=== PATIENT | male | born 1975 | race Caucasian/White ===

== ENCOUNTER 2018-02-07 20:08 | Emergency (ER) | payer MEDICAID ==
[2018-02-07 20:18] VITALS: O2SAT 100
--- NOTE | 2018-02-07 20:58 | C.PDOC ---
History Of Present Illness 42 year old male with PMHx of COPD, HTN, depression is brought to the ED accompanied by Police for evaluation. Patient was arrested in [facility] with no physical altercation. Patient states he has high blood pressure has not been taking his medications for the past 3 months. Patient teran snot recall the name of his medications besides clonidine. Patient also c/o bilateral weakness of his legs. Patient denies fever, chills, visual changes, headache, nausea, vomit, dizziness, CP, palpitations, SOB. Time Seen by Provider: 02/07/18 20:27 Chief Complaint (Nursing): Medical Clearance History Per: Patient History/Exam Limitations: no limitations Onset/Duration Of Symptoms: Hrs Current Symptoms Are (Timing): Still Present Recent travel outside of the [place] States: No Additional History Per: Patient Past Medical History Reviewed: Historical Data, Nursing Documentation, Vital Signs Vital Signs: Last Vital Signs Temp 98.2 F 02/07/18 20:15 Pulse 51 L 02/07/18 20:15 Resp 20 02/07/18 20:15 BP 166/112 H 02/07/18 20:15 Pulse Ox 100 02/07/18 20:15 - Medical History PMH: Asthma, Bipolar Disorder, COPD, HTN, Schizophrenia Denies: HIV, Chronic Kidney Disease Surgical History: No Surg Hx - [facility] Procedures INTRODUCTION OF ANTI-INFLAM INTO RESP TRACT, VIA OPENING (09/04/17) Family History: States: Unknown Family Hx - Social History Hx Tobacco Use: Yes (2 packs a day) Hx Alcohol Use: No Hx Substance Use: No Review Of Systems Constitutional: Negative for: Fever, Chills Eyes: Negative for: Vision Change Cardiovascular: Negative for: Chest Pain, Palpitations Respiratory: Negative for: Shortness of Breath Gastrointestinal: Negative for: Nausea, Vomiting, Abdominal Pain Skin: Negative for: Rash Neurological: Negative for: Weakness, Numbness, Headache, Dizziness Physical Exam - Physical Exam Appears: Non-toxic, No Acute Distress Skin: Normal Color, Warm, Dry Head: Atraumatic, Normacephalic, Other (healing bruise forehead) Eye(s): bilateral: Normal Inspection, PERRL, EOMI Oral Mucosa: Moist Neck: Normal ROM, Supple Chest: Symmetrical Cardiovascular: Rhythm Irregular Respiratory: Normal Breath Sounds, No Rales, No Rhonchi, No Wheezing Gastrointestinal/Abdominal: Soft, No Tenderness, No Guarding, No Rebound Extremity: Normal ROM, No Tenderness, No Swelling Neurological/Psych: Oriented x3, Normal Speech, Normal Cognition, Normal Motor, Normal Sensation Gait: Steady ED Course And Treatment ECG: Interpreted By Me, Viewed By Me ECG Rhythm: Sinus Bradycardia ECG Interpretation: Normal (sinus arrythmia, typical in younger patients.) Rate From EC (BPM) O2 Sat by Pulse Oximetry: 100 (On RA) Pulse Ox Interpretation: Normal Medical Decision Making Medical Decision Making: Plan: * EKG * Vasotec 40 mg PO moderately well controlled BP off Clonidine, which is inappropriate mediation for incarcerated pt Start Vasotec PO, recommend continued as inpt. no acute neurological symptoms nor evidence of hypertensive Urgency/Emergency. sinus arrythmia no intervention needed elevated BP ? related to nicotine w/d, anxiety, baseline chronic HTN Start Vasotec 40 QD Recommend to continue same while incarcerated Medically cleared for incarceration Disposition - Disposition Disposition: RELEASED IN POLICE CUST[employer] Disposition Time: 21:18 Condition: GOOD Forms: [facility] (Portuguese) - Clinical Impression Clinical Impression: Medical assessment, Hypertension - Scribe Statement The provider has reviewed the documentation as recorded by the Scribe Jimbo Osullivan All medical record entries made by the Scribe were at my direction and personally dictated by me. I have reviewed the chart and agree that the record accurately reflects my personal performance of the history, physical exam, medical decision making, and the department course for this patient. I have also personally directed, reviewed, and agree with the discharge instructions and disposition.
[2018-02-07 21:38] VITALS: BP 161/109; PULSE 50; RESP 18; TEMP 97.6
--- NOTE | 2018-02-10 19:41 | CARD ---
APPROVED REPORT Date of service: 02/07/2018 EKG Measurement Heart [id number] <Conclusion> Sinus bradycardia with 1st degree AV block Otherwise normal ECG
== END 2018-02-07 21:39 ==
LOC: C.ER 20:08
DX: I10 Essential (primary) hypertension (principal); F20.9 Schizophrenia, unspecified; F31.9 Bipolar disorder, unspecified; J44.9 Chronic obstructive pulmonary disease, unspecified; F17.210 Nicotine dependence, cigarettes, uncomplicated

== ENCOUNTER 2018-03-30 09:23 | Emergency (ER) | payer MEDICAID ==
[2018-03-30] MEDS ORDERED: Albuterol-Ipratrop 3 mg / 0.5 (3 ml) UD ONE (10:06)
--- NOTE | 2018-03-30 10:15 | RAD ---
Date of service: 03/30/2018 PROCEDURE: CHEST RADIOGRAPH, 1 VIEW HISTORY: SOB COMPARISON: None available. FINDINGS: LUNGS: The lungs are well inflated and clear. No focal consolidation. There is minimal discoid atelectasis in the lower lobes. PLEURA: No pneumothorax. There is blunting of both costophrenic angles. CARDIOVASCULAR: The heart is normal in size. No aortic atherosclerotic calcifications present. OSSEOUS STRUCTURES: Within normal limits for the patient's age. VISUALIZED UPPER ABDOMEN: Normal. OTHER FINDINGS: None. IMPRESSION: No active pulmonary disease. Blunting of costophrenic angles may represent small effusion or pleural thickening.
[2018-03-30 10:29] LABS: BASO % 0.4 % (0.0-2.0); EOS # 0.1 K/uL (0.0-0.7); EOS % 1.2 % (0.0-4.0); HEMOGLOBIN 14.4 g/dL (12.0-18.0); LYMPH # 1.8 K/uL (1.0-4.3); LYMPH % 40.4 % (20.0-40.0); MEAN CELL VOLUME 91.2 fL (80.0-94.0); MEAN CORPUSCULAR HEMOGLOBIN 30.5 pg (27.0-31.0); MEAN CORPUSCULAR HGB CONC 33.5 g/dL (33.0-37.0); MEAN PLATELET VOLUME 10.2 fL (7.2-11.7); MONO # 0.6 K/uL (0.0-0.8); RBC 4.73 Mil/uL (4.40-5.90); RED CELL DISTRIBUTION WIDTH 13.7 % (11.5-14.5); WHITE BLOOD COUNT 4.4 K/uL (4.8-10.8)
[2018-03-30] MEDS: Albuterol-Ipratrop 3 mg / 0.5 (3 ml) UD IH SCH (10:50)
[2018-03-30 10:54] LABS: ALB/GLOB RATIO 1.4 (1.0-2.1); ALBUMIN 4.7 g/dL (3.5-5.0); ALT/SGPT 25 U/L (21-72); AST/SGOT 21 U/L (17-59); BLOOD UREA NITROGEN 11 mg/dL (9-20); CALCIUM 9.5 mg/dl (8.6-10.4); GFR NON-AFRICAN AMERICAN > 60
--- NOTE | 2018-03-30 10:56 | C.PDOC ---
History Of Present Illness 42 year old male presents with a history of hypertension and mental illness presents to the ED for evaluation of constant shortness of breath exacerbated by exertion for 3 days. Denies fever, chills, nausea, vomiting, and any other associated symptoms. Time Seen by Provider: 03/30/18 09:52 Chief Complaint (Nursing): Shortness Of Breath History Per: Patient History/Exam Limitations: no limitations Onset/Duration Of Symptoms: Days (x3) Current Symptoms Are (Timing): Still Present Recent travel outside of the [place]: No Past Medical History Reviewed: Historical Data, Nursing Documentation, Vital Signs Vital Signs: Last Vital Signs Temp 98.3 F 03/30/18 09:38 Pulse 72 03/30/18 09:38 Resp 18 03/30/18 09:38 BP 190/129 H 03/30/18 09:38 Pulse Ox 97 03/30/18 09:38 - Medical History PMH: Asthma, Bipolar Disorder, COPD, HTN, Schizophrenia Denies: HIV, Chronic Kidney Disease - [facility] Procedures INTRODUCTION OF ANTI-INFLAM INTO RESP TRACT, VIA OPENING (09/04/17) Family History: States: Unknown Family Hx - Social History Hx Tobacco Use: Yes (2 packs a day) Hx Alcohol Use: No Hx Substance Use: No Review Of Systems Except As Marked, All Systems Reviewed And Found Negative. Constitutional: Negative for: Fever, Chills Respiratory: Positive for: Shortness of Breath Gastrointestinal: Negative for: Nausea, Vomiting Physical Exam - Physical Exam Appears: Non-toxic, No Acute Distress Skin: Normal Color, Warm, Dry Head: Atraumatic, Normacephalic Eye(s): bilateral: Normal Inspection Oral Mucosa: Moist Neck: Normal ROM, Supple Chest: Symmetrical, No Deformity Cardiovascular: Rhythm Regular, No Murmur Respiratory: No Rales, No Rhonchi, Wheezing (bilaterally. ), Other (moderate respiratory distress.) Gastrointestinal/Abdominal: Soft, No Tenderness, Other (right inguinal hernia easily reducible.) Extremity: Bilateral: Atraumatic, Normal Color And Temperature, Normal ROM Neurological/Psych: Oriented x3, Normal Speech, Normal Cognition ED Course And Treatment - Laboratory Results Result Diagrams: 03/30/18 10:18 03/30/18 10:18 ECG Rhythm: Sinus Rhythm Interpretation Of ECG: No ST elevation. QT normal. Rate From EC O2 Sat by Pulse Oximetry: 97 (RA) Pulse Ox Interpretation: Normal - Other Rad CXR X-Ray: Viewed By Me, Read By Radiologist Interpretation: FINDINGS: LUNGS: The lungs are well inflated and clear. No focal consolidation. There is minimal discoid atelectasis in the lower lobes. PLEURA: No pneumothorax. There is blunting of both costophrenic angles. CARDIOVASCULAR: The heart is normal in size. No aortic atherosclerotic calcifications present. OSSEOUS STRUCTURES: Within normal limits for the patient's age. VISUALIZED UPPER ABDOMEN: Normal. OTHER FINDINGS: None. IMPRESSION: No active pulmonary disease. Blunting of costophrenic angles may represent small effusion or pleural thickening. Critical Care Time - Critical Care Note Total Time (in mins): 35 Documented critical care: time excludes all time spent performing seperately billable procedures. Medical Decision Making Medical Decision Making: Initial plan: -EKG -Blood sent. -CXR -Duoneb nebulizer treatment. -Solu-medrol -[facility] Progress/Update: Improved in O2 Sat, bp 124/90, lungs: mild wheezing good air movement. Disposition Counseled Patient/Family Regarding: Diagnosis, Need For Followup, Rx Given - Disposition Referrals: Lety Barfield MD [Staff Provider] - Disposition: HOME/ ROUTINE Disposition Time: 12:55 Condition: STABLE Prescriptions: Albuterol HFA [Ventolin HFA 90 mcg/actuation (8 g)] 2 puff IH [id number] #1 puff Enalapril/Hydrochlorothiazide [Enalapril-Hctz 10-25 mg Tablet] 1 each PO DAILY #15 tablet Prednisone [Deltasone] 20 mg PO BID #8 tablet Instructions: Chronic Obstructive Pulmonary Disease (COPD), Including Emphysema, High Blood Pressure in Adults Forms: [facility] (Greek), General Discharge Instructions - Clinical Impression Clinical Impression: Chr obstructive pulmonary disease w/ acute lower respiratory infxn, Hypertension - Scribe Statement The provider has reviewed the documentation as recorded by the Scribe (Jessica Kern) Provider Attestation: All medical record entries made by the Scribe were at my direction and personally dictated by me. I have reviewed the chart and agree that the record accurately reflects my personal performance of the history, physical exam, medical decision making, and the department course for this patient. I have also personally directed, reviewed, and agree with the discharge instructions and disposition.
[2018-03-30 11:05] LABS: B-TYPE NATRIURETIC PEPTIDE 88.3 pg/mL (0-450)
[2018-03-30] MEDS ORDERED: Albuterol 0.083% Inhal Sol (2.5 mg/3 mL) UD INH STA (11:23)
[2018-03-30] MEDS ORDERED: Magnesium Sulfate 1 gm in D5W 1 GM/100 ML BAG IVPB ONE (12:07)
[2018-03-30 14:13] VITALS: BP 137/90; PULSE 75; RESP 18; TEMP 98
[2018-03-30 19:31] VITALS: O2SAT 97
--- NOTE | 2018-03-31 21:20 | CARD ---
APPROVED REPORT Date of service: 03/30/2018 EKG Measurement Heart [id number] <Conclusion> Normal sinus rhythm with sinus arrhythmia Normal ECG
== END 2018-03-30 14:23 | disposition home or self-care (01) ==
LOC: C.ER 09:23
DX: J44.0 Chronic obstructive pulmonary disease with (acute) lower respiratory infection (principal); I10 Essential (primary) hypertension; Z87.891 Personal history of nicotine dependence
CPT/HCPCS: 71045; 80053; 83880; 84484; 85025; 87804; 93005; 94640; 96365; 99284; J2930; J3475

== ENCOUNTER 2018-05-11 09:26 | Inpatient (IN) | payer MEDICAID ==
[2018-05-11 09:26] VITALS: BMI 18.8
[2018-05-11] MEDS ORDERED: Albuterol-Ipratrop 3 mg / 0.5 (3 ml) UD ONE (09:44)
[2018-05-11] MEDS ORDERED: Albuterol-Ipratrop 3 mg / 0.5 (3 ml) UD INH STA (10:06)
[2018-05-11 10:28] LABS: BASO % 0.7 % (0.0-2.0); EOS # 0.1 K/uL (0.0-0.7); EOS % 1.4 % (0.0-4.0); LYMPH # 1.7 K/uL (1.0-4.3); MEAN CELL VOLUME 92.7 fL (80.0-94.0); MEAN CORPUSCULAR HGB CONC 33.5 g/dL (33.0-37.0); MEAN PLATELET VOLUME 9.4 fL (7.2-11.7); MONO # 0.6 K/uL (0.0-0.8); MONO % 11.3 % (0.0-10.0); NEUT # 2.5 K/uL (1.8-7.0); NEUT % 51.6 % (50.0-75.0); RBC 4.18 Mil/uL (4.40-5.90); RED CELL DISTRIBUTION WIDTH 14.2 % (11.5-14.5); WHITE BLOOD COUNT 4.9 K/uL (4.8-10.8)
--- NOTE | 2018-05-11 10:28 | C.PDOC ---
History Of Present Illness 42 year old male with history of COPD, HTN, and Schizophrenia presents to ED for medical evaluation of worsening SOB with associated productive cough, chills, and right-sided headache. Patient states that for the past month he has had constant SOB, despite use of Ventolin. Patient's productive cough has sputum that is yellow in nature. Patient was last seen at [facility] on 05/04/18 for COPD exacerbation and was advised to continue using his Albuterol inhaler and was given Pregnisone 20 mg PO BID. Patient was advised to follow up with clinic; however, he states that his SOB has worsened to dyspnea with exertion. He denies any dizziness, weakness, chest pain, nausea, vomiting, and abdominal pain. Time Seen by Provider: 05/11/18 09:44 Chief Complaint (Nursing): Shortness Of Breath History Per: Patient History/Exam Limitations: no limitations Onset/Duration Of Symptoms: Worse Since, Other (1 month) Current Symptoms Are (Timing): Still Present Current Respiratory Medications: Other (ventolin pump) Associated Symptoms: Chills, Productive Cough, Other (Headache). denies: Fever, Chest Pain, Dizziness Past Medical History Reviewed: Historical Data, Nursing Documentation, Vital Signs Vital Signs: Last Vital Signs Temp 97.9 F 05/11/18 09:38 Pulse 58 L 05/11/18 09:38 Resp 22 05/11/18 09:38 BP 165/105 H 05/11/18 09:38 Pulse Ox 99 05/11/18 09:38 - Medical History PMH: Asthma, Bipolar Disorder, COPD, HTN, Pneumonia, Schizophrenia Denies: HIV, Chronic Kidney Disease Surgical History: No Surg Hx - [facility] Procedures INTRODUCTION OF ANTI-INFLAM INTO RESP TRACT, VIA OPENING (09/04/17) Family History: States: Unknown Family Hx - Social History Hx Tobacco Use: Yes (2 packs a day) Hx Alcohol Use: No Hx Substance Use: No - Immunization History Hx Tetanus Toxoid Vaccination: Yes Hx Influenza Vaccination: Yes Hx Pneumococcal Vaccination: No Review Of Systems Constitutional: Positive for: Chills. Negative for: Fever, Weakness Eyes: Negative for: Vision Change Cardiovascular: Negative for: Chest Pain, Palpitations Respiratory: Positive for: Cough, SOB with Excertion, Sputum (yellow in nature), Wheezing Gastrointestinal: Negative for: Nausea, Vomiting, Abdominal Pain Musculoskeletal: Negative for: Neck Pain Neurological: Positive for: Headache (right-sided). Negative for: Weakness, Dizziness Physical Exam - Physical Exam Appears: Non-toxic, No Acute Distress Skin: Normal Color, Warm, Dry Head: Atraumatic, Normacephalic Eye(s): bilateral: Normal Inspection, PERRL Nose: No Discharge Oral Mucosa: Moist Throat: No Erythema, No Exudate Neck: Normal ROM, Supple Chest: Symmetrical, No Deformity Cardiovascular: Rhythm Regular, No Murmur Respiratory: No Accessory Muscle Use, Rhonchi (lower base of the right side), Wheezing (diffuse) Gastrointestinal/Abdominal: Soft, No Tenderness Extremity: No Pedal Edema, Capillary Refill (<2 seconds) Extremity: Bilateral: Atraumatic, Normal Color And Temperature Neurological/Psych: Oriented x3, Normal Speech, Normal Cognition, Normal Motor, Normal Sensation ED Course And Treatment - Laboratory Results Result Diagrams: 05/11/18 10:22 05/11/18 10:22 ECG: Interpreted By Me, Viewed By Me ECG Rhythm: Sinus Rhythm Interpretation Of ECG: sinus rhythm with 1st degree AV block with premature atrial complexes Rate From EC O2 Sat by Pulse Oximetry: 99 (RA) - Other Rad CXR X-Ray: Interpreted by Me, Viewed By Me Interpretation: Accession No. : [id number]. Patient Name / ID : SUKHWINDER LORD / [id number]. Exam Date : 05/11/2018 10:15:52 ( Approved ). Study Comment : Sex / Age : M / 42Y. Creator : Nino Suero MD. Dictator : Nino Suero MD. Customer Resolution Specialist : Special Makeup Fx Artist Instructor : Nino Suero MD. Approver2 : Report Date : 05/11/2018 11:36:39. My Comment : . Date of service: 05/11/2018. HISTORY: SOB. COMPARISON: 03/30/2018. TECHNIQUE: Chest PA and lateral. FINDINGS: LUNGS: No active pulmonary disease. PLEURA: No significant pleural effusion identified. No pneumothorax apparent. CARDIOVASCULAR: No aortic atherosclerotic calcification present. Normal cardiac size. No pulmonary vascular congestion. OSSEOUS STRUCTURES: No significant abnormalities. VISUALIZED UPPER ABDOMEN: Normal. OTHER FINDINGS: None. IMPRESSION: No active disease. Medical Decision Making Medical Decision Making: Impression: SOB, RODRIGUES, COPD exacerbation Plan: EKG and CXR ordered for patient. Labs ordered including cardiac enzymes Patient given Duoneb INH x 2 and Solu- Medrol IVP HCTZ and Enalipril given to lower BP (denies taking this morning) Patient reassessed and is still wheezing Magnesium IVPB x 2 Patient reassessed and slight improvement of wheezing but patient still feels SOB D/W Dr. Nino Moss- accepted patient for admission Ordered urine tox as per request Disposition Discussed With : Nino Moss Doctor Will See Patient In The: Hospital Counseled Patient/Family Regarding: Studies Performed, Diagnosis, Need For Followup - Disposition Disposition: HOSPITALIZED Disposition Time: 13:13 Condition: STABLE Forms: [employer] (Setswana) - Clinical Impression Clinical Impression: COPD (chronic obstructive pulmonary disease), Dyspnea, SOB (shortness of breath) on exertion - PA / RETAIL MERCHANDISING SPECIALIST / Resident Statement MD/DO has reviewed & agrees with the documentation as recorded. (Joyce Cross) - Scribe Statement The provider has reviewed the documentation as recorded by the Scribe (Joyce Cross) All medical record entries made by the Scribe were at my direction and perso arun dictated by me. I have reviewed the chart and agree that the record accurately reflects my personal performance of the history, physical exam, medical decision making, and the department course for this patient. I have also personally directed, reviewed, and agree with the discharge instructions and disposition. Decision To Admit - Pt Status Changed To: Hospital Disposition Of: Observation - . Bed Request Type: Regular Admitting Physician: Nino Moss Patient Diagnosis: COPD (chronic obstructive pulmonary disease), Dyspnea, SOB (shortness of breath) on exertion
[2018-05-11 10:50] LABS: ALB/GLOB RATIO 1.2 (1.0-2.1); ALBUMIN 3.7 g/dL (3.5-5.0); ALT/SGPT 8 U/L (21-72); AST/SGOT 17 U/L (17-59); BLOOD UREA NITROGEN 8 mg/dL (9-20); CALCIUM 9.1 mg/dl (8.6-10.4); GFR NON-AFRICAN AMERICAN > 60
[2018-05-11 10:59] LABS: B-TYPE NATRIURETIC PEPTIDE 110 pg/mL (0-450)
[2018-05-11] MEDS ORDERED: Magnesium Sulfate 1 gm in D5W 1 GM/100 ML BAG IVPB ONE ×2 (10:59→11:01)
[2018-05-11] MEDS ORDERED: Magnesium Sulfate 1 gm in D5W 2 GM/200 ML BAG IVPB ONE (11:10)
--- NOTE | 2018-05-11 11:40 | RAD ---
Date of service: 05/11/2018 HISTORY: SOB COMPARISON: 03/30/2018 TECHNIQUE: Chest PA and lateral FINDINGS: LUNGS: No active pulmonary disease. PLEURA: No significant pleural effusion identified. No pneumothorax apparent. CARDIOVASCULAR: No aortic atherosclerotic calcification present. Normal cardiac size. No pulmonary vascular congestion. OSSEOUS STRUCTURES: No significant abnormalities. VISUALIZED UPPER ABDOMEN: Normal. OTHER FINDINGS: None. IMPRESSION: No active disease.
[2018-05-11 13:34] VITALS: RESP 20
--- NOTE | 2018-05-11 13:56 | CP.PCM.HP ---
<Mark Ontiveros - Last Filed: 05/11/18 18:09> History of Present Illness - History of Present Illness History of Present Illness: History and physical for Hospitalist service HPI: Patient is a 42 year old male with history of COPD, hypertension, schizophrenia, bipolar disorder, possible TIA, who presents for 3 week history of progressively worsening shortness of breath worse with exertion associated with cough productive of yellow, occasionally blood tinged sputum. He states he has had fevers and chills on and off. States he had a recent right sided headache, which has since decreased associated with blurry vision. Denies any changes in hearing. Denies sore throat. Patient complains of chest pain describes as feeling like someone is sitting on his chest for the past 2 days associated with palpitations when he feels anxious. Patient denies abdominal pain, nausea, vomiting, diarrhea, constipation, urinary symptoms, dysuria, leg pain. He admits to have unspecified balance issues, but has not followed up for those issues. Patient denies recent travel, recent sick contacts. PMH: COPD, HTN, schizophrenia, bipolar, possible TIA PSH: chest tube for pleural effusions Home meds: unspecified. Gets medications from [facility] in [place]. Allergies: NKDA Social hx: former smoker, quit 1 month ago. Smoked >2ppd for 15 years. denies alcohol use. Used to smoke marijuana, denies drugs. Lives with his girlfriend. Family hx: Brother - , epilepsy. Mother and father: alive and healthy. Healthcare proxy: Girlfriend Jessica [phone] Full code Present on Admission - Present on Admission Any Indicators Present on Admission: No Review of Systems - Constitutional Constitutional: Chills, Fever - EENT Nose/Mouth/Throat: absent: Sore Throat - Cardiovascular Cardiovascular: Dyspnea, Palpitations. absent: Syncope - Respiratory Respiratory: Cough, Dyspnea on Exertion - Gastrointestinal Gastrointestinal: absent: Abdominal Pain, Diarrhea, Nausea, Vomiting - Genitourinary Genitourinary: absent: Difficulty Urinating, Dysuria - Musculoskeletal Musculoskeletal: absent: Back Pain - Psychiatric Psychiatric: Anxiety, Auditory Hallucinations (hears his brother's voice, recently was anniversary of his brother's ), Depression Past Patient History - Past Medical History & Family History Past Medical History?: Yes - Past Social History Smoking Status: Former Smoker - CARDIAC Hx Hypertension: Yes - PULMONARY Hx Asthma: Yes Hx Chronic Obstructive Pulmonary Disease (COPD): Yes Hx Pneumonia: Yes - NEUROLOGICAL Hx Neurological Disorder: No - HEENT Hx HEENT Problems: No - RENAL Hx Chronic Kidney Disease: No - ENDOCRINE/METABOLIC Hx Endocrine Disorders: No - HEMATOLOGICAL/ONCOLOGICAL Hx Human Immunodeficiency Virus (HIV): No - INTEGUMENTARY Hx Dermatological Problems: No - MUSCULOSKELETAL/RHEUMATOLOGICAL Hx Musculoskeletal Disorders: Yes Hx Falls: Yes - GASTROINTESTINAL Hx Gastrointestinal Disorders: No - GENITOURINARY/GYNECOLOGICAL Hx Genitourinary Disorders: No - PSYCHIATRIC Hx Bipolar Disorder: Yes Hx Schizophrenia: Yes Hx Substance Use: No - SURGICAL HISTORY Hx Surgeries: Yes Other/Comment: "chest tube from pneumonia" - ANESTHESIA Hx Anesthesia: No Hx Anesthesia Reactions: No Hx Malignant Hyperthermia: No Meds Allergies/Adverse Reactions: Allergies Allergy/AdvReac Type Severity Reaction Status Date / Time No Known Allergies Allergy Verified 05/11/18 09:41 Physical Exam - Constitutional Appears: Non-toxic Additional comments: Patient appears short of breath - Head Exam Head Exam: ATRAUMATIC, NORMOCEPHALIC - Eye Exam Eye Exam: EOMI, PERRL - ENT Exam ENT Exam: Mucous Membranes Moist, Normal Oropharynx - Neck Exam Neck exam: Positive for: Full Rom. Negative for: Tenderness, Thyromegaly - Respiratory Exam Respiratory Exam: Rhonchi, Wheezes. absent: Chest Wall Tenderness, Respiratory Distress, Stridor - Cardiovascular Exam Cardiovascular Exam: REGULAR RHYTHM, +S1, +S2. absent: Gallop, Rubs, Systolic Murmur - GI/Abdominal Exam GI & Abdominal Exam: Normal Bowel Sounds, Soft. absent: Distended, Firm, Guarding, Hernia, Tenderness - Extremities Exam Extremities exam: Positive for: pedal pulses present. Negative for: calf tenderness, pedal edema - Back Exam Back exam: absent: CVA tenderness (L), CVA tenderness (R) - Neurological Exam Neurological exam: Alert, CN II-XII Intact, Oriented x3 - Psychiatric Exam Psychiatric exam: Normal Affect, Normal Mood - Skin Skin Exam: Dry, Intact, Warm Results - Vital Signs Recent Vital Signs: Last Vital Signs Temp 97.9 F 05/11/18 09:38 Pulse 72 05/11/18 13:33 Resp 20 05/11/18 13:33 BP 158/95 H 05/11/18 13:33 Pulse Ox 96 05/11/18 13:33 - Labs Result Diagrams: 05/11/18 10:22 05/11/18 10:22 Labs: Laboratory Results - last 24 hr 05/11/18 05/11/18 10:22 10:22 WBC 4.9 RBC 4.18 L Hgb 13.0 Hct 38.7 MCV 92.7 MCH 31.0 MCHC 33.5 RDW 14.2 Plt Count 317 D MPV 9.4 Neut % (Auto) 51.6 Lymph % (Auto) 35.0 [place] % (Auto) 11.3 H Eos % (Auto) 1.4 Baso % (Auto) 0.7 Neut # (Auto) 2.5 Lymph # (Auto) 1.7 [place] # (Auto) 0.6 Eos # (Auto) 0.1 Baso # (Auto) 0.0 Sodium 139 Potassium 4.2 Chloride 106 Carbon Dioxide 27 Anion Gap 10 BUN 8 L Creatinine 0.6 L Est GFR ( Amer) > 60 Est GFR (Non-Af Amer) > 60 Random Glucose 86 D Calcium 9.1 Total Bilirubin 0.4 AST 17 D ALT 8 L D Alkaline Phosphatase 63 Troponin I < 0.0120 NT-Pro-B Natriuret Pep 110 Total Protein 6.7 Albumin 3.7 Globulin 3.0 Albumin/Globulin Ratio 1.2 Assessment & Plan - Assessment and Plan (Free Text) Assessment: 42 year old male with history of COPD, hypertension, schizophrenia who presents for worsening shortness of breath. Plan: Acute Dyspnea worse with exertion Hx of COPD In ED: patient received Duoneb, Solumedrol [id number]. Duonebs Q4 [facility] Breo ellipta Solumedrol 40mg IV Q8 proBNP 110 Troponin <0.0120 EKG: SR at 63 CXR: hyperinflated No leukocytosis, afebrile f/u HIV, alpha antitrypsin, legionella, mycoplasma, Strep pneumonia f/u ECHO f/u Urine drug screen, hep panel, TSH, T4 History of hypertension Blood pressure elevated Received Enalapril 10mg PO, HCTZ 25mg PO in ED Avoid beta blockers until UDS Norvasc 5mg PO daily Schizophrenia Bipolar disorder Patient states he has not taken any medications since he has suicidal thoughts Currently orientedx3, admits to hearing his brother's thoughts after recent anniversary of his History of possible TIA ASA 81mg PO Follow up lipid panel, A1c, TSH/T4, Unsteady gait PT/OT Follow up Urine drug screen Prophylaxis: Heart healthy diet SCDs Pepcid 20mg Case discussed with Dr. Isa Ontiveros, PGY1 <Nino Moss - Last Filed: 05/11/18 18:29> Results - Vital Signs Recent Vital Signs: Last Vital Signs Temp 98.4 F 05/11/18 15:00 Pulse 68 05/11/18 15:00 Resp 20 05/11/18 15:00 BP 146/88 05/11/18 15:00 Pulse Ox 98 05/11/18 15:00 - Labs Result Diagrams: 05/11/18 10:22 05/11/18 10:22 Labs: Laboratory Results - last 24 hr 05/11/18 05/11/18 05/11/18 10:22 10:22 16:37 WBC 4.9 RBC 4.18 L Hgb 13.0 Hct 38.7 MCV 92.7 MCH 31.0 MCHC 33.5 RDW 14.2 Plt Count 317 D MPV 9.4 Neut % (Auto) 51.6 Lymph % (Auto) 35.0 [place] % (Auto) 11.3 H Eos % (Auto) 1.4 Baso % (Auto) 0.7 Neut # (Auto) 2.5 Lymph # (Auto) 1.7 [place] # (Auto) 0.6 Eos # (Auto) 0.1 Baso # (Auto) 0.0 Sodium 139 Potassium 4.2 Chloride 106 Carbon Dioxide 27 Anion Gap 10 BUN 8 L Creatinine 0.6 L Est GFR ( Amer) > 60 Est GFR (Non-Af Amer) > 60 Random Glucose 86 D Hemoglobin A1c Calcium 9.1 Total Bilirubin 0.4 AST 17 D ALT 8 L D Alkaline Phosphatase 63 Troponin I < 0.0120 NT-Pro-B Natriuret Pep 110 Total Protein 6.7 Albumin 3.7 Globulin 3.0 Albumin/Globulin Ratio 1.2 Triglycerides Cholesterol LDL Cholesterol Direct HDL Cholesterol Thyroxine (T4) TSH 3rd Generation Urine Opiates Screen Negative Urine Methadone Screen Negative Ur Barbiturates Screen Negative Ur Phencyclidine Scrn Negative Ur Amphetamines Screen Negative U Benzodiazepines Scrn Negative U Oth Cocaine Metabols Negative U Cannabinoids Screen Negative Hepatitis A IgM Ab Hep Bs Antigen Hep B Core IgM Ab Hepatitis C Antibody HIV 1&2 Antibody Screen 05/11/18 05/11/18 05/11/18 17:02 17:02 17:02 WBC RBC Hgb Hct MCV MCH MCHC RDW Plt Count MPV Neut % (Auto) Lymph % (Auto) [place] % (Auto) Eos % (Auto) Baso % (Auto) Neut # (Auto) Lymph # (Auto) [place] # (Auto) Eos # (Auto) Baso # (Auto) Sodium Potassium Chloride Carbon Dioxide Anion Gap BUN Creatinine Est GFR ( Amer) Est GFR (Non-Af Amer) Random Glucose Hemoglobin A1c 5.7 Calcium Total Bilirubin AST ALT Alkaline Phosphatase Troponin I NT-Pro-B Natriuret Pep Total Protein Albumin Globulin Albumin/Globulin Ratio Triglycerides 50 Cholesterol 153 LDL Cholesterol Direct 84 HDL Cholesterol 60 Thyroxine (T4) 9.91 TSH 3rd Generation 0.23 L Urine Opiates Screen Urine Methadone Screen Ur Barbiturates Screen Ur Phencyclidine Scrn Ur Amphetamines Screen U Benzodiazepines Scrn U Oth Cocaine Metabols U Cannabinoids Screen Hepatitis A IgM Ab Hep Bs Antigen Hep B Core IgM Ab Hepatitis C Antibody HIV 1&2 Antibody Screen Negative 05/11/18 17:02 WBC RBC Hgb Hct MCV MCH MCHC RDW Plt Count MPV Neut % (Auto) Lymph % (Auto) [place] % (Auto) Eos % (Auto) Baso % (Auto) Neut # (Auto) Lymph # (Auto) [place] # (Auto) Eos # (Auto) Baso # (Auto) Sodium Potassium Chloride Carbon Dioxide Anion Gap BUN Creatinine Est GFR ( Amer) Est GFR (Non-Af Amer) Random Glucose Hemoglobin A1c Calcium Total Bilirubin AST ALT Alkaline Phosphatase Troponin I NT-Pro-B Natriuret Pep Total Protein Albumin Globulin Albumin/Globulin Ratio Triglycerides Cholesterol LDL Cholesterol Direct HDL Cholesterol Thyroxine (T4) TSH 3rd Generation Urine Opiates Screen Urine Methadone Screen Ur Barbiturates Screen Ur Phencyclidine Scrn Ur Amphetamines Screen U Benzodiazepines Scrn U Oth Cocaine Metabols U Cannabinoids Screen Hepatitis A IgM Ab Negative Hep Bs Antigen Negative Hep B Core IgM Ab Negative Hepatitis C Antibody Negative HIV 1&2 Antibody Screen Attending/Attestation - Attestation I have personally seen and examined this patient.: Yes I have fully participated in the care of the patient.: Yes I have reviewed all pertinent clinical information: Yes Notes (Text): 05/11/18 18:22 Medical attending: Patient was seen and examined by me. Agree with the above note by the resident The patient reported ongoing shortness of breath. It should be mentioned that when meeting the patient and talking to him he had a strange affect at times The UDS is negative The patient on the CXRAY has a very hyperexpanded lung alexander. He is a smoker. This may very well be an exacerbation of COPD, however he is relatively young He tells us that he uses a rolling walker and that he has difficulty walking up steps We will need a PT evaluation In the mean time we should get IV solumedrol, nebulizer treatments, as well as long inhalers treatment On exam it should be pointed out he has a very tall heigh as well as long limbs and long face. On exam I did not hear a heart mumur but perhaps he may have Marfan's Syndrome. Reguardless there is an echo ordered - consider a CT of the chest however the XRAY looked ok besides being hyperexpanded. Nino Moss
[2018-05-11] MEDS ORDERED: MethylPREDNISolone 40 mg Vial IVP SCH (14:43)
[2018-05-11 17:08] LABS: BARBITURATES, UR NEGATIVE (NEGATIVE); BENZODIAZEPINES, UR NEGATIVE (NEGATIVE); OPIATES, UR NEGATIVE (NEGATIVE); PHENCYCLIDINE, UR NEGATIVE (NEGATIVE)
[2018-05-11 18:03] LABS: HEPATITIS B SURFACE AG Negative (NEGATIVE)
[2018-05-11 18:09] LABS: HEPATITIS A IGM NEGATIVE (NEGATIVE); HEPATITIS B CORE AB NEGATIVE (NEGATIVE)
[2018-05-11 18:21] LABS: HEPATITIS C ANTIBODY NEGATIVE (NEGATIVE)
[2018-05-11 18:45] LABS: FOLATE 12.6 ng/mL
[2018-05-11] MEDS: Albuterol-Ipratrop 3 mg / 0.5 (3 ml) UD INH SCH ×2 (20:30→23:54)
[2018-05-11] MEDS: MethylPREDNISolone 40 mg Vial IVP SCH (21:21)
[2018-05-12] MEDS: Albuterol-Ipratrop 3 mg / 0.5 (3 ml) UD INH SCH ×5 (01:26→19:46)
[2018-05-12] MEDS: MethylPREDNISolone 40 mg Vial IVP SCH ×3 (05:20→21:25)
[2018-05-12 07:22] LABS: BASO # 0.1 K/uL (0.0-0.2); BASO % 0.5 % (0.0-2.0); HEMOGLOBIN 14.8 g/dL (12.0-18.0); LYMPH # 0.9 K/uL (1.0-4.3); LYMPH % 8.6 % (20.0-40.0); MEAN CELL VOLUME 92.6 fL (80.0-94.0); MEAN CORPUSCULAR HEMOGLOBIN 31.5 pg (27.0-31.0); MEAN PLATELET VOLUME 9.8 fL (7.2-11.7); MONO # 0.3 K/uL (0.0-0.8); MONO % 2.5 % (0.0-10.0); NEUT # 9.6 K/uL (1.8-7.0); NEUT % 88.4 % (50.0-75.0); PLATELET COUNT 395 K/uL (130-400); RBC 4.69 Mil/uL (4.40-5.90); RED CELL DISTRIBUTION WIDTH 14.6 % (11.5-14.5)
[2018-05-12 07:25] LABS: WHITE BLOOD COUNT 10.9 K/uL (4.8-10.8)
[2018-05-12 07:45] LABS: ALB/GLOB RATIO 1.3 (1.0-2.1); ALBUMIN 4.5 g/dL (3.5-5.0); ALT/SGPT 8 U/L (21-72); AST/SGOT 17 U/L (17-59); BLOOD UREA NITROGEN 14 mg/dL (9-20); CALCIUM 10.1 mg/dl (8.6-10.4); GFR NON-AFRICAN AMERICAN > 60
--- NOTE | 2018-05-12 08:06 | CP.PCM.PN ---
Subjective - Date & Time of Evaluation Date of Evaluation: 05/12/18 Time of Evaluation: 17:59 - Subjective Subjective: PGY1 Medicine progress note for Dr. Witt Pt was seen and examined at bedside. Pt is resting comfortably, but began coughing profusely upon interview. Pt denies sob, but reports lower extremity weakness which is chronic. Pt uses a rolling walker at home. He denies fever, chills, chest pain, sob, abdominal pain, n/v/d, headache, dizziness, focal weakness. Objective - Vital Signs/Intake and Output Vital Signs (last 24 hours): Temp Pulse Resp BP Pulse Ox 97.9 F 70 20 157/94 H 96 05/12/18 07:37 05/12/18 07:37 05/12/18 07:37 05/12/18 07:37 05/12/18 07:37 - Medications Medications: Current Medications Albuterol/Ipratropium (Duoneb 3 Mg/0.5 Mg (3 Ml) Ud) 3 ml INH RQ4 [facility] Last Admin: 05/12/18 03:22 Dose: 3 ml Amlodipine Besylate (Norvasc) 5 mg PO DAILY [facility] Aspirin (Aspirin Chewable) 81 mg PO DAILY [facility] Famotidine (Pepcid) 20 mg PO DAILY [facility] Fluticasone/Vilanterol (Breo Ellipta 100-25 Mcg Inh) 1 puff INH RQD [facility] Influenza Virus Vaccine (Flucelvax Quad [id number] Syr) 60 mcg IM .ONCE ONE Stop: 05/13/18 10:01 Methylprednisolone (Solu-Medrol) 40 mg IVP Q8 [facility] Last Admin: 05/12/18 05:20 Dose: 40 mg Pneumococcal Polyvalent Vaccine (Pneumovax 23 Vaccine) 0.5 ml IM .ONCE ONE Stop: 05/13/18 10:01 - Labs Labs: 05/12/18 07:10 05/12/18 07:10 - Additional Findings Additional findings: - Constitutional Appears: Non-toxic, no acute distress - Head Exam Head Exam: ATRAUMATIC, NORMOCEPHALIC - Eye Exam Eye Exam: EOMI, PERRL - ENT Exam ENT Exam: Mucous Membranes Moist, Normal Oropharynx - Neck Exam Neck exam: Positive for: Full Rom. Negative for: Tenderness, Thyromegaly - Respiratory Exam Respiratory Exam: Scant wheezes, rhonchi absent: Chest Wall Tenderness, Respiratory Distress, Stridor - Cardiovascular Exam Cardiovascular Exam: REGULAR RHYTHM, +S1, +S2. absent: Gallop, Rubs, Systolic Murmur - GI/Abdominal Exam GI & Abdominal Exam: Normal Bowel Sounds, Soft. absent: Distended, Firm, Guarding, Hernia, Tenderness - Extremities Exam Extremities exam: Positive for: pedal pulses present. Negative for: calf tenderness, pedal edema - Back Exam Back exam: absent: CVA tenderness (L), CVA tenderness (R) - Neurological Exam Neurological exam: Alert, CN II-XII Intact, Oriented x3 - Psychiatric Exam Psychiatric exam: Normal Affect, Normal Mood - Skin Skin Exam: Dry, Intact, Warm Assessment and Plan - Assessment and Plan (Free Text) Assessment: 42 year old male with history of COPD, hypertension, schizophrenia who presents for worsening shortness of breath. Plan: Acute Dyspnea worse with exertion Hx of COPD Duonebs Q4 TIFFAN[facility] Breo ellipta Solumedrol 40mg IV Q8 reactive leukocytosis, Afebrile, no tachycardia proBNP 110 Troponin <0.0120 EKG: SR at 63 CXR: hyperinflated HIV, mycoplasma, legionella negative f/u ECHO hepatitis panel is negative Supa start moxifloxacin 400 mg PO daily today f/u alpha antitrypsin, strep pneumo, pertussis History of hypertension Well controlled with Norvasc 5mg PO daily Schizophrenia Bipolar disorder Patient states he has not taken any medications Currently oriented x3, admits to hearing his brother's thoughts after recent anniversary of his Denies SI/HI at this time. Denies auditory or visual hallucinations at this time. History of possible TIA ASA 81mg PO Lipid panel WNL, Hgb A1c is 5.7, TSH is low at 0.23, T4 is 9.91 Unsteady gait PT/OT UDS negative Prophylaxis: Heart healthy diet SCDs Pepcid 20mg PT recommendations Dispo: pending SW eval for rehab due to PT recs Case discussed with Dr. Witt
[2018-05-12 09:01] LABS: BANDS 1 % (0-2); LYMPHOCYTE 10 % (20-40); MONOCYTE 3 % (0-10); NEUTROPHIL 86 % (50-75); PLATELET ESTIMATE NORMAL (NORMAL); TOTAL CELLS COUNTED 100
--- NOTE | 2018-05-12 11:31 | CARD ---
APPROVED REPORT Date of service: 05/11/2018 EKG Measurement Heart [id number] <Conclusion> Sinus rhythm with 1st degree AV block with premature atrial complexes Septal infarct, age undetermined Abnormal ECG
[2018-05-13] MEDS: Albuterol-Ipratrop 3 mg / 0.5 (3 ml) UD INH SCH ×7 (00:39→19:50)
[2018-05-13] MEDS: MethylPREDNISolone 40 mg Vial IVP SCH ×3 (05:13→21:38)
[2018-05-13 07:21] LABS: BASO % 0.1 % (0.0-2.0); HEMOGLOBIN 13.4 g/dL (12.0-18.0); LYMPH # 0.7 K/uL (1.0-4.3); LYMPH % 5.5 % (20.0-40.0); MEAN CORPUSCULAR HEMOGLOBIN 30.9 pg (27.0-31.0); MEAN CORPUSCULAR HGB CONC 33.6 g/dL (33.0-37.0); MEAN PLATELET VOLUME 9.6 fL (7.2-11.7); MONO # 0.3 K/uL (0.0-0.8); MONO % 2.5 % (0.0-10.0); NEUT % 91.9 % (50.0-75.0); PLATELET COUNT 337 K/uL (130-400); RBC 4.33 Mil/uL (4.40-5.90); RED CELL DISTRIBUTION WIDTH 14.3 % (11.5-14.5)
[2018-05-13 08:07] LABS: ALB/GLOB RATIO 1.4 (1.0-2.1); ALBUMIN 4.2 g/dL (3.5-5.0); ALT/SGPT < 6 U/L (21-72); AST/SGOT 15 U/L (17-59); BLOOD UREA NITROGEN 19 mg/dL (9-20); CALCIUM 9.7 mg/dl (8.6-10.4); GFR NON-AFRICAN AMERICAN > 60
[2018-05-13 09:16] LABS: LYMPHOCYTE 7 % (20-40); MONOCYTE 3 % (0-10); NEUTROPHIL 90 % (50-75); PLATELET ESTIMATE NORMAL (NORMAL); TOTAL CELLS COUNTED 100
[2018-05-13] MEDS ORDERED: Pneumococcal 23-Valent Vaccine IM ONE (10:00)
[2018-05-13] MEDS ORDERED: Influenza Vaccine 60 mcg/0.5 mL SYR (4YR UP) IM ONE (10:00)
[2018-05-13] MEDS: Fluticasone-Vilanterol 100/25mcg Diskus INH SCH (12:00)
--- NOTE | 2018-05-13 19:21 | CP.PCM.PN ---
Subjective - Date & Time of Evaluation Date of Evaluation: 05/13/18 Time of Evaluation: 10:00 - Subjective Subjective: PGY1 Medicine progress note for Dr. Witt Pt was seen and examined at bedside. Pt is resting comfortably. Still reports lower extremity weakness which is chronic. He denies fever, chills, chest pain, sob, abdominal pain, n/v/d, headache, dizziness, focal weakness. Objective - Vital Signs/Intake and Output Vital Signs (last 24 hours): Temp Pulse Resp BP Pulse Ox 98 F 66 20 161/97 H 97 05/13/18 16:00 05/13/18 16:00 05/13/18 16:00 05/13/18 16:00 05/13/18 16:00 Intake and Output: 05/13/18 05/14/18 18:59 06:59 Intake Total 880 Balance 880 - Medications Medications: Current Medications Albuterol/Ipratropium (Duoneb 3 Mg/0.5 Mg (3 Ml) Ud) 3 ml INH RQ4 [facility] Last Admin: 05/13/18 16:27 Dose: Not Given Amlodipine Besylate (Norvasc) 5 mg PO DAILY [facility] Last Admin: 05/13/18 09:55 Dose: 5 mg Aspirin (Aspirin Chewable) 81 mg PO DAILY [facility] Last Admin: 05/13/18 09:55 Dose: 81 mg Famotidine (Pepcid) 20 mg PO DAILY [facility] Last Admin: 05/13/18 09:56 Dose: 20 mg Fluticasone/Vilanterol (Breo Ellipta 100-25 Mcg Inh) 1 puff INH RQD [facility] Last Admin: 05/13/18 12:00 Dose: 1 puff Heparin Sodium (Porcine) (Heparin) 5,000 units SC Q12 [facility] Last Admin: 05/13/18 09:55 Dose: 5,000 units Methylprednisolone (Solu-Medrol) 40 mg IVP Q8 [facility] Last Admin: 05/13/18 14:25 Dose: 40 mg Moxifloxacin HCl (Avelox) 400 mg PO DAILY [facility]; Protocol Last Admin: 05/13/18 10:11 Dose: 400 mg - Labs Labs: 05/13/18 07:11 05/13/18 07:11 - Additional Findings Additional findings: - Constitutional Appears: Non-toxic, no acute distress - Head Exam Head Exam: ATRAUMATIC, NORMOCEPHALIC - Eye Exam Eye Exam: EOMI, PERRL - ENT Exam ENT Exam: Mucous Membranes Moist, Normal Oropharynx - Neck Exam Neck exam: Positive for: Full Rom. Negative for: Tenderness, Thyromegaly - Respiratory Exam Respiratory Exam: Rhonchi absent: Wheezes, Chest Wall Tenderness, Respiratory Distress, Stridor - Cardiovascular Exam Cardiovascular Exam: REGULAR RHYTHM, +S1, +S2. absent: Gallop, Rubs, Systolic Murmur - GI/Abdominal Exam GI & Abdominal Exam: Normal Bowel Sounds, Soft. absent: Distended, Firm, Guarding, Hernia, Tenderness - Extremities Exam Extremities exam: Positive for: pedal pulses present. Negative for: calf tenderness, pedal edema - Back Exam Back exam: absent: CVA tenderness (L), CVA tenderness (R) - Neurological Exam Neurological exam: Alert, CN II-XII Intact, Oriented x3 - Psychiatric Exam Psychiatric exam: Normal Affect, Normal Mood - Skin Skin Exam: Dry, Intact, Warm Assessment and Plan - Assessment and Plan (Free Text) Assessment: 42 year old male with history of COPD, hypertension, schizophrenia who presents for worsening shortness of breath. Plan: Acute Dyspnea worse with exertion Hx of COPD Duonebs Q4 [facility] Breo ellipta Solumedrol 40mg IV Q8 reactive leukocytosis, Afebrile, no tachycardia proBNP 110 Troponin <0.0120 EKG: SR at 63 CXR: hyperinflated HIV, mycoplasma, legionella negative f/u ECHO reading hepatitis panel is negative Moxifloxacin 400 mg PO daily today f/u alpha antitrypsin, strep pneumo, pertussis Hx of hypertension Norvasc 5mg PO daily Schizophrenia Bipolar disorder Patient states he has not taken any medications, and does not want any at this time Currently oriented x3, admits to hearing his brother's thoughts after recent anniversary of his Denies SI/HI at this time. Denies auditory or visual hallucinations at this time. History of possible TIA ASA 81mg PO Lipid panel WNL, Hgb A1c is 5.7, TSH is low at 0.23, T4 is 9.91 Unsteady gait PT/OT UDS negative Prophylaxis: Heart healthy diet SCDs Pepcid 20mg PT recommendations Dispo: pending SW eval for rehab due to PT recs Case discussed with Dr. Witt
[2018-05-14] MEDS: Albuterol-Ipratrop 3 mg / 0.5 (3 ml) UD INH SCH ×4 (00:16→12:00)
[2018-05-14] MEDS ORDERED: Oxycodone/Acetaminophen 5/325 mg Tab PO STA (00:49)
[2018-05-14] MEDS: MethylPREDNISolone 40 mg Vial IVP SCH ×2 (06:02→14:07)
[2018-05-14 06:53] LABS: HEMOGLOBIN 13.1 g/dL (12.0-18.0); MEAN CELL VOLUME 92.2 fL (80.0-94.0); MEAN CORPUSCULAR HEMOGLOBIN 30.4 pg (27.0-31.0); MEAN CORPUSCULAR HGB CONC 32.9 g/dL (33.0-37.0); MEAN PLATELET VOLUME 10.1 fL (7.2-11.7); PLATELET COUNT 327 K/uL (130-400); RBC 4.33 Mil/uL (4.40-5.90); RED CELL DISTRIBUTION WIDTH 14.3 % (11.5-14.5); WHITE BLOOD COUNT 11.3 K/uL (4.8-10.8)
--- NOTE | 2018-05-14 07:03 | CP.PCM.PN ---
Subjective - Date & Time of Evaluation Date of Evaluation: 05/14/18 Time of Evaluation: 14:45 - Subjective Subjective: PGY1 Medicine progress note for Dr. Witt Pt was seen and examined at bedside. Pt is resting comfortably. He had some back pain overnight which was relieved with Toradol. He denies fever, chills, chest pain, sob, abdominal pain, n/v/d, headache, dizziness, focal weakness, bowel or bladder incontinence. Objective - Vital Signs/Intake and Output Vital Signs (last 24 hours): Temp Pulse Resp BP Pulse Ox 97.6 F 68 20 135/80 97 05/14/18 00:00 05/14/18 00:00 05/14/18 00:00 05/14/18 00:00 05/14/18 00:00 Intake and Output: 05/14/18 05/14/18 06:59 18:59 Intake Total 300 Balance 300 - Medications Medications: Current Medications Albuterol/Ipratropium (Duoneb 3 Mg/0.5 Mg (3 Ml) Ud) 3 ml INH RQ4 [facility] Last Admin: 05/14/18 04:16 Dose: Not Given Amlodipine Besylate (Norvasc) 5 mg PO DAILY [facility] Last Admin: 05/13/18 09:55 Dose: 5 mg Aspirin (Aspirin Chewable) 81 mg PO DAILY [facility] Last Admin: 05/13/18 09:55 Dose: 81 mg Famotidine (Pepcid) 20 mg PO DAILY [facility] Last Admin: 05/13/18 09:56 Dose: 20 mg Fluticasone/Vilanterol (Breo Ellipta 100-25 Mcg Inh) 1 puff INH RQD [facility] Last Admin: 05/13/18 12:00 Dose: 1 puff Heparin Sodium (Porcine) (Heparin) 5,000 units SC Q12 [facility] Last Admin: 05/13/18 21:38 Dose: 5,000 units Methylprednisolone (Solu-Medrol) 40 mg IVP Q8 [facility] Last Admin: 05/14/18 06:02 Dose: 40 mg Moxifloxacin HCl (Avelox) 400 mg PO DAILY [facility]; Protocol Last Admin: 05/13/18 10:11 Dose: 400 mg - Labs Labs: 05/14/18 06:46 05/13/18 07:11 - Additional Findings Additional findings: - Constitutional Appears: Non-toxic, no acute distress - Head Exam Head Exam: ATRAUMATIC, NORMOCEPHALIC - Eye Exam Eye Exam: EOMI, PERRL - ENT Exam ENT Exam: Mucous Membranes Moist, Normal Oropharynx - Neck Exam Neck exam: Positive for: Full Rom. Negative for: Tenderness, Thyromegaly - Respiratory Exam Respiratory Exam: Rhonchi absent: Wheezes, Chest Wall Tenderness, Respiratory Distress, Stridor - Cardiovascular Exam Cardiovascular Exam: REGULAR RHYTHM, +S1, +S2. absent: Gallop, Rubs, Systolic Murmur - GI/Abdominal Exam GI & Abdominal Exam: Normal Bowel Sounds, Soft. absent: Distended, Firm, Guarding, Hernia, Tenderness - Extremities Exam Extremities exam: Positive for: pedal pulses present. Negative for: calf tenderness, pedal edema - Back Exam Back exam: Hypertonic paravertebral lumbar muscles (left worse than right), absent: vertebral tenderness or step off. CVA tenderness (L), CVA tenderness (R). - Neurological Exam Neurological exam: Alert, CN II-XII Intact, Oriented x3 - Psychiatric Exam Psychiatric exam: Normal Affect, Normal Mood - Skin Skin Exam: Dry, Intact, Warm Assessment and Plan - Assessment and Plan (Free Text) Assessment: 42 year old male with history of COPD, hypertension, schizophrenia who presents for worsening shortness of breath. Plan: Acute Dyspnea worse with exertion Hx of COPD Duonebs Q4 [facility] Breo ellipta Solumedrol 40mg IV Q8 reactive leukocytosis, Afebrile, no tachycardia proBNP 110 Troponin <0.0120 EKG: SR at 63 CXR: hyperinflated HIV, mycoplasma, legionella negative Echocardiogram shows LVEF of 65-70%, normal size aortic root and IVC. Mild MR, TR, PI with normal pulmonary systolic pressures of 23 mm Hg. hepatitis panel is negative Moxifloxacin 400 mg PO daily for total of 5 days Hx of hypertension Norvasc 5mg PO daily Schizophrenia Bipolar disorder Patient states he has not taken any medications, and does not want any at this time Currently oriented x3, admits to hearing his brother's thoughts after recent anniversary of his Denies SI/HI at this time. Denies auditory or visual hallucinations at this time. History of possible TIA ASA 81mg PO Lipid panel WNL, Hgb A1c is 5.7, TSH is low at 0.23, T4 is 9.91 Unsteady gait PT/OT UDS negative Prophylaxis: Heart healthy diet SCDs Pepcid 20mg PT/OT Dispo: pending [facility] authorization Case discussed with Dr. Witt
[2018-05-14 07:31] LABS: ALB/GLOB RATIO 1.4 (1.0-2.1); ALT/SGPT 18 U/L (21-72); AST/SGOT 19 U/L (17-59); BLOOD UREA NITROGEN 25 mg/dL (9-20); CALCIUM 9.4 mg/dl (8.6-10.4); GFR NON-AFRICAN AMERICAN > 60
[2018-05-14] MEDS: Fluticasone-Vilanterol 100/25mcg Diskus INH SCH (07:40)
[2018-05-14 08:56] LABS: LYMPH # 0.5 K/uL (1.0-4.3); MONO # 0.1 K/uL (0.0-0.8)
[2018-05-14 08:57] LABS: LYMPHOCYTE 4 % (20-40); MONOCYTE 3 % (0-10); NEUTROPHIL 93 % (50-75); PLATELET ESTIMATE NORMAL (NORMAL); TOTAL CELLS COUNTED 100
--- NOTE | 2018-05-14 12:35 | CARD ---
APPROVED REPORT Date of service: 05/13/2018 EXAM: Two-dimensional and M-mode echocardiogram with Doppler and color Doppler. INDICATION Dyspnea COPD TIA RISK FACTORS Hypertension 2D DIMENSIONS IVSd0.8 (0.7-1.1cm)LVDd5.3 (3.9-5.9cm) PWd0.9 (0.7-1.1cm)LA Vrudon94 (18-58mL) LVDs3.4 (2.5-4.0cm)FS (%) 36.1 % LVEF (%)65.3 (>50%)LVEF (Cain's)67.54 % M-Mode DIMENSIONS Left Atrium (MM)3.10 (2.5-4.0cm)IVSd0.97 (0.7-1.1cm) Aortic Root3.81 (2.2-3.7cm)LVDd5.31 (4.0-5.6cm) Aortic Cusp Exc.2.35 (1.5-2.0cm)PWd0.97 (0.7-1.1cm) FS (%) 38 %LVDs3.32 (2.0-3.8cm) LVEF (%)67 (>50%) Mitral Valve MV E Ynrsqdfs86.6cm/sMV A Tlpdnosp55.2cm/sE/A ratio1.4 TDI Lateral E' Peak V14.22cm/sMedial E' Peak V8.80cm/sE/Lateral E'4.8 E/Medial E'7.8 Tricuspid Valve TR Peak Srjbouid953tu/sTR Peak Gr.[id number] <Conclusion> normqal size la,lv & ra rv. normal lv wall motion,thickness,systolic & diastolic function with lvef of 65-70%. normal aortic,mitral,tv & pv. mild mr,tr & pi with normal pulmonary systolic pressures of 23 mm of hg. no pericardial effusion. normal size aortic root & ivc.
[2018-05-14] MEDS ORDERED: Tramadol 25 mg PO ONE (14:45)
[2018-05-14 16:47] VITALS: BP 155/94; PULSE 68; TEMP 98; O2SAT 95
--- NOTE | 2018-05-14 17:18 | CP.PCM.DIS ---
Provider - Provider Date of Admission: 05/12/18 12:24 Attending physician: Ana Witt MD Consults: 05/13/18 12:10 Dough Cutter [Case Management Referral] Routine Comment: Physician Instructions: PT recs rehab. Please eval for placement. Reason For Exam: Reason for Referral: Discharge Planning Hospital Course - Lab Results Lab Results: Most Recent Lab Values WBC 11.3 K/uL (4.8-10.8) H 05/14/18 06:46 RBC 4.33 Mil/uL (4.40-5.90) L 05/14/18 06:46 Hgb 13.1 g/dL (12.0-18.0) 05/14/18 06:46 Hct 39.9 % (35.0-51.0) 05/14/18 06:46 MCV 92.2 fL (80.0-94.0) 05/14/18 06:46 MCH 30.4 pg (27.0-31.0) 05/14/18 06:46 MCHC 32.9 g/dL (33.0-37.0) L 05/14/18 06:46 RDW 14.3 % (11.5-14.5) 05/14/18 06:46 Plt Count 327 K/uL (130-400) 05/14/18 06:46 MPV 10.1 fL (7.2-11.7) 05/14/18 06:46 Neut % (Auto) 95.0 % (50.0-75.0) H 05/14/18 06:46 Lymph % (Auto) 4.0 % (20.0-40.0) L 05/14/18 06:46 [place] % (Auto) 1.0 % (0.0-10.0) 05/14/18 06:46 Eos % (Auto) 0.0 % (0.0-4.0) 05/14/18 06:46 Baso % (Auto) 0.0 % (0.0-2.0) 05/14/18 06:46 Neut # (Auto) 11.0 K/uL (1.8-7.0) H 05/14/18 06:46 Lymph # (Auto) 0.5 K/uL (1.0-4.3) L 05/14/18 06:46 [place] # (Auto) 0.1 K/uL (0.0-0.8) 05/14/18 06:46 Eos # (Auto) 0.0 K/uL (0.0-0.7) 05/14/18 06:46 Baso # (Auto) 0.0 K/uL (0.0-0.2) 05/14/18 06:46 Neutrophils % (Manual) 93 % (50-75) H 05/14/18 06:46 Band Neutrophils % 1 % (0-2) 05/12/18 07:10 Lymphocytes % (Manual) 4 % (20-40) L 05/14/18 06:46 Monocytes % (Manual) 3 % (0-10) 05/14/18 06:46 Platelet Estimate Normal (NORMAL) 05/14/18 06:46 Sodium 136 mmol/L (132-148) 05/14/18 06:46 Potassium 4.1 mmol/L (3.6-5.2) 05/14/18 06:46 Chloride 101 mmol/L (98-107) 05/14/18 06:46 Carbon Dioxide 25 mmol/L (22-30) 05/14/18 06:46 Anion Gap 14 (10-20) 05/14/18 06:46 BUN 25 mg/dL (9-20) H 05/14/18 06:46 Creatinine 0.7 mg/dL (0.8-1.5) L 05/14/18 06:46 Est GFR ( Amer) > 60 05/14/18 06:46 Est GFR (Non-Af Amer) > 60 05/14/18 06:46 Random Glucose 153 mg/dL (75-110) H 05/14/18 06:46 Hemoglobin A1c 5.7 % (4.2-6.5) 05/11/18 17:02 Calcium 9.4 mg/dl (8.6-10.4) 05/14/18 06:46 Phosphorus 3.5 mg/dL (2.5-4.5) 05/14/18 06:46 Magnesium 1.9 mg/dL (1.6-2.3) 05/14/18 06:46 Total Bilirubin 0.3 mg/dL (0.2-1.3) 05/14/18 06:46 AST 19 U/L (17-59) 05/14/18 06:46 ALT 18 U/L (21-72) L D 05/14/18 06:46 Alkaline Phosphatase 66 U/L (38-126) 05/14/18 06:46 Troponin I < 0.0120 ng/mL (0.00-0.120) 05/11/18 10:22 NT-Pro-B Natriuret Pep 110 pg/mL (0-450) 05/11/18 10:22 Total Protein 6.9 g/dL (6.3-8.3) 05/14/18 06:46 Albumin 4.0 g/dL (3.5-5.0) 05/14/18 06:46 Globulin 2.8 gm/dL (2.2-3.9) 05/14/18 06:46 Albumin/Globulin Ratio 1.4 (1.0-2.1) 05/14/18 06:46 Oaufu-9-Kuzozysfohk 212 mg/dL (83-199) H 05/11/18 17:02 Triglycerides 50 mg/dL (0-149) 05/11/18 17:02 Cholesterol 153 mg/dL (0-199) 05/11/18 17:02 LDL Cholesterol Direct 84 mg/dL (0-129) 05/11/18 17:02 HDL Cholesterol 60 mg/dL (30-70) 05/11/18 17:02 Vitamin B12 982 pg/mL (239-931) H 05/11/18 17:02 Folate 12.6 ng/mL 05/11/18 17:02 Thyroxine (T4) 9.91 ug/dL (5.5-11.0) 05/11/18 17:02 TSH 3rd Generation 0.23 mIU/L (0.46-4.68) L 05/11/18 17:02 Urine Opiates Screen Negative (NEGATIVE) 05/11/18 16:37 Urine Methadone Screen Negative (NEGATIVE) 05/11/18 16:37 Ur Barbiturates Screen Negative (NEGATIVE) 05/11/18 16:37 Ur Phencyclidine Scrn Negative (NEGATIVE) 05/11/18 16:37 Ur Amphetamines Screen Negative (NEGATIVE) 05/11/18 16:37 U Benzodiazepines Scrn Negative (NEGATIVE) 05/11/18 16:37 U Oth Cocaine Metabols Negative (NEGATIVE) 05/11/18 16:37 U Cannabinoids Screen Negative (NEGATIVE) 05/11/18 16:37 Hepatitis A IgM Ab Negative (NEGATIVE) 05/11/18 17:02 Hep Bs Antigen Negative (NEGATIVE) 05/11/18 17:02 Hep B Core IgM Ab Negative (NEGATIVE) 05/11/18 17:02 Hepatitis C Antibody Negative (NEGATIVE) 05/11/18 17:02 HIV 1&2 Antibody Screen Negative (NEGATIVE) 05/11/18 17:02 Ur L.pneumophila Ag Negative (NEGATIVE) 05/11/18 22:58 Mycoplasma pneumon IgM Negative (NEGATIVE) 05/11/18 17:02 Discharge Exam - Head Exam Head Exam: ATRAUMATIC, NORMOCEPHALIC Discharge Plan - Follow Up Plan Condition: STABLE Disposition: HOME/ ROUTINE Instructions: Shortness of Breath (Dyspnea) (DC), Exacerbation of COPD (DC)
== END 2018-05-14 19:53 | DRG 88 ==
LOC: C.ER 09:26 → C.9E 13:11 → UNDOADMOB 13:11 → C.9E 13:12 → C.3T 13:20 → INTOOBSV 05-12 12:24 → OBSVTOIN 05-12 12:24 → UNDODISIN 05-14 19:53
PROVIDERS: ADMIT Internal Medicine; ATTEND Internal Medicine
DX: J44.1 Chronic obstructive pulmonary disease with (acute) exacerbation (principal); F20.89 Other schizophrenia; F31.9 Bipolar disorder, unspecified; I10 Essential (primary) hypertension; R26.81 Unsteadiness on feet; V89.2XXS Person injured in unspecified motor-vehicle accident, traffic, sequela; Z87.01 Personal history of pneumonia (recurrent); Z87.891 Personal history of nicotine dependence; Z82.0 Family history of epilepsy and other diseases of the nervous system

== ENCOUNTER 2018-06-06 05:49 | Inpatient (IN) | payer MEDICAID ==
[2018-06-06 05:50] VITALS: BMI 18.8
[2018-06-06] MEDS ORDERED: Albuterol 0.083% Inhal Sol (2.5 mg/3 mL) UD IH STA ×3 (06:08→07:04)
[2018-06-06] MEDS ORDERED: Albuterol 0.083% Inhal Sol (2.5 mg/3 mL) UD ONE ×2 (06:20→07:22)
[2018-06-06 06:22] LABS: BASO % 0.8 % (0.0-2.0); EOS % 1.3 % (0.0-4.0); HEMOGLOBIN 12.8 g/dL (12.0-18.0); LYMPH # 2.2 K/uL (1.0-4.3); LYMPH % 63.1 % (20.0-40.0); MEAN CELL VOLUME 91.6 fL (80.0-94.0); MEAN CORPUSCULAR HEMOGLOBIN 30.9 pg (27.0-31.0); MEAN CORPUSCULAR HGB CONC 33.8 g/dL (33.0-37.0); MEAN PLATELET VOLUME 10.1 fL (7.2-11.7); MONO # 0.4 K/uL (0.0-0.8); MONO % 12.3 % (0.0-10.0); NEUT # 0.8 K/uL (1.8-7.0); NEUT % 22.5 % (50.0-75.0); NRBC % 0.1 % (0.0-2.0); RBC 4.12 Mil/uL (4.40-5.90); RED CELL DISTRIBUTION WIDTH 14.4 % (11.5-14.5); WHITE BLOOD COUNT 3.5 K/uL (4.8-10.8)
[2018-06-06 06:26] LABS: INR 1.1; PROTHROMBIN TIME 11.5 SECONDS (9.7-12.2)
--- NOTE | 2018-06-06 06:35 | C.PDOC ---
History Of Present Illness Patient BIBA for evaluation of SOB and wheezing. Patient has PMHx of COPD, states he was discharged from [facility] recently for similar symptoms (05/14/18). He reports feeling mildly improved when he was sent to subacute reha b, but states he has SOB chronically and it has been worsening in the past several days. He admits to nonproductive cough and chills, but denies chest pain, palpitations, abdominal pain, nausea/vomiting, diarrhea. Patient was given neb treatments and Soluemdrol 125mg IV in the field. Time Seen by Provider: 06/06/18 05:52 Chief Complaint (Nursing): Shortness Of Breath History Per: Patient, EMS History/Exam Limitations: no limitations Onset/Duration Of Symptoms: Days, Persistent Current Respiratory Medications: See Home Med List Severity: Moderate Past Medical History Reviewed: Historical Data, Nursing Documentation, Vital Signs Vital Signs: Last Vital Signs Temp 97.8 F 06/06/18 06:04 Pulse 62 06/06/18 06:04 Resp 20 06/06/18 06:04 BP 159/110 H 06/06/18 06:04 Pulse Ox 100 06/06/18 06:04 - Medical History PMH: Arthritis (BACK), Asthma, Bipolar Disorder, COPD, HTN, Pneumonia, Schizophrenia - [facility] Procedures INTRODUCTION OF ANTI-INFLAM INTO RESP TRACT, VIA OPENING (09/04/17) Family History: States: No Known Family Hx - Social History Hx Tobacco Use: Yes (2 packs a day) Hx Alcohol Use: No Hx Substance Use: No - Immunization History Hx Tetanus Toxoid Vaccination: Yes Hx Influenza Vaccination: Yes Hx Pneumococcal Vaccination: No Review Of Systems Constitutional: Positive for: Chills Cardiovascular: Negative for: Chest Pain, Palpitations Respiratory: Positive for: Cough, Shortness of Breath, Wheezing Gastrointestinal: Negative for: Nausea, Vomiting, Abdominal Pain, Diarrhea Skin: Negative for: Rash Neurological: Negative for: Weakness, Numbness Physical Exam - Physical Exam Appears: Well, Non-toxic, In Acute Distress (in mild respirstory distress, audibly wheezing, speaking in full sentences) Skin: Normal Color, Warm, Dry Head: Normacephalic Eye(s): bilateral: Normal Inspection Oral Mucosa: Moist Cardiovascular: Rhythm Regular Respiratory: Accessory Muscle Use (mild), No Rales, No Rhonchi, Wheezing (diffuse expiratory wheezing B/L ) Gastrointestinal/Abdominal: Normal Exam, Bowel Sounds, Soft, No Tenderness Extremity: No Pedal Edema, No Calf Tenderness Pulses: Left Dorsalis Pedis: Normal, Right Dorsalis Pedis: Normal Neurological/Psych: Oriented x3 ED Course And Treatment - Laboratory Results Result Diagrams: 06/06/18 06:16 06/06/18 06:16 Lab Results: PT 11.5 SECONDS (9.7-12.2) 06/06/18 06:16 INR 1.1 06/06/18 06:16 APTT 37 SECONDS (21-34) H 06/06/18 06:16 ECG: Interpreted By Me, Viewed By Me (sinus bradycardia 58 bpm, normal axis, Q waves aVL, V2, no acute ST/T wave changes) ECG Interpretation: No Acute Changes O2 Sat by Pulse Oximetry: 100 (NRB) Pulse Ox Interpretation: Normal - Radiology CXR: Interpreted by Me, Viewed By Me CXR Interpretation: Yes: No Acute Disease. No: Infiltrates Progress Note: Blood work, CXR, EKG ordered and reviewed. Patient placed on Vapotherm, given SC Terbutaline and albuterol neb treatments. Disposition - Disposition Forms: [employer] (Macedonian)
[2018-06-06 06:51] LABS: B-TYPE NATRIURETIC PEPTIDE 120 pg/mL (0-450)
[2018-06-06 07:01] LABS: ALB/GLOB RATIO 1.3 (1.0-2.1); ALBUMIN 3.8 g/dL (3.5-5.0); ALT/SGPT 14 U/L (21-72); AST/SGOT 17 U/L (17-59); BLOOD UREA NITROGEN 10 mg/dL (9-20); GFR NON-AFRICAN AMERICAN > 60
[2018-06-06] MEDS ORDERED: Albuterol-Ipratrop 3 mg / 0.5 (3 ml) UD INH STA (07:04)
[2018-06-06] MEDS ORDERED: Albuterol-Ipratrop 3 mg / 0.5 (3 ml) UD ONE ×2 (07:22→13:20)
[2018-06-06] MEDS ORDERED: MethylPREDNISolone 40 mg Vial IVP SCH (07:43)
--- NOTE | 2018-06-06 07:51 | CP.PCM.HP ---
History of Present Illness - History of Present Illness History of Present Illness: "im short of breath help me" 42M with a PMHx of COPD, HTN, schizophrenia, bipolar, possible TIApresents to the ED with SOB since he left [facility] a few days ago. He admits to nonproductive cough and chills, but denies chest pain, palpitations, abdominal pain, nausea/vomiting, diarrhea. Patient was given neb treatments and Soluemdrol 125 mg IV in the field. Pt reports he has been taking his home medications and complying with medical therapy after his discharge. Pt has not followed up in office however since his dc from [facility]. Pt denies any syncopal events. PMH: COPD, HTN, schizophrenia, bipolar, possible TIA PSH: chest tube for pleural effusions Home meds: unspecified. Gets medications from [facility] in [place]. Allergies: NKDA Social hx: former smoker, quit 1 month ago. Smoked >2ppd for 15 years. denies alcohol use. Used to smoke marijuana, denies drugs. Lives with his girlfriend. Family hx: Brother - , epilepsy. Mother and father: alive and healthy. Healthcare proxy: Girlfriend Jessica [phone] Full code Present on Admission - Present on Admission Any Indicators Present on Admission: No Review of Systems - Review of Systems All systems: reviewed and no additional remarkable complaints except (as per HPI) Past Patient History - Past Medical History & Family History Past Medical History?: Yes - Past Social History Smoking Status: Former Smoker - CARDIAC Hx Hypertension: Yes - PULMONARY Hx Asthma: Yes Hx Chronic Obstructive Pulmonary Disease (COPD): Yes Hx Pneumonia: Yes - NEUROLOGICAL Hx Neurological Disorder: No - HEENT Hx HEENT Problems: No - RENAL Hx Chronic Kidney Disease: No - ENDOCRINE/METABOLIC Hx Endocrine Disorders: No - HEMATOLOGICAL/ONCOLOGICAL Hx Human Immunodeficiency Virus (HIV): No - INTEGUMENTARY Hx Dermatological Problems: No - MUSCULOSKELETAL/RHEUMATOLOGICAL Hx Arthritis: Yes (BACK) - GASTROINTESTINAL Hx Gastrointestinal Disorders: No - GENITOURINARY/GYNECOLOGICAL Hx Genitourinary Disorders: No - PSYCHIATRIC Hx Bipolar Disorder: Yes Hx Schizophrenia: Yes Hx Substance Use: No - SURGICAL HISTORY Hx Surgeries: Yes Other/Comment: "chest tube from pneumonia" - ANESTHESIA Hx Anesthesia: No Hx Anesthesia Reactions: No Hx Malignant Hyperthermia: No Meds Allergies/Adverse Reactions: Allergies Allergy/AdvReac Type Severity Reaction Status Date / Time PORK Allergy Verified 06/06/18 11:30 onion AdvReac ITCHING Verified 06/06/18 09:00 pepper (genus Capsicum) AdvReac SWELLING Verified 06/06/18 09:00 Physical Exam - Additional Findings Additional findings: Appears: Well, Non-toxic, In Acute Distress (in mild respirstory distress, audibly wheezing, speaking in full sentences) Skin: Normal Color, Warm, Dry Head: Normacephalic Eye(s): bilateral: Normal Inspection Oral Mucosa: Moist Cardiovascular: Rhythm Regular Respiratory: Accessory Muscle Use (mild), No Rales, No Rhonchi, Wheezing (diffuse expiratory wheezing B/L ) Gastrointestinal/Abdominal: Normal Exam, Bowel Sounds, Soft, No Tenderness Extremity: No Pedal Edema, No Calf Tenderness Pulses: Left Dorsalis Pedis: Normal, Right Dorsalis Pedis: Normal Neurological/Psych: Oriented x3 Results - Vital Signs Recent Vital Signs: Last Vital Signs Temp 97.8 F 06/06/18 06:04 Pulse 62 06/06/18 07:23 Resp 22 06/06/18 07:28 BP 157/100 H 06/06/18 07:23 Pulse Ox 96 06/06/18 07:28 - Labs Result Diagrams: 06/06/18 06:16 06/06/18 06:16 Labs: Laboratory Results - last 24 hr 06/06/18 06/06/18 06/06/18 06:16 06:16 06:16 WBC 3.5 L D RBC 4.12 L Hgb 12.8 Hct 37.8 MCV 91.6 MCH 30.9 MCHC 33.8 RDW 14.4 Plt Count 191 D MPV 10.1 Neut % (Auto) 22.5 L Lymph % (Auto) 63.1 H [place] % (Auto) 12.3 H Eos % (Auto) 1.3 Baso % (Auto) 0.8 Neut # (Auto) 0.8 L Lymph # (Auto) 2.2 [place] # (Auto) 0.4 Eos # (Auto) 0.0 Baso # (Auto) 0.0 PT 11.5 INR 1.1 APTT 37 H Sodium 142 Potassium 3.7 Chloride 109 H Carbon Dioxide 25 Anion Gap 11 BUN 10 Creatinine 0.6 L Est GFR ( Amer) > 60 Est GFR (Non-Af Amer) > 60 Random Glucose 96 D Calcium 9.0 Total Bilirubin 0.5 AST 17 ALT 14 L D Alkaline Phosphatase 60 Total Creatine Kinase 80 CK-MB (Mass) 0.50 Troponin I < 0.0120 NT-Pro-B Natriuret Pep 120 Total Protein 6.7 Albumin 3.8 Globulin 2.9 Albumin/Globulin Ratio 1.3 Assessment & Plan - Assessment and Plan (Free Text) Assessment: 42 year old male with history of COPD, hypertension, schizophrenia who presents for worsening shortness of breath. Plan: Acute Dyspnea worse with exertion Hx of COPD In field: patient received Duoneb, Solumedrol [id number]. Duonebs Q4 TIFFANIE Breo ellipta Solumedrol 40mg IV Q12 proBNP 120 trop neg x1 EKG: SR at 63 CXR: hyperinflated No leukocytosis, afebrile Last Echo: 05/06 EF 65% Dr Saad Goldsmith consulted: f/u recs History of hypertension Norvasc 5mg PO daily Elevated today- monitor Schizophrenia Bipolar disorder Patient states he has not taken any medications since he has suicidal thoughts Currently orientedx3, admits to hearing his brother's thoughts after recent anniversary of his History of possible TIA ASA 81mg PO Unsteady gait PT/OT Follow up Urine drug screen Prophylaxis: Heart healthy diet SCDs Pepcid 20mg
[2018-06-06] MEDS: Albuterol-Ipratrop 3 mg / 0.5 (3 ml) UD INH SCH ×4 (07:55→19:54)
--- NOTE | 2018-06-06 08:49 | RAD ---
Date of service: 06/06/2018 HISTORY: SOB COMPARISON: Comparison chest 05/11/2018 FINDINGS: LUNGS: No active pulmonary disease. PLEURA: No significant pleural effusion identified, no pneumothorax apparent. CARDIOVASCULAR: No aortic atherosclerotic calcification present. Normal cardiac size. No pulmonary vascular congestion. OSSEOUS STRUCTURES: No significant abnormalities. VISUALIZED UPPER ABDOMEN: Normal. OTHER FINDINGS: None. IMPRESSION: No active disease.
[2018-06-06] MEDS ORDERED: MethylPREDNISolone 40 mg Vial ONE (09:51)
[2018-06-06] MEDS: Fluticasone-Vilanterol 100/25mcg Diskus INH SCH (10:26)
--- NOTE | 2018-06-06 15:24 | CP.PCM.CON ---
History of Present Illness - History of Present Illness History of Present Illness: Reason for consultation: Shortness of breath 42-year-old male with history of COPD, hypertension, bipolar disorder, TIA who presented to emergency room complaining of shortness of breath associated with nonproductive cough and chills. Patient denies chest pain, denies nausea vomiting, denies diarrhea and constipation. Patient states that he was treated for COPD at [facility] and was later transferred to subacute where his c ondition got worse. Patient also complains that he lives on the third floor and has difficulty going up a flight of stairs because of COPD PMH: COPD, HTN, schizophrenia, bipolar, possible TIA PSH: chest tube for pleural effusions Home meds: unspecified. Gets medications from [facility] in [place]. Allergies: NKDA Social hx: former smoker, quit 1 month ago. Smoked >2ppd for 15 years. denies alcohol use. Used to smoke marijuana, denies drugs. Lives with his girlfriend. Family hx: Brother - , epilepsy. Mother and father: alive and healthy. Review of Systems - Review of Systems All systems: reviewed and no additional remarkable complaints except (Shortness of breath and cough) Past Patient History - Past Medical History & Family History Past Medical History?: Yes - Past Social History Smoking Status: Former Smoker - CARDIAC Hx Hypertension: Yes - PULMONARY Hx Asthma: Yes Hx Chronic Obstructive Pulmonary Disease (COPD): Yes Hx Pneumonia: Yes - NEUROLOGICAL Hx Neurological Disorder: No - HEENT Hx HEENT Problems: No - RENAL Hx Chronic Kidney Disease: No - ENDOCRINE/METABOLIC Hx Endocrine Disorders: No - HEMATOLOGICAL/ONCOLOGICAL Hx Human Immunodeficiency Virus (HIV): No - INTEGUMENTARY Hx Dermatological Problems: No - MUSCULOSKELETAL/RHEUMATOLOGICAL Hx Arthritis: Yes (BACK) - GASTROINTESTINAL Hx Gastrointestinal Disorders: No - GENITOURINARY/GYNECOLOGICAL Hx Genitourinary Disorders: No - PSYCHIATRIC Hx Bipolar Disorder: Yes Hx Schizophrenia: Yes Hx Substance Use: No - SURGICAL HISTORY Hx Surgeries: Yes Other/Comment: "chest tube from pneumonia" - ANESTHESIA Hx Anesthesia: No Hx Anesthesia Reactions: No Hx Malignant Hyperthermia: No Meds Allergies/Adverse Reactions: Allergies Allergy/AdvReac Type Severity Reaction Status Date / Time PORK Allergy Verified 06/06/18 11:30 onion AdvReac ITCHING Verified 06/06/18 09:00 pepper (genus Capsicum) AdvReac SWELLING Verified 06/06/18 09:00 - Medications Medications: Current Medications Acetaminophen (Tylenol 325mg Tab) 650 mg PO Q6 PRN PRN Reason: Pain, moderate (4-7) Albuterol/Ipratropium (Duoneb 3 Mg/0.5 Mg (3 Ml) Ud) 3 ml INH RQ4 [facility] Last Admin: 06/06/18 13:39 Dose: 3 ml Amlodipine Besylate (Norvasc) 5 mg PO DAILY [facility] Last Admin: 06/06/18 09:52 Dose: 5 mg Aspirin (Aspirin Chewable) 81 mg PO DAILY [facility] Last Admin: 06/06/18 09:52 Dose: 81 mg Benzonatate (Tessalon Perles) 100 mg PO DAILY [facility] Last Admin: 06/06/18 10:43 Dose: 100 mg Famotidine (Pepcid) 20 mg PO DAILY [facility] Last Admin: 06/06/18 09:52 Dose: 20 mg Fluticasone/Vilanterol (Breo Ellipta 100-25 Mcg Inh) 1 puff INH RQD [facility] Last Admin: 06/06/18 10:26 Dose: 1 puff Losartan Potassium (Cozaar) 100 mg PO ONCE ONE Stop: 06/06/18 15:16 Methylprednisolone (Solu-Medrol) 40 mg IVP Q12 [facility] Physical Exam - Head Exam Head Exam: ATRAUMATIC, NORMOCEPHALIC - ENT Exam ENT Exam: Mucous Membranes Moist - Neck Exam Neck exam: Positive for: Normal Inspection - Respiratory Exam Respiratory Exam: Rhonchi, Wheezes - Cardiovascular Exam Cardiovascular Exam: REGULAR RHYTHM - GI/Abdominal Exam GI & Abdominal Exam: Normal Bowel Sounds, Soft - Extremities Exam Extremities exam: Positive for: normal inspection - Neurological Exam Neurological exam: Alert, Oriented x3 Results - Vital Signs Recent Vital Signs: Last Vital Signs Temp 98.1 F 06/06/18 14:10 Pulse 76 06/06/18 14:10 Resp 18 06/06/18 14:10 BP 179/107 H 06/06/18 14:10 Pulse Ox 98 06/06/18 14:10 - Labs Result Diagrams: 06/06/18 06:16 06/06/18 06:16 Labs: Laboratory Results - last 24 hr 06/06/18 06/06/18 06/06/18 06:16 06:16 06:16 WBC 3.5 L D RBC 4.12 L Hgb 12.8 Hct 37.8 MCV 91.6 MCH 30.9 MCHC 33.8 RDW 14.4 Plt Count 191 D MPV 10.1 Neut % (Auto) 22.5 L Lymph % (Auto) 63.1 H [place] % (Auto) 12.3 H Eos % (Auto) 1.3 Baso % (Auto) 0.8 Neut # (Auto) 0.8 L Lymph # (Auto) 2.2 [place] # (Auto) 0.4 Eos # (Auto) 0.0 Baso # (Auto) 0.0 PT 11.5 INR 1.1 APTT 37 H Sodium 142 Potassium 3.7 Chloride 109 H Carbon Dioxide 25 Anion Gap 11 BUN 10 Creatinine 0.6 L Est GFR ( Amer) > 60 Est GFR (Non-Af Amer) > 60 Random Glucose 96 D Calcium 9.0 Total Bilirubin 0.5 AST 17 ALT 14 L D Alkaline Phosphatase 60 Total Creatine Kinase 80 CK-MB (Mass) 0.50 Troponin I < 0.0120 NT-Pro-B Natriuret Pep 120 Total Protein 6.7 Albumin 3.8 Globulin 2.9 Albumin/Globulin Ratio 1.3 Assessment & Plan (1) COPD exacerbation Assessment and Plan: Continue with IV steroids and nebulizer treatment Consider Laba and lama combination Pulmonary function test as outpatient Physical therapy Follow-up ABG and chest x-ray Status: Acute
[2018-06-06] MEDS: MethylPREDNISolone 40 mg Vial IVP SCH (21:03)
[2018-06-07] MEDS: Albuterol-Ipratrop 3 mg / 0.5 (3 ml) UD INH SCH ×4 (03:11→16:31)
[2018-06-07 07:35] LABS: BASO % 0.3 % (0.0-2.0); HEMOGLOBIN 12.4 g/dL (12.0-18.0); LYMPH # 1.1 K/uL (1.0-4.3); LYMPH % 9.2 % (20.0-40.0); MEAN CELL VOLUME 91.4 fL (80.0-94.0); MEAN CORPUSCULAR HGB CONC 33.9 g/dL (33.0-37.0); MEAN PLATELET VOLUME 10.7 fL (7.2-11.7); MONO # 0.6 K/uL (0.0-0.8); MONO % 4.7 % (0.0-10.0); NEUT # 10.6 K/uL (1.8-7.0); NEUT % 85.8 % (50.0-75.0); NRBC % 0.1 % (0.0-2.0); PLATELET COUNT 259 K/uL (130-400); RED CELL DISTRIBUTION WIDTH 14.7 % (11.5-14.5)
[2018-06-07] MEDS: Fluticasone-Vilanterol 100/25mcg Diskus INH SCH (07:45)
[2018-06-07 07:46] LABS: WHITE BLOOD COUNT 12.3 K/uL (4.8-10.8)
[2018-06-07 08:04] LABS: ALB/GLOB RATIO 1.4 (1.0-2.1); ALBUMIN 4.1 g/dL (3.5-5.0); ALT/SGPT 7 U/L (21-72); AST/SGOT 23 U/L (17-59); BLOOD UREA NITROGEN 11 mg/dL (9-20); CALCIUM 9.7 mg/dl (8.6-10.4); GFR NON-AFRICAN AMERICAN > 60
[2018-06-07] MEDS: MethylPREDNISolone 40 mg Vial IVP SCH ×2 (10:09→21:56)
[2018-06-07 10:51] LABS: BANDS 9 % (0-2); LYMPHOCYTE 7 % (20-40); MONOCYTE 4 % (0-10); NEUTROPHIL 80 % (50-75); PLATELET ESTIMATE NORMAL (NORMAL); TOTAL CELLS COUNTED 100
[2018-06-07 10:52] LABS: ANISOCYTOSIS SLIGHT; GIANT PLATELETS PRESENT; HYPOCHROMIC SLIGHT; LARGE PLATELETS PRESENT; POLYCHROMIC SLIGHT; TOXIC GRANULATION PRESENT
--- NOTE | 2018-06-07 18:29 | CP.PCM.PN ---
Subjective - Date & Time of Evaluation Date of Evaluation: 06/07/18 Time of Evaluation: 18:27 - Subjective Subjective: Medicine Progress Note - Dr Jose's service Patient seen and examined at bedside. Per nursing no acute events overnight. Patient is upset because he wants to shower however gait is unsteady. Advised patient that he will need PT to evaluate him first. SOB improving. Offers no other complaints at this time. Objective - Vital Signs/Intake and Output Vital Signs (last 24 hours): Temp Pulse Resp BP Pulse Ox 98.0 F 67 20 162/88 H 97 06/07/18 15:00 06/07/18 16:01 06/07/18 15:00 06/07/18 15:00 06/07/18 18:00 Intake and Output: 06/07/18 06/07/18 06:59 18:59 Intake Total 400 Output Total 250 Balance 150 - Medications Medications: Current Medications Acetaminophen (Tylenol 325mg Tab) 650 mg PO Q6 PRN PRN Reason: Pain, moderate (4-7) Albuterol/Ipratropium (Duoneb 3 Mg/0.5 Mg (3 Ml) Ud) 3 ml INH RQ4 [facility] Last Admin: 06/07/18 16:31 Dose: Not Given Amlodipine Besylate (Norvasc) 5 mg PO DAILY [facility] Last Admin: 06/07/18 10:08 Dose: 5 mg Aspirin (Aspirin Chewable) 81 mg PO DAILY [facility] Last Admin: 06/07/18 10:09 Dose: 81 mg Benzonatate (Tessalon Perles) 100 mg PO DAILY [facility] Last Admin: 06/07/18 10:09 Dose: 100 mg Famotidine (Pepcid) 20 mg PO DAILY [facility] Last Admin: 06/07/18 10:09 Dose: 20 mg Fluticasone/Vilanterol (Breo Ellipta 100-25 Mcg Inh) 1 puff INH RQD [facility] Last Admin: 06/07/18 07:45 Dose: 1 puff Heparin Sodium (Porcine) (Heparin) 5,000 units SC Q12 [facility] Last Admin: 06/07/18 10:09 Dose: Not Given Methylprednisolone (Solu-Medrol) 40 mg IVP Q12 [facility] Last Admin: 06/07/18 10:09 Dose: 40 mg - Labs Labs: 06/07/18 07:06/07/18 07:22 PT 11.5 SECONDS (9.7-12.2) 06/06/18 06:16 INR 1.1 06/06/18 06:16 APTT 37 SECONDS (21-34) H 06/06/18 06:16 - Constitutional Appears: Non-toxic, No Acute Distress, Older Than Stated Age, Chronically Ill - Head Exam Head Exam: ATRAUMATIC, NORMAL INSPECTION - Eye Exam Eye Exam: EOMI, Normal appearance - ENT Exam ENT Exam: Mucous Membranes Moist - Respiratory Exam Respiratory Exam: Decreased Breath Sounds, Wheezes, NORMAL BREATHING PATTERN. absent: Rales - Cardiovascular Exam Cardiovascular Exam: REGULAR RHYTHM, +S1, +S2 - GI/Abdominal Exam GI & Abdominal Exam: Soft. absent: Guarding, Rigid, Tenderness - Extremities Exam Extremities Exam: Normal Inspection. absent: Calf Tenderness - Neurological Exam Neurological Exam: Alert, Awake, Oriented x3 - Psychiatric Exam Psychiatric exam: Agitated Assessment and Plan - Assessment and Plan (Free Text) Assessment: 42 year old male with history of COPD, hypertension, schizophrenia who presents for worsening shortness of breath. Plan: Acute Dyspnea worse with exertion Hx of COPD -Stable, afebrile -Prior to arrival patient received Duoneb, Solumedrol [id number]. -Continue Duonebs Q4 TIFFANIE -Continue Breo ellipta -Solumedrol 40mg IV Q12 -CXR: hyperinflated -Last Echo: 05/06 EF 65% -Pulmonology, Dr Nash, help appreciated History of hypertension -Continue Norvasc 5mg PO daily Schizophrenia Bipolar disorder Patient states he has not taken any medications since he has suicidal thoughts Currently orientedx3, admits to hearing his brother's thoughts after recent anniversary of his History of possible TIA -ASA 81mg PO Unsteady gait -PT/OT -Follow up Urine drug screen Prophylaxis: -Pepcid 20mg -Heparin 5000 Q12H SC Plan discussed with Dr Rebeca Crabtree DO PGY-2
[2018-06-08] MEDS: Albuterol-Ipratrop 3 mg / 0.5 (3 ml) UD INH PRN ×3 (02:12→12:45)
[2018-06-08] MEDS: Fluticasone-Vilanterol 100/25mcg Diskus INH SCH (07:55)
[2018-06-08 08:38] LABS: BASO % 0.2 % (0.0-2.0); LYMPH % 10.3 % (20.0-40.0); MEAN CELL VOLUME 91.1 fL (80.0-94.0); MEAN CORPUSCULAR HEMOGLOBIN 31.6 pg (27.0-31.0); MEAN CORPUSCULAR HGB CONC 34.7 g/dL (33.0-37.0); MEAN PLATELET VOLUME 10.2 fL (7.2-11.7); MONO # 0.5 K/uL (0.0-0.8); MONO % 5.1 % (0.0-10.0); NEUT # 8.3 K/uL (1.8-7.0); NEUT % 84.4 % (50.0-75.0); RBC 4.43 Mil/uL (4.40-5.90); RED CELL DISTRIBUTION WIDTH 14.9 % (11.5-14.5); WHITE BLOOD COUNT 9.8 K/uL (4.8-10.8)
[2018-06-08 09:08] LABS: ALB/GLOB RATIO 1.4 (1.0-2.1); ALBUMIN 4.4 g/dL (3.5-5.0); ALT/SGPT 9 U/L (21-72); AST/SGOT 14 U/L (17-59); BLOOD UREA NITROGEN 16 mg/dL (9-20); CALCIUM 10.1 mg/dl (8.6-10.4); GFR NON-AFRICAN AMERICAN > 60
[2018-06-08] MEDS: MethylPREDNISolone 40 mg Vial IVP SCH ×2 (10:13→21:04)
--- NOTE | 2018-06-08 13:19 | CP.PCM.PN ---
Subjective - Date & Time of Evaluation Date of Evaluation: 06/08/18 Time of Evaluation: 13:19 - Subjective Subjective: Pulmonary follow up, Covering Dr Nash The Patient was seen and examined at the bedside, Medical records reviewed, and management issues were discussed and formulated with the house staff. Events reviewed Objective - Vital Signs/Intake and Output Vital Signs (last 24 hours): Temp Pulse Resp BP Pulse Ox 97.8 F 62 18 151/98 H 98 06/08/18 07:22 06/08/18 11:45 06/08/18 07:22 06/08/18 10:12 06/08/18 12:00 Intake and Output: 06/08/18 06/08/18 06:59 18:59 Intake Total 740 Output Total 600 Balance 140 - Medications Medications: Current Medications Acetaminophen (Tylenol 325mg Tab) 650 mg PO Q6 PRN PRN Reason: Pain, moderate (4-7) Albuterol/Ipratropium (Duoneb 3 Mg/0.5 Mg (3 Ml) Ud) 3 ml INH RQ4 PRN PRN Reason: Shortness of Breath Last Admin: 06/08/18 07:55 Dose: 3 ml Amlodipine Besylate (Norvasc) 10 mg PO DAILY [facility] Last Admin: 06/08/18 10:13 Dose: 10 mg Aspirin (Aspirin Chewable) 81 mg PO DAILY [facility] Last Admin: 06/08/18 10:13 Dose: 81 mg Benzonatate (Tessalon Perles) 100 mg PO DAILY [facility] Last Admin: 06/08/18 10:13 Dose: 100 mg Famotidine (Pepcid) 20 mg PO DAILY [facility] Last Admin: 06/08/18 10:13 Dose: 20 mg Fluticasone/Vilanterol (Breo Ellipta 100-25 Mcg Inh) 1 puff INH RQD [facility] Last Admin: 06/08/18 07:55 Dose: 1 puff Heparin Sodium (Porcine) (Heparin) 5,000 units SC Q12 [facility] Last Admin: 06/08/18 10:14 Dose: Not Given Methylprednisolone (Solu-Medrol) 40 mg IVP Q12 [facility] Last Admin: 06/08/18 10:13 Dose: 40 mg - Labs Labs: 06/08/18 08:26 06/08/18 08:26 PT 11.5 SECONDS (9.7-12.2) 06/06/18 06:16 INR 1.1 06/06/18 06:16 APTT 37 SECONDS (21-34) H 06/06/18 06:16
--- NOTE | 2018-06-08 14:12 | CP.PCM.PN ---
Subjective - Date & Time of Evaluation Date of Evaluation: 06/08/18 Time of Evaluation: 14:11 - Subjective Subjective: Medicine Progress Note - Dr Jose's service Patient seen and examined at bedside. Per nursing no acute events overnight. Patient still reports feeling shortness of breath and decreased appetite. Offers no other complaints at this time. Objective - Vital Signs/Intake and Output Vital Signs (last 24 hours): Temp Pulse Resp BP Pulse Ox 97.8 F 62 18 151/98 H 98 06/08/18 07:22 06/08/18 11:45 06/08/18 07:22 06/08/18 10:12 06/08/18 12:00 Intake and Output: 06/08/18 06/08/18 06:59 18:59 Intake Total 740 Output Total 600 Balance 140 - Medications Medications: Current Medications Acetaminophen (Tylenol 325mg Tab) 650 mg PO Q6 PRN PRN Reason: Pain, moderate (4-7) Albuterol/Ipratropium (Duoneb 3 Mg/0.5 Mg (3 Ml) Ud) 3 ml INH RQ4 PRN PRN Reason: Shortness of Breath Last Admin: 06/08/18 07:55 Dose: 3 ml Amlodipine Besylate (Norvasc) 10 mg PO DAILY [facility] Last Admin: 06/08/18 10:13 Dose: 10 mg Aspirin (Aspirin Chewable) 81 mg PO DAILY [facility] Last Admin: 06/08/18 10:13 Dose: 81 mg Benzonatate (Tessalon Perles) 100 mg PO DAILY [facility] Last Admin: 06/08/18 10:13 Dose: 100 mg Famotidine (Pepcid) 20 mg PO DAILY [facility] Last Admin: 06/08/18 10:13 Dose: 20 mg Fluticasone/Vilanterol (Breo Ellipta 100-25 Mcg Inh) 1 puff INH RQD [facility] Last Admin: 06/08/18 07:55 Dose: 1 puff Heparin Sodium (Porcine) (Heparin) 5,000 units SC Q12 [facility] Last Admin: 06/08/18 10:14 Dose: Not Given Methylprednisolone (Solu-Medrol) 40 mg IVP Q12 [facility] Last Admin: 06/08/18 10:13 Dose: 40 mg - Labs Labs: 06/08/18 08:26 06/08/18 08:26 PT 11.5 SECONDS (9.7-12.2) 06/06/18 06:16 INR 1.1 06/06/18 06:16 APTT 37 SECONDS (21-34) H 06/06/18 06:16 - Additional Findings Additional findings: - Constitutional Appears: Non-toxic, No Acute Distress, Older Than Stated Age, Chronically Ill - Head Exam Head Exam: ATRAUMATIC, NORMAL INSPECTION - Eye Exam Eye Exam: EOMI, Normal appearance - ENT Exam ENT Exam: Mucous Membranes Moist - Respiratory Exam Respiratory Exam: Decreased Breath Sounds, Wheezes, NORMAL BREATHING PATTERN. absent: Rales - Cardiovascular Exam Cardiovascular Exam: REGULAR RHYTHM, +S1, +S2 - GI/Abdominal Exam GI & Abdominal Exam: Soft. absent: Guarding, Rigid, Tenderness - Extremities Exam Extremities Exam: Normal Inspection. absent: Calf Tenderness - Neurological Exam Neurological Exam: Alert, Awake, Oriented x3 - Psychiatric Exam Psychiatric exam: Agitated Assessment and Plan - Assessment and Plan (Free Text) Assessment: 42 year old male with history of COPD, hypertension, schizophrenia who presents for worsening shortness of breath. Plan: Acute Dyspnea worse with exertion Hx of COPD -Stable, afebrile -Prior to arrival patient received Duoneb, Solumedrol [id number]. -Continue Duonebs Q4 [facility] -Continue Breo ellipta -Solumedrol 40mg IV Q12 -CXR: hyperinflated -Last Echo: 05/06 EF 65% -Pulmonology, Dr Nash, help appreciated History of hypertension -Increased Norvasc 10mg PO daily Schizophrenia Bipolar disorder Patient states he has not taken any medications since he has suicidal thoughts Currently orientedx3, admits to hearing his brother's thoughts after recent anniversary of his History of possible TIA -ASA 81mg PO Unsteady gait -PT/OT -Follow up Urine drug screen Prophylaxis: -Pepcid 20mg -Heparin 5000 Q12H SC DISPO: Patient to be discharged to [facility] once medically stable. Case management r stacia gaspar. Plan discussed with Dr Rebeca Crabtree DO PGY-2
[2018-06-08 16:42] VITALS: RESP 20
[2018-06-09] MEDS: Albuterol-Ipratrop 3 mg / 0.5 (3 ml) UD INH PRN (02:33)
[2018-06-09 08:11] LABS: BASO % 0.5 % (0.0-2.0); HEMOGLOBIN 14.9 g/dL (12.0-18.0); LYMPH # 1.2 K/uL (1.0-4.3); LYMPH % 12.7 % (20.0-40.0); MEAN CELL VOLUME 91.5 fL (80.0-94.0); MEAN CORPUSCULAR HEMOGLOBIN 31.1 pg (27.0-31.0); MEAN PLATELET VOLUME 9.9 fL (7.2-11.7); MONO # 0.6 K/uL (0.0-0.8); MONO % 6.8 % (0.0-10.0); NEUT # 7.3 K/uL (1.8-7.0); NRBC % 0.1 % (0.0-2.0); RBC 4.78 Mil/uL (4.40-5.90); RED CELL DISTRIBUTION WIDTH 15.2 % (11.5-14.5); WHITE BLOOD COUNT 9.1 K/uL (4.8-10.8)
[2018-06-09 08:16] LABS: ALB/GLOB RATIO 1.9 (1.0-2.1); ALBUMIN 4.7 g/dL (3.5-5.0); ALT/SGPT 13 U/L (21-72); AST/SGOT 12 U/L (17-59); BLOOD UREA NITROGEN 18 mg/dL (9-20); CALCIUM 10.6 mg/dl (8.6-10.4); GFR NON-AFRICAN AMERICAN > 60
[2018-06-09 08:48] LABS: HEPATITIS B SURFACE AG Negative (NEGATIVE)
[2018-06-09 08:54] LABS: HEPATITIS A IGM NEGATIVE (NEGATIVE); HEPATITIS B CORE AB NEGATIVE (NEGATIVE)
[2018-06-09 09:06] LABS: HEPATITIS C ANTIBODY NEGATIVE (NEGATIVE)
[2018-06-09] MEDS: MethylPREDNISolone 40 mg Vial IVP SCH ×2 (10:58→21:47)
[2018-06-09] MEDS: Fluticasone-Vilanterol 100/25mcg Diskus INH SCH (11:13)
--- NOTE | 2018-06-09 13:53 | PCM.PSYCH ---
Initial Psychiatric Evaluation - Initial Psychiatric Evaluation History of Present Illness and Precipitating Events: PGY-[address] Psych consult note for Dr Estrada Patient is a 42 year old male with psychiatric hx of bipolar disorder and schizophrenia admitted to the hospital for shortness of breath/COPD exarcerbatioon. Psych consult placed for evaluation of history of bipolar disorder. Patient states he has never seen by a psychiatrist for bipolar disorder or schizophrenia. Patient says his brother at early age when patient was 15 years old, and since then, he has been hearing his voice. Patient admits to waking up at nights and calling brother's name, as well as sweating profusely in the middle of the night. Patient has taken seroquel and remeron in the past, given by his PMD, however, states the medication worsened his symptoms and ultimately stopped taking medications. Patient does not recall the last time he took medications. Patient mentions he attempted suicides 3 times in the past, last time being two years ago when he tried to jump off a bridge. Patient denies SI or HI at this time, state he has a good support group including certain family members and his significant other. Patient states feeling depressed, however, has been feeling better since moving to this [place]. Psych hx: bipolar disorder, schizophrenia Past Med history: COPD, HTN, possible TIA Current Medications: Active Medications Generic Name Dose Route Start Last Admin Trade Name Freq PRN Reason Stop Dose Admin Acetaminophen 650 mg 06/06/18 07:55 Tylenol 325mg Tab PO Q6 PRN Pain, moderate (4-7) Albuterol/Ipratropium 3 ml 06/07/18 18:33 06/09/18 02:33 Duoneb 3 Mg/0.5 Mg (3 Ml) Ud INH 3 ml RQ4 PRN Administration Shortness of Breath Amlodipine Besylate 10 mg 06/08/18 08:57 06/09/18 10:57 Norvasc PO 10 mg DAILY [facility] Administration Aspirin 81 mg 06/06/18 10:00 06/09/18 10:58 Aspirin Chewable PO 81 mg DAILY [facility] Administration Benzonatate 100 mg 06/06/18 10:00 06/09/18 10:57 Tessalon Perles PO 100 mg DAILY [facility] Administration Famotidine 20 mg 06/06/18 10:00 06/09/18 10:57 Pepcid PO 20 mg DAILY [facility] Administration Fluticasone/Vilanterol 1 puff 06/06/18 08:00 06/09/18 11:13 Breo Ellipta 100-25 Mcg Inh INH 1 puff RQD [facility] Administration Heparin Sodium (Porcine) 5,000 units 06/07/18 10:00 06/09/18 10:59 Heparin SC Not Given Q12 [facility] Methylprednisolone 40 mg 06/06/18 22:00 06/09/18 10:58 Solu-Medrol IVP 40 mg Q12 [facility] Administration Past Psychiatric History - Past Psychiatric History Pertinent Medical Hx (Current Medical&Sleep Prob, Allergies): Allergies Allergy/AdvReac Type Severity Reaction Status Date / Time PORK Allergy Verified 06/06/18 11:30 onion AdvReac ITCHING Verified 06/06/18 09:00 pepper (genus Capsicum) AdvReac SWELLING Verified 06/06/18 09:00 Home Med 1 unit PO DAILY 06/06/18 Review of Systems - Psychiatric Psychiatric: Anxiety, Auditory Hallucinations, Depression. absent: Hallucinations, Homicidal Ideation, Memory Loss, Suicidal Ideation, Visual Hallucinations, Tactile Hallucinations Mental Status Examination - Personal Presentation Personal Presentation: Looks stated age - Motor Activity Motor Activity: Calm - Reliability in Providing Information Reliability in Providing Information: Good - Speech Speech: Organized - Mood Mood: Depressed - Formal Thought Process Formal Thought Process: No Impairment - Cognitive Functions Orientation: Person, Place, Situation, Time Sensorium: Alert Attention/Concentration: Attentive Abstract Thinking: [place] Judgement: Intact, as evidence by: Other Memory: Remote intact, as evidenced by: Abilit to recall sig. life events - Risk Risk: Falls - Strength & Assets Inventory Strength & Assets Inventory: Family support, Cooperative DSM 5 DX - DSM 5 DSM 5 Diagnosis: Major depression recurrent, moderate PTSD - Recommended/Plan of Treatment Treatment Recommendations and Plan of Treatment: lexapro 5mg PO QD Trazodone 50mg PO HS Support given, psycho-education provided. After care discussed. Plan d/w with Dr Natalie Carias, PGY-1
--- NOTE | 2018-06-09 15:37 | CP.PCM.PN ---
Subjective - Date & Time of Evaluation Date of Evaluation: 06/09/18 Time of Evaluation: 15:30 - Subjective Subjective: Medicine Progress Note for Dr. Jose's service S/E at bedside. Offers no acute complaints. Wants to be discharged to a specific [facility] was only request. Denies fevers, chills, chest pain, sob, n/v, constipation or diarrhea, and dysuria. Objective - Vital Signs/Intake and Output Vital Signs (last 24 hours): Temp Pulse Resp BP Pulse Ox 97.5 F L 60 20 152/91 H 99 06/09/18 09:12 06/09/18 12:06 06/09/18 09:12 06/09/18 10:56 06/09/18 09:12 Intake and Output: 06/09/18 06/09/18 06:59 18:59 Intake Total 1000 Balance 1000 - Medications Medications: Current Medications Acetaminophen (Tylenol 325mg Tab) 650 mg PO Q6 PRN PRN Reason: Pain, moderate (4-7) Albuterol/Ipratropium (Duoneb 3 Mg/0.5 Mg (3 Ml) Ud) 3 ml INH RQ4 PRN PRN Reason: Shortness of Breath Last Admin: 06/09/18 02:33 Dose: 3 ml Amlodipine Besylate (Norvasc) 10 mg PO DAILY [facility] Last Admin: 06/09/18 10:57 Dose: 10 mg Aspirin (Aspirin Chewable) 81 mg PO DAILY [facility] Last Admin: 06/09/18 10:58 Dose: 81 mg Benzonatate (Tessalon Perles) 100 mg PO DAILY [facility] Last Admin: 06/09/18 10:57 Dose: 100 mg Escitalopram Oxalate (Lexapro) 5 mg PO DAILY [facility] Famotidine (Pepcid) 20 mg PO DAILY [facility] Last Admin: 06/09/18 10:57 Dose: 20 mg Fluticasone/Vilanterol (Breo Ellipta 100-25 Mcg Inh) 1 puff INH RQD [facility] Last Admin: 06/09/18 11:13 Dose: 1 puff Heparin Sodium (Porcine) (Heparin) 5,000 units SC Q12 [facility] Last Admin: 06/09/18 10:59 Dose: Not Given Methylprednisolone (Solu-Medrol) 40 mg IVP Q12 [facility] Last Admin: 06/09/18 10:58 Dose: 40 mg Trazodone HCl (Desyrel) 50 mg PO HS [facility] - Labs Labs: 06/09/18 07:53 06/09/18 07:53 PT 11.5 SECONDS (9.7-12.2) 06/06/18 06:16 INR 1.1 06/06/18 06:16 APTT 37 SECONDS (21-34) H 06/06/18 06:16 - Constitutional Appears: Non-toxic, No Acute Distress - Head Exam Head Exam: NORMAL INSPECTION - Eye Exam Eye Exam: EOMI, Normal appearance - ENT Exam ENT Exam: Mucous Membranes Moist - Respiratory Exam Respiratory Exam: Decreased Breath Sounds, Wheezes, NORMAL BREATHING PATTERN. absent: Respiratory Distress - Cardiovascular Exam Cardiovascular Exam: REGULAR RHYTHM, +S1, +S2 - GI/Abdominal Exam GI & Abdominal Exam: Soft, Normal Bowel Sounds. absent: Tenderness - Neurological Exam Neurological Exam: Alert, Awake, Oriented x3 - Skin Skin Exam: Dry, Intact, Normal Color Assessment and Plan - Assessment and Plan (Free Text) Assessment: 42 year old male with history of COPD, hypertension, schizophrenia who presents for worsening shortness of breath. Plan: COPD exacerbation Duonebs q4 [facility] Breo Ellipta Solumedrol 40mg IV q12 Tessalone Perles 100mg po daily CXR 06-06-18 : hyperinflated HTN Amlodipine 10mg po daily Hx of TIA Aspirin 81mg po daily Unsteady gait PT/OT recommends gait training and [facility] MDD Psych Consulted: Dr. mccain- recs as below Lexapro 5mg po daily Trazodone 50mg po HS PPX DVT ppx: Heparin 5000 units sc q12 GI ppx: Pepcid 20mg po Disposition: Case management for discussion of [facility] that patient is amenable to once medically stable PGY-1 Odalis Conti Case d/w Dr. Jose
--- NOTE | 2018-06-09 16:59 | CP.PCM.PN ---
Subjective - Date & Time of Evaluation Date of Evaluation: 06/09/18 Time of Evaluation: 10:00 - Subjective Subjective: Patient seen and examined Still complaining of shortness of breath on minimal exertion Still complaining of weakness and dizziness Afebrile Objective - Vital Signs/Intake and Output Vital Signs (last 24 hours): Temp Pulse Resp BP Pulse Ox 98.4 F 61 20 144/96 H 100 06/09/18 16:22 06/09/18 16:39 06/09/18 16:22 06/09/18 16:22 06/09/18 16:22 Intake and Output: 06/09/18 06/09/18 06:59 18:59 Intake Total 1000 Balance 1000 - Medications Medications: Current Medications Acetaminophen (Tylenol 325mg Tab) 650 mg PO Q6 PRN PRN Reason: Pain, moderate (4-7) Albuterol/Ipratropium (Duoneb 3 Mg/0.5 Mg (3 Ml) Ud) 3 ml INH RQ4 PRN PRN Reason: Shortness of Breath Last Admin: 06/09/18 02:33 Dose: 3 ml Amlodipine Besylate (Norvasc) 10 mg PO DAILY [facility] Last Admin: 06/09/18 10:57 Dose: 10 mg Aspirin (Aspirin Chewable) 81 mg PO DAILY [facility] Last Admin: 06/09/18 10:58 Dose: 81 mg Benzonatate (Tessalon Perles) 100 mg PO DAILY [facility] Last Admin: 06/09/18 10:57 Dose: 100 mg Escitalopram Oxalate (Lexapro) 5 mg PO DAILY [facility] Famotidine (Pepcid) 20 mg PO DAILY [facility] Last Admin: 06/09/18 10:57 Dose: 20 mg Fluticasone/Vilanterol (Breo Ellipta 100-25 Mcg Inh) 1 puff INH RQD [facility] Last Admin: 06/09/18 11:13 Dose: 1 puff Heparin Sodium (Porcine) (Heparin) 5,000 units SC Q12 [facility] Last Admin: 06/09/18 10:59 Dose: Not Given Methylprednisolone (Solu-Medrol) 40 mg IVP Q12 [facility] Last Admin: 06/09/18 10:58 Dose: 40 mg Trazodone HCl (Desyrel) 50 mg PO HS [facility] - Labs Labs: 06/09/18 07:53 06/09/18 07:53 PT 11.5 SECONDS (9.7-12.2) 06/06/18 06:16 INR 1.1 06/06/18 06:16 APTT 37 SECONDS (21-34) H 06/06/18 06:16 - Head Exam Head Exam: ATRAUMATIC, NORMOCEPHALIC - ENT Exam ENT Exam: Mucous Membranes Moist - Neck Exam Neck Exam: Normal Inspection - Respiratory Exam Respiratory Exam: Rhonchi, Wheezes - Cardiovascular Exam Cardiovascular Exam: REGULAR RHYTHM - GI/Abdominal Exam GI & Abdominal Exam: Soft, Normal Bowel Sounds - Extremities Exam Extremities Exam: Normal Inspection - Neurological Exam Neurological Exam: Alert Assessment and Plan (1) COPD exacerbation Assessment & Plan: Continue IV steroids and nebulizer treatment Physical therapy Pulmonary function test Status: Acute
[2018-06-10] MEDS: Fluticasone-Vilanterol 100/25mcg Diskus INH SCH (07:55)
[2018-06-10 08:07] LABS: BASO # 0.1 K/uL (0.0-0.2); BASO % 0.6 % (0.0-2.0); HEMOGLOBIN 15.4 g/dL (12.0-18.0); LYMPH # 1.1 K/uL (1.0-4.3); LYMPH % 12.2 % (20.0-40.0); MEAN CELL VOLUME 91.6 fL (80.0-94.0); MEAN CORPUSCULAR HEMOGLOBIN 30.9 pg (27.0-31.0); MEAN CORPUSCULAR HGB CONC 33.8 g/dL (33.0-37.0); MEAN PLATELET VOLUME 10.1 fL (7.2-11.7); MONO # 0.8 K/uL (0.0-0.8); MONO % 8.6 % (0.0-10.0); NEUT # 7.3 K/uL (1.8-7.0); NEUT % 78.6 % (50.0-75.0); NRBC % 0.1 % (0.0-2.0); RBC 4.97 Mil/uL (4.40-5.90); WHITE BLOOD COUNT 9.2 K/uL (4.8-10.8)
[2018-06-10 08:12] LABS: ALB/GLOB RATIO 1.5 (1.0-2.1); ALBUMIN 4.7 g/dL (3.5-5.0); ALT/SGPT 15 U/L (21-72); AST/SGOT 14 U/L (17-59); BLOOD UREA NITROGEN 19 mg/dL (9-20); CALCIUM 10.1 mg/dl (8.6-10.4); GFR NON-AFRICAN AMERICAN > 60
[2018-06-10] MEDS: MethylPREDNISolone 40 mg Vial IVP SCH (09:41)
--- NOTE | 2018-06-10 11:29 | CP.PCM.PN ---
Subjective - Date & Time of Evaluation Date of Evaluation: 06/10/18 Time of Evaluation: 11:26 - Subjective Subjective: Medicine Progress Note for Dr. Jose's service S/E at bedside. Patient reports increased night sweats. States been happening for past few months. Denies fevers, chills, weight loss, chest pain, sob, n/v, constipation or diarrhea, and dysuria. Objective - Vital Signs/Intake and Output Vital Signs (last 24 hours): Temp Pulse Resp BP Pulse Ox 97.7 F 57 L 20 162/107 H 100 06/10/18 08:20 06/10/18 08:20 06/10/18 08:20 06/10/18 08:20 06/10/18 08:20 Intake and Output: 06/10/18 06/10/18 06:59 18:59 Intake Total 700 600 Balance 700 600 - Medications Medications: Current Medications Acetaminophen (Tylenol 325mg Tab) 650 mg PO Q6 PRN PRN Reason: Pain, moderate (4-7) Albuterol/Ipratropium (Duoneb 3 Mg/0.5 Mg (3 Ml) Ud) 3 ml INH RQ4 PRN PRN Reason: Shortness of Breath Last Admin: 06/09/18 02:33 Dose: 3 ml Amlodipine Besylate (Norvasc) 10 mg PO DAILY [facility] Last Admin: 06/10/18 09:41 Dose: 10 mg Aspirin (Aspirin Chewable) 81 mg PO DAILY [facility] Last Admin: 06/10/18 09:40 Dose: 81 mg Benzonatate (Tessalon Perles) 100 mg PO DAILY [facility] Last Admin: 06/10/18 09:40 Dose: 100 mg Escitalopram Oxalate (Lexapro) 5 mg PO DAILY [facility] Last Admin: 06/10/18 09:40 Dose: 5 mg Famotidine (Pepcid) 20 mg PO DAILY [facility] Last Admin: 06/10/18 09:40 Dose: 20 mg Fluticasone/Vilanterol (Breo Ellipta 100-25 Mcg Inh) 1 puff INH RQD [facility] Last Admin: 06/10/18 07:55 Dose: Not Given Heparin Sodium (Porcine) (Heparin) 5,000 units SC Q12 [facility] Last Admin: 06/10/18 09:29 Dose: Not Given Methylprednisolone (Solu-Medrol) 40 mg IVP Q12 [facility] Last Admin: 06/10/18 09:41 Dose: 40 mg Trazodone HCl (Desyrel) 50 mg PO HS [facility] Last Admin: 06/09/18 21:47 Dose: 50 mg - Labs Labs: 06/10/18 07:43 06/10/18 07:43 PT 11.5 SECONDS (9.7-12.2) 06/06/18 06:16 INR 1.1 06/06/18 06:16 APTT 37 SECONDS (21-34) H 06/06/18 06:16 - Additional Findings Additional findings: - Constitutional Appears: Non-toxic, No Acute Distress - Head Exam Head Exam: NORMAL INSPECTION - Eye Exam Eye Exam: EOMI, Normal appearance - ENT Exam ENT Exam: Mucous Membranes Moist - Respiratory Exam Respiratory Exam: Decreased Breath Sounds, CTA b/l, NORMAL BREATHING PATTERN. absent: Respiratory Distress - Cardiovascular Exam Cardiovascular Exam: REGULAR RHYTHM, +S1, +S2 - GI/Abdominal Exam GI & Abdominal Exam: Soft, Normal Bowel Sounds. absent: Tenderness - Neurological Exam Neurological Exam: Alert, Awake, Oriented x3 - Skin Skin Exam: Dry, Intact, Normal Color Assessment and Plan - Assessment and Plan (Free Text) Assessment: 42 year old male with history of COPD, hypertension, schizophrenia who presents for worsening shortness of breath. Plan: COPD exacerbation Duonebs q4 [facility] Breo Ellipta daily Tessalone Perles 100mg po daily CXR 06-06-18 : hyperinflated HTN Amlodipine 10mg po daily HCTZ 25mg po daily, due to persistent elevated blood pressures Hx of TIA Aspirin 81mg po daily Unsteady gait PT/OT recommends gait training and [facility] MDD Psych Consulted: Dr. mccain- recs as below Lexapro 5mg po daily Trazodone 50mg po HS PPX DVT ppx: Heparin 5000 units sc q12 GI ppx: Pepcid 20mg po Disposition: Case management to discuss [facility] options with patient. Clinically stable for discharge PGY-1 Odalis Shirley d/w Dr. Jose
--- NOTE | 2018-06-10 21:59 | CARD ---
APPROVED REPORT Date of service: 06/06/2018 EKG Measurement Heart [id number] <Conclusion> Sinus bradycardia Septal infarct, age undetermined Abnormal ECG
[2018-06-11] MEDS: Fluticasone-Vilanterol 100/25mcg Diskus INH SCH (08:25)
[2018-06-11 08:47] LABS: BASO % 0.2 % (0.0-2.0); EOS % 0.2 % (0.0-4.0); HEMOGLOBIN 14.9 g/dL (12.0-18.0); LYMPH # 3.1 K/uL (1.0-4.3); LYMPH % 38.5 % (20.0-40.0); MEAN CELL VOLUME 91.4 fL (80.0-94.0); MEAN CORPUSCULAR HEMOGLOBIN 31.1 pg (27.0-31.0); MEAN PLATELET VOLUME 9.8 fL (7.2-11.7); MONO % 12.3 % (0.0-10.0); NEUT # 3.9 K/uL (1.8-7.0); NEUT % 48.8 % (50.0-75.0); NRBC % 0.1 % (0.0-2.0); RBC 4.79 Mil/uL (4.40-5.90); RED CELL DISTRIBUTION WIDTH 14.9 % (11.5-14.5)
[2018-06-11 08:58] LABS: ALB/GLOB RATIO 1.5 (1.0-2.1); ALBUMIN 4.1 g/dL (3.5-5.0); ALT/SGPT 11 U/L (21-72); AST/SGOT 19 U/L (17-59); BLOOD UREA NITROGEN 21 mg/dL (9-20); CALCIUM 9.4 mg/dl (8.6-10.4); GFR NON-AFRICAN AMERICAN > 60
[2018-06-11] MEDS ORDERED: Potassium Chloride 20 mEq ER Tab PO SCH (10:00)
[2018-06-11] MEDS ORDERED: Tuberculin 5 Units/0.1 ml Inj ID ONE (13:00)
--- NOTE | 2018-06-11 13:17 | CP.PCM.DIS ---
Provider - Provider Date of Admission: 06/08/18 17:36 Attending physician: Sidney Jose Jr, MD Consults: 06/06/18 07:52 Pastoral Care Referral Routine Comment: CURRENTLY ED BED 6 Physician Instructions: Reason For Exam: IN FAMILY LEARNED ABOUT THIS MORNING 06/06/18 10:44 Pulmonology Consult Routine Comment: Consulting Provider: Peter Nash Consulting Physician: Peter Nash Reason for Consult: COPD 06/08/18 17:35 Case Management Referral Routine Comment: Physician Instructions: Reason For Exam: SANDY placement Reason for Referral: Discharge Planning 06/08/18 18:04 Inpatient STEWARD/STEWARD[facility] TOURIST CLASS Core Measures Referral Routine Comment: Physician Instructions: Reason For Exam: copd 06/09/18 10:27 Psychiatry Consult Routine Comment: Consulting Provider: Yara Estrada Consulting Physician: Yara Estrada Reason for Consult: hx of bipolar disease Time Spent in preparation of Discharge (in minutes): 30 Hospital Course - Lab Results Lab Results: Most Recent Lab Values WBC 8.0 K/uL (4.8-10.8) 06/11/18 08:32 RBC 4.79 Mil/uL (4.40-5.90) 06/11/18 08:32 Hgb 14.9 g/dL (12.0-18.0) 06/11/18 08:32 Hct 43.8 % (35.0-51.0) 06/11/18 08:32 MCV 91.4 fL (80.0-94.0) 06/11/18 08:32 MCH 31.1 pg (27.0-31.0) H 06/11/18 08:32 MCHC 34.0 g/dL (33.0-37.0) 06/11/18 08:32 RDW 14.9 % (11.5-14.5) H 06/11/18 08:32 Plt Count 333 K/uL (130-400) 06/11/18 08:32 MPV 9.8 fL (7.2-11.7) 06/11/18 08:32 Neut % (Auto) 48.8 % (50.0-75.0) L 06/11/18 08:32 Lymph % (Auto) 38.5 % (20.0-40.0) 06/11/18 08:32 [place] % (Auto) 12.3 % (0.0-10.0) H 06/11/18 08:32 Eos % (Auto) 0.2 % (0.0-4.0) 06/11/18 08:32 Baso % (Auto) 0.2 % (0.0-2.0) 06/11/18 08:32 Neut # (Auto) 3.9 K/uL (1.8-7.0) 06/11/18 08:32 Lymph # (Auto) 3.1 K/uL (1.0-4.3) 06/11/18 08:32 [place] # (Auto) 1.0 K/uL (0.0-0.8) H 06/11/18 08:32 Eos # (Auto) 0.0 K/uL (0.0-0.7) 06/11/18 08:32 Baso # (Auto) 0.0 K/uL (0.0-0.2) 06/11/18 08:32 Neutrophils % (Manual) 80 % (50-75) H 06/07/18 07:22 Band Neutrophils % 9 % (0-2) H 06/07/18 07:22 Lymphocytes % (Manual) 7 % (20-40) L 06/07/18 07:22 Monocytes % (Manual) 4 % (0-10) 06/07/18 07:22 Differential Comment 06/09/18 07:53 Toxic Granulation Present 06/07/18 07:22 Platelet Estimate Normal (NORMAL) 06/07/18 07:22 Large Platelets Present 06/07/18 07:22 Giant Platelets Present 06/07/18 07:22 Polychromasia Slight 06/07/18 07:22 Hypochromasia (manual) Slight 06/07/18 07:22 Anisocytosis (manual) Slight 06/07/18 07:22 PT 11.5 SECONDS (9.7-12.2) 06/06/18 06:16 INR 1.1 06/06/18 06:16 APTT 37 SECONDS (21-34) H 06/06/18 06:16 Sodium 133 mmol/L (132-148) 06/11/18 08:32 Potassium 2.9 mmol/L (3.6-5.2) L 06/11/18 08:32 Chloride 96 mmol/L (98-107) L 06/11/18 08:32 Carbon Dioxide 29 mmol/L (22-30) 06/11/18 08:32 Anion Gap 12 (10-20) 06/11/18 08:32 BUN 21 mg/dL (9-20) H 06/11/18 08:32 Creatinine 0.7 mg/dL (0.8-1.5) L 06/11/18 08:32 Est GFR ( Amer) > 60 06/11/18 08:32 Est GFR (Non-Af Amer) > 60 06/11/18 08:32 POC Glucose (mg/dL) 90 mg/dL (65-110) 06/11/18 07:02 Random Glucose 111 mg/dL (75-110) H 06/11/18 08:32 Calcium 9.4 mg/dl (8.6-10.4) 06/11/18 08:32 Total Bilirubin 0.5 mg/dL (0.2-1.3) 06/11/18 08:32 AST 19 U/L (17-59) 06/11/18 08:32 ALT 11 U/L (21-72) L D 06/11/18 08:32 Alkaline Phosphatase 70 U/L (38-126) 06/11/18 08:32 Total Creatine Kinase 80 U/L (55-170) 06/06/18 06:16 CK-MB (Mass) 0.50 ng/mL (0.0-3.38) 06/06/18 06:16 Troponin I < 0.0120 ng/mL (0.00-0.120) 06/06/18 06:16 NT-Pro-B Natriuret Pep 120 pg/mL (0-450) 06/06/18 06:16 Total Protein 6.8 g/dL (6.3-8.3) 06/11/18 08:32 Albumin 4.1 g/dL (3.5-5.0) 06/11/18 08:32 Globulin 2.7 gm/dL (2.2-3.9) 06/11/18 08:32 Albumin/Globulin Ratio 1.5 (1.0-2.1) 06/11/18 08:32 RPR Nonreactive (NONREACTIVE) 06/08/18 17:00 Hepatitis A IgM Ab Negative (NEGATIVE) 06/08/18 16:45 Hep Bs Antigen Negative (NEGATIVE) 06/08/18 16:45 Hep B Core IgM Ab Negative (NEGATIVE) 06/08/18 16:45 Hepatitis C Antibody Negative (NEGATIVE) 06/08/18 16:45 HIV 1&2 Antibody Screen Negative (NEGATIVE) 06/08/18 17:00 - Hospital Course Hospital Course: Upon Admission 42M with a PMHx of COPD, HTN, schizophrenia, bipolar, possible TIApresents to the ED with SOB since he left [facility] a few days ago. He admits to nonproductive cough and chills, but denies chest pain, palpitations, abdominal pain, nausea/vomiting, diarrhea. Patient was given neb treatments and Soluemdrol 125mg IV in the field. Pt reports he has been taking his home medications and complying with medical therapy after his discharge. Pt has not followed up in office however since his dc from [facility]. Pt denies any syncopal events. Hospital Course Patient was admitted for COPD exacerbation. Was started on duonebs, breoellipta, and steroids. Patient improved steadily. Patient had psych eval due to his psych history. Patient was started on depression medications. Pulm evaluated patient for COPD history and recommended a regimen for optimization of treatment. Patient was found to have lower extremity weakness and could not ambulate without assistance. PT recommended rolling walker. Discharged with rolling walker. Patient complained of heavy sweating. Negative for HIV. PPD was placed although patient stated he had one recently done. Followup instructions were given. Discharge Plan 1. Patient is stable for discharge to home as per Dr. Jose 2. Patient must followup within 1 week of discharge to hospital. 3. Patient should take the medications as reconciled. 4. Patient should return to hospital if symptoms worsen or recur. 5. Patient understands the plan as above and agrees. Discharge Exam - Head Exam Head Exam: ATRAUMATIC, NORMOCEPHALIC - Eye Exam Eye Exam: EOMI, Normal appearance. absent: Nystagmus, Scleral icterus - ENT Exam ENT Exam: Mucous Membranes Moist - Respiratory Exam Respiratory Exam: NORMAL BREATHING PATTERN - Cardiovascular Exam Cardiovascular Exam: REGULAR RHYTHM, +S1, +S2 - GI/Abdominal Exam GI & Abdominal Exam: Normal Bowel Sounds, Soft. absent: Tenderness - Extremities Exam Extremities exam: normal inspection - Neurological Exam Neurological exam: Alert, Oriented x3 - Psychiatric Exam Psychiatric exam: Normal Affect, Normal Mood - Skin Skin Exam: Dry, Intact, Normal Color Discharge Plan - Discharge Medications Prescriptions: Albuterol HFA [Ventolin HFA 90 mcg/actuation (8 g)] 2 puff IH PRN PRN #120 puff PRN Reason: Shortness Of Breath amLODIPine [Norvasc] 10 mg PO DAILY #30 tab Aspirin [Aspirin Chewable] 81 mg PO DAILY #30 chew Benzonatate [Tessalon Perles] 100 mg PO DAILY #30 sgl Escitalopram [Lexapro] 5 mg PO DAILY #30 tab Famotidine [Pepcid] 20 mg PO DAILY #30 tab hydroCHLOROthiazide [Hydrodiuril] 25 mg PO BID #60 tab Potassium Chloride [K-Dur 20 mEq ER Tab] 20 meq PO DAILY #30 predniSONE [predniSONE Tab] 10 mg PO DAILY #5 tab traZODone [Desyrel] 50 mg PO HS #30 tab - Follow Up Plan Condition: GOOD Disposition: HOME/ ROUTINE Instructions: Smoking: Not Just Harmful to Your Lungs and Heart, COPD Including Emphysema (DC), Quitting Smoking, Albuterol, Amlodipine, Aspirin, Benzonatate, Escitalopram, Famotidine, Hydrochlorothiazide, Prednisone, Trazodone Additional Instructions: 1. Patient is stable for discharge to home as per Dr. Jose 2. Patient must followup within 1 week of discharge to hospital. 3. Patient should take the medications as reconciled. 4. Patient should return to hospital if symptoms worsen or recur. 5. Patient understands the plan as above and agrees. Referrals: Sidney Jose Jr., MD [Medical Doctor] -
--- NOTE | 2018-06-11 15:42 | CP.PCM.PN ---
Subjective - Date & Time of Evaluation Date of Evaluation: 06/11/18 Time of Evaluation: 13:20 - Subjective Subjective: Patient seen and examined Breathing much improved Afebrile Denies any chest pain Okay to discharge home on prednisone, rescue inhaler and Laba lama combination Follow-up in the office Objective - Vital Signs/Intake and Output Vital Signs (last 24 hours): Temp Pulse Resp BP Pulse Ox 97.8 F 81 20 161/90 H 99 06/11/18 07:38 06/11/18 09:29 06/11/18 07:38 06/11/18 09:29 06/11/18 07:38 Intake and Output: 06/11/18 06/11/18 06:59 18:59 Intake Total 400 Balance 400 - Medications Medications: Current Medications Acetaminophen (Tylenol 325mg Tab) 650 mg PO Q6 PRN PRN Reason: Pain, moderate (4-7) Albuterol/Ipratropium (Duoneb 3 Mg/0.5 Mg (3 Ml) Ud) 3 ml INH RQ4 PRN PRN Reason: Shortness of Breath Last Admin: 06/09/18 02:33 Dose: 3 ml Amlodipine Besylate (Norvasc) 10 mg PO DAILY [facility] Last Admin: 06/11/18 09:32 Dose: 10 mg Aspirin (Aspirin Chewable) 81 mg PO DAILY [facility] Last Admin: 06/11/18 09:32 Dose: 81 mg Benzonatate (Tessalon Perles) 100 mg PO DAILY [facility] Last Admin: 06/11/18 09:33 Dose: 100 mg Escitalopram Oxalate (Lexapro) 5 mg PO DAILY [facility] Last Admin: 06/11/18 09:32 Dose: 5 mg Famotidine (Pepcid) 20 mg PO DAILY [facility] Last Admin: 06/11/18 09:32 Dose: 20 mg Fluticasone/Vilanterol (Breo Ellipta 100-25 Mcg Inh) 1 puff INH RQD [facility] Last Admin: 06/11/18 08:25 Dose: Not Given Heparin Sodium (Porcine) (Heparin) 5,000 units SC Q12 [facility] Last Admin: 06/11/18 09:34 Dose: Not Given Hydrochlorothiazide (Hydrodiuril) 25 mg PO BID [facility] Last Admin: 06/11/18 10:56 Dose: Not Given Potassium Chloride (K-Dur 20 Meq Er Tab) 40 meq PO DAILY [facility] Last Admin: 06/11/18 11:05 Dose: 40 meq Trazodone HCl (Desyrel) 50 mg PO HS [facility] Last Admin: 06/10/18 22:26 Dose: 50 mg - Labs Labs: 06/11/18 08:32 06/11/18 08:32 PT 11.5 SECONDS (9.7-12.2) 06/06/18 06:16 INR 1.1 06/06/18 06:16 APTT 37 SECONDS (21-34) H 06/06/18 06:16 Assessment and Plan (1) COPD exacerbation Status: Acute
[2018-06-11 16:38] VITALS: BP 167/104; PULSE 78; TEMP 98.3; O2SAT 97
== END 2018-06-11 17:51 | disposition home or self-care (01) | DRG 88 ==
LOC: C.ER 05:49 → C.9E 07:15 → C.5S 13:35 → OBSVTOIN 06-08 17:36
PROVIDERS: ADMIT Internal Medicine; ATTEND Internal Medicine
PROC: GZ56ZZZ Individual Psychotherapy, Supportive (ICD-10-PCS; principal; 2018-06-09)
DX: J44.1 Chronic obstructive pulmonary disease with (acute) exacerbation (principal); F20.9 Schizophrenia, unspecified; F31.9 Bipolar disorder, unspecified; F43.10 Post-traumatic stress disorder, unspecified; I10 Essential (primary) hypertension; M46.96 Unspecified inflammatory spondylopathy, lumbar region; R26.81 Unsteadiness on feet; R45.851 Suicidal ideations; Z87.891 Personal history of nicotine dependence; Z87.01 Personal history of pneumonia (recurrent); Z86.73 Personal history of transient ischemic attack (TIA), and cerebral infarction without residual deficits

== ENCOUNTER 2018-06-23 08:27 | Inpatient (IN) | payer MEDICAID ==
[2018-06-23 08:27] VITALS: BMI 18.8
--- NOTE | 2018-06-23 08:54 | C.PDOC ---
History Of Present Illness COPD EXAC THIS MORNING. PS VISITING RN AND HOME HEALTH NEVER SHOWED UP SINCE DC 06/11 AFTER ADMISISON FOR COPD EXAC. PS SUPPOSED TO RECEIVE WALKER BUT NEVER GOT IT. CURRENT SX SIM TO [facility]IOR. LIVES ON [address]LO[address] WALK UP BUILDING, BECOMES WINDED BY 2ND FLOOR. "I JUST COMPLETED THE PILLS THEY GIVE ME BUT I STILL HAVE THE PUMPS". LIMTIED RELIEF W PUMPS. NO FEVER, CP. HO UNCONTROLL HTN ?COMPLIANCE W MEDS PMHx of COPD, HTN, schizophrenia, bipolar, possible TIA Albuterol HFA [Ventolin HFA 90 mcg/actuation (8 g)] 2 puff IH PRN PRN #120 puff PRN Reason: Shortness Of Breath amLODIPine [Norvasc] 10 mg PO DAILY #30 tab Aspirin [Aspirin Chewable] 81 mg PO DAILY #30 chew Benzonatate [Tessalon Perles] 100 mg PO DAILY #30 sgl Escitalopram [Lexapro] 5 mg PO DAILY #30 tab Famotidine [Pepcid] 20 mg PO DAILY #30 tab hydroCHLOROthiazide [Hydrodiuril] 25 mg PO BID #60 tab Potassium Chloride [K-Dur 20 mEq ER Tab] 20 meq PO DAILY #30 predniSONE [predniSONE Tab] 10 mg PO DAILY #5 tab traZODone [Desyrel] 50 mg PO HS #30 tab EXAM MILD DIST NONTOXIC LUNGS +MILD RETRACTION SPEAKING FULL SENTENCES OCC EXP WHEEZE CV RRR REMAINDER NEG Time Seen by Provider: 06/23/18 08:44 Chief Complaint (Nursing): Shortness Of Breath History Per: Patient History/Exam Limitations: no limitations Onset/Duration Of Symptoms: Days Current Symptoms Are (Timing): Still Present Severity: Moderate Past Medical History Reviewed: Historical Data, Nursing Documentation, Vital Signs Vital Signs: Last Vital Signs Temp 97.9 F 06/23/18 08:37 Pulse 67 06/23/18 08:37 Resp 18 06/23/18 08:37 BP 158/100 H 06/23/18 08:37 Pulse Ox 100 06/23/18 08:37 - Medical History PMH: Arthritis (BACK), Asthma, Bipolar Disorder, COPD, HTN, Pneumonia, Schizophrenia Denies: HIV, Chronic Kidney Disease Other Surgeries: Hx of surgeries - [facility] Procedures INDIVIDUAL PSYCHOTHERAPY, SUPPORTIVE (06/08/18) INTRODUCTION OF ANTI-INFLAM INTO RESP TRACT, VIA OPENING (09/04/17) Family History: States: No Known Family Hx - Social History Hx Tobacco Use: Yes (2 packs a day) Hx Alcohol Use: No Hx Substance Use: No - Immunization History Hx Tetanus Toxoid Vaccination: Yes Hx Influenza Vaccination: Yes Hx Pneumococcal Vaccination: Yes Review Of Systems Except As Marked, All Systems Reviewed And Found Negative. Constitutional: Negative for: Fever, Chills Cardiovascular: Negative for: Chest Pain Respiratory: Positive for: Shortness of Breath Gastrointestinal: Negative for: Nausea, Vomiting Physical Exam - Physical Exam Appears: Non-toxic, Other (mild distress) Skin: Normal Color, Warm, Dry Head: Atraumatic, Normacephalic Eye(s): bilateral: Normal Inspection Nose: Normal Oral Mucosa: Moist Neck: Supple Chest: Symmetrical Cardiovascular: Rhythm Regular (RRR) Respiratory: No Rales, No Rhonchi, Wheezing (occasional expiratory wheezing), Other (speaking in full sentences, mild retraction) Gastrointestinal/Abdominal: Normal Exam, Soft, No Tenderness, No Guarding, No Rebound Neurological/Psych: Oriented x3, Normal Speech ED Course And Treatment - Laboratory Results Result Diagrams: 06/23/18 09:28 06/23/18 09:28 ECG: Interpreted By Me ECG Rhythm: Sinus Rhythm ECG Interpretation: Normal Rate From EC O2 Sat by Pulse Oximetry: 100 (RA) Pulse Ox Interpretation: Normal - Radiology CXR: Interpreted by Me, Viewed By Pr CXR Interpretation: Yes: No Acute Disease Progress - Re-Evaluation Re-evaluation Note: 06/23/18 09:00 D/W DR HALL AWARE OF ER FINDINGS WILL ADMIT. PENDING MED RES CALLBACK 06/23/18 09:19 PENDING RESPONSE MED RES - Data Reviewed Data Reviewed: Lab, Diagnostic imaging Medical Decision Making Medical Decision Making: Plan: --Labs --ECG --CXR --Duoneb --Solu-Medrol IV Disposition Counseled Patient/Family Regarding: Studies Performed, Diagnosis - Disposition Disposition: HOSPITALIZED Disposition Time: 09:00 Condition: STABLE - Clinical Impression Clinical Impression: COPD exacerbation - Scribe Statement The provider has reviewed the documentation as recorded by the Soto Chung Provider Attestation: All medical record entries made by the Franciscaibe were at my direction and personally dictated by me. I have reviewed the chart and agree that the record accurately reflects my personal performance of the history, physical exam, medical decision making, and the department course for this patient. I have also personally directed, reviewed, and agree with the discharge instructions and disposition.
[2018-06-23] MEDS ORDERED: MethylPREDNISolone 40 mg Vial ONE (09:10)
[2018-06-23] MEDS ORDERED: Albuterol-Ipratrop 3 mg / 0.5 (3 ml) UD ONE (09:10)
[2018-06-23] MEDS: Albuterol-Ipratrop 3 mg / 0.5 (3 ml) UD IH SCH ×3 (09:15→09:24)
[2018-06-23 09:40] LABS: BASO # 0.1 K/uL (0.0-0.2); BASO % 1.5 % (0.0-2.0); EOS # 0.1 K/uL (0.0-0.7); EOS % 2.5 % (0.0-4.0); HEMOGLOBIN 13.5 g/dL (12.0-18.0); LYMPH # 1.3 K/uL (1.0-4.3); LYMPH % 33.1 % (20.0-40.0); MEAN CELL VOLUME 91.5 fL (80.0-94.0); MEAN CORPUSCULAR HEMOGLOBIN 30.2 pg (27.0-31.0); MEAN PLATELET VOLUME 9.1 fL (7.2-11.7); MONO # 0.6 K/uL (0.0-0.8); MONO % 15.7 % (0.0-10.0); NEUT # 1.8 K/uL (1.8-7.0); NEUT % 47.2 % (50.0-75.0); RBC 4.45 Mil/uL (4.40-5.90); RED CELL DISTRIBUTION WIDTH 15.9 % (11.5-14.5)
[2018-06-23 09:42] LABS: WHITE BLOOD COUNT 3.9 K/uL (4.8-10.8)
[2018-06-23 09:50] LABS: ALB/GLOB RATIO 1.5 (1.0-2.1); ALBUMIN 4.4 g/dL (3.5-5.0); ALT/SGPT 11 U/L (21-72); AST/SGOT 21 U/L (17-59); BLOOD UREA NITROGEN 10 mg/dL (9-20); CALCIUM 9.6 mg/dl (8.6-10.4); GFR NON-AFRICAN AMERICAN > 60
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
--- NOTE | 2018-06-23 11:43 | RAD ---
HISTORY: SOB COMPARISON: Chest x-ray performed 06/06/18 TECHNIQUE: Chest PA and lateral, 2 views FINDINGS: LUNGS: Biapical pleural thickening. No focal consolidation. Please note that chest x-ray has limited sensitivity for the detection of pulmonary masses. PLEURA: No significant pleural effusion identified. No definite pneumothorax . CARDIOVASCULAR: Heart size appears within normal limits. Atherosclerotic calcifications present. OSSEOUS STRUCTURES: No acute osseous abnormality identified. VISUALIZED UPPER ABDOMEN: Unremarkable. OTHER FINDINGS: None. IMPRESSION: No focal consolidation.
[2018-06-23] MEDS: Fluticasone-Vilanterol 100/25mcg Diskus INH SCH (16:47)
[2018-06-23] MEDS ORDERED: Petrolatum Oint Foilpak (5 gm) TOP PRN (17:30)
[2018-06-23] MEDS: Albuterol-Ipratrop 3 mg / 0.5 (3 ml) UD INH PRN (21:52)
[2018-06-24 07:31] LABS: BASO % 0.3 % (0.0-2.0); EOS % 0.1 % (0.0-4.0); HEMOGLOBIN 13.3 g/dL (12.0-18.0); LYMPH # 1.8 K/uL (1.0-4.3); LYMPH % 19.3 % (20.0-40.0); MEAN CELL VOLUME 90.4 fL (80.0-94.0); MEAN CORPUSCULAR HEMOGLOBIN 31.4 pg (27.0-31.0); MEAN CORPUSCULAR HGB CONC 34.7 g/dL (33.0-37.0); MEAN PLATELET VOLUME 9.3 fL (7.2-11.7); MONO # 0.9 K/uL (0.0-0.8); MONO % 9.7 % (0.0-10.0); NEUT # 6.5 K/uL (1.8-7.0); NEUT % 70.6 % (50.0-75.0); NRBC % 0.1 % (0.0-2.0); RBC 4.25 Mil/uL (4.40-5.90); RED CELL DISTRIBUTION WIDTH 15.9 % (11.5-14.5)
[2018-06-24 07:33] LABS: WHITE BLOOD COUNT 9.2 K/uL (4.8-10.8)
[2018-06-24 08:08] LABS: ALB/GLOB RATIO 1.5 (1.0-2.1); ALBUMIN 4.3 g/dL (3.5-5.0); ALT/SGPT 9 U/L (21-72); AST/SGOT 14 U/L (17-59); BLOOD UREA NITROGEN 12 mg/dL (9-20); CALCIUM 9.8 mg/dl (8.6-10.4); GFR NON-AFRICAN AMERICAN > 60
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
[2018-06-24] MEDS: MethylPREDNISolone 40 mg Vial IVP SCH ×2 (09:48→21:13)
[2018-06-24] MEDS: Enoxaparin 40 mg Syringe SC SCH (09:49)
--- NOTE | 2018-06-24 13:46 | CP.PCM.PN ---
Subjective - Date & Time of Evaluation Date of Evaluation: 06/24/18 Time of Evaluation: 08:00 - Subjective Subjective: PGY-[address] Jose Patient is seen and examined at bedside. States improving of SOB, denies chest pain, fever, chills, abdominal pain, n/v/d/c. Patient is oxygenating well on room air. Patient is tolerating diet. Denies any other complaints at this time. Objective - Vital Signs/Intake and Output Vital Signs (last 24 hours): Temp Pulse Resp BP Pulse Ox 97.9 F 86 20 161/130 H 98 06/24/18 07:52 06/24/18 07:52 06/24/18 07:52 06/24/18 07:52 06/24/18 07:52 Intake and Output: 06/24/18 06/24/18 06:59 18:59 Intake Total 750 Balance 750 - Medications Medications: Current Medications Albuterol/Ipratropium (Duoneb 3 Mg/0.5 Mg (3 Ml) Ud) 3 ml INH RQ4 PRN PRN Reason: Shortness of Breath Last Admin: 06/23/18 21:52 Dose: 3 ml Amlodipine Besylate (Norvasc) 10 mg PO DAILY [facility] Last Admin: 06/24/18 09:48 Dose: 10 mg Emollient Ointment (Vaseline Oint) 5 gm TOP BID PRN PRN Reason: Dry skin Last Admin: 06/23/18 22:00 Dose: 5 gm Enoxaparin Sodium (Lovenox) 40 mg SC DAILY [facility] Last Admin: 06/24/18 09:49 Dose: Not Given Escitalopram Oxalate (Lexapro) 5 mg PO DAILY [facility] Last Admin: 06/24/18 09:48 Dose: 5 mg Famotidine (Pepcid) 20 mg PO DAILY [facility] Last Admin: 06/24/18 09:48 Dose: 20 mg Fluticasone/Vilanterol (Breo Ellipta 100-25 Mcg Inh) 1 puff INH RQD [facility] Last Admin: 06/23/18 16:47 Dose: 1 puff Hydrochlorothiazide (Hydrodiuril) 25 mg PO BID [facility] Last Admin: 06/24/18 09:48 Dose: 25 mg Methylprednisolone (Solu-Medrol) 40 mg IVP Q12 [facility] Last Admin: 06/24/18 09:48 Dose: 40 mg Trazodone HCl (Desyrel) 50 mg PO HS [facility] Last Admin: 06/23/18 22:01 Dose: 50 mg - Labs Labs: 06/24/18 07:23 06/24/18 07:23 - Constitutional Appears: Non-toxic, No Acute Distress - Head Exam Head Exam: ATRAUMATIC, NORMOCEPHALIC - Eye Exam Eye Exam: EOMI - ENT Exam ENT Exam: Mucous Membranes Moist - Neck Exam Neck Exam: Normal Inspection - Respiratory Exam Respiratory Exam: Clear to Ausculation Bilateral, NORMAL BREATHING PATTERN - Cardiovascular Exam Cardiovascular Exam: REGULAR RHYTHM, +S1, +S2 - GI/Abdominal Exam GI & Abdominal Exam: Soft - Extremities Exam Extremities Exam: Full ROM - Back Exam Back Exam: NORMAL INSPECTION - Neurological Exam Neurological Exam: Alert, Awake, Oriented x3 - Psychiatric Exam Psychiatric exam: Normal Affect, Normal Mood - Skin Skin Exam: Dry, Normal Color, Warm Assessment and Plan - Assessment and Plan (Free Text) Assessment: 42 year old male with PMhx of HTN, COPD, bipolar, schizophrenia presents with acute COPD exacerbation, improving symptoms s/p IV steroids, neb treatment. Plan: COPD exacerbation - 100-98-96% O2 in RA - solumedrol 40 mg BID - Breo ellipta 100-25 1 puff daily - duonebs Q4H PRN - F/u pulm recs - Dr khan - will reassess need for further IV steroids in am History of HTN - amlodipine 10 mg PO daily - HCTZ 25 mg PO BID Hx of Bipolar disease Hx of Schizophrenia - trazodone 50 mg PO HS, lexapro 5 mg PO daily PPx - DVT: lovenox 40 mg SC daily - HHD Plan discussed with Dr Rebeca Carias, PGY-1
[2018-06-24] MEDS ORDERED: Potassium Chloride 20 mEq ER Tab PO ONE (14:47)
[2018-06-25 07:02] VITALS: RESP 20
[2018-06-25 07:07] LABS: BASO % 0.5 % (0.0-2.0); HEMOGLOBIN 14.6 g/dL (12.0-18.0); LYMPH % 11.4 % (20.0-40.0); MEAN CELL VOLUME 90.8 fL (80.0-94.0); MEAN CORPUSCULAR HEMOGLOBIN 30.6 pg (27.0-31.0); MEAN CORPUSCULAR HGB CONC 33.7 g/dL (33.0-37.0); MEAN PLATELET VOLUME 10.2 fL (7.2-11.7); MONO # 0.4 K/uL (0.0-0.8); MONO % 4.1 % (0.0-10.0); NEUT # 7.1 K/uL (1.8-7.0); RBC 4.77 Mil/uL (4.40-5.90); RED CELL DISTRIBUTION WIDTH 15.8 % (11.5-14.5); WHITE BLOOD COUNT 8.5 K/uL (4.8-10.8)
[2018-06-25 07:18] LABS: BLOOD UREA NITROGEN 19 mg/dL (9-20); CALCIUM 10.2 mg/dl (8.6-10.4); GFR NON-AFRICAN AMERICAN > 60
--- NOTE | 2018-06-25 07:23 | CP.PCM.PN ---
Objective - Vital Signs/Intake and Output Vital Signs (last 24 hours): Temp Pulse Resp BP Pulse Ox 98.7 F 64 20 143/86 96 06/25/18 05:00 06/25/18 05:00 06/25/18 05:00 06/25/18 05:00 06/25/18 05:00 Intake and Output: 06/25/18 06/25/18 06:59 18:59 Intake Total 360 Balance 360 - Medications Medications: Current Medications Albuterol/Ipratropium (Duoneb 3 Mg/0.5 Mg (3 Ml) Ud) 3 ml INH RQ4 PRN PRN Reason: Shortness of Breath Last Admin: 06/23/18 21:52 Dose: 3 ml Amlodipine Besylate (Norvasc) 10 mg PO DAILY [facility] Last Admin: 06/24/18 09:48 Dose: 10 mg Emollient Ointment (Vaseline Oint) 5 gm TOP BID PRN PRN Reason: Dry skin Last Admin: 06/23/18 22:00 Dose: 5 gm Enoxaparin Sodium (Lovenox) 40 mg SC DAILY [facility] Last Admin: 06/24/18 09:49 Dose: Not Given Escitalopram Oxalate (Lexapro) 5 mg PO DAILY [facility] Last Admin: 06/24/18 09:48 Dose: 5 mg Famotidine (Pepcid) 20 mg PO DAILY [facility] Last Admin: 06/24/18 09:48 Dose: 20 mg Fluticasone/Vilanterol (Breo Ellipta 100-25 Mcg Inh) 1 puff INH RQD [facility] Last Admin: 06/23/18 16:47 Dose: 1 puff Hydrochlorothiazide (Hydrodiuril) 25 mg PO BID [facility] Last Admin: 06/24/18 17:25 Dose: 25 mg Methylprednisolone (Solu-Medrol) 40 mg IVP Q12 [facility] Last Admin: 06/24/18 21:13 Dose: 40 mg Trazodone HCl (Desyrel) 50 mg PO HS [facility] Last Admin: 06/24/18 21:13 Dose: 50 mg - Labs Labs: 06/25/18 06:31 06/25/18 06:31
--- NOTE | 2018-06-25 07:24 | CP.PCM.PN ---
Subjective - Date & Time of Evaluation Date of Evaluation: 06/25/18 Time of Evaluation: 07:40 - Subjective Subjective: Medicine progress note for Dr. Jose. Patient seen and examined at bedside. Patient reports needing a breathing treatment overnight. Patient overall reports improved breathing. Patient offers no other complaints, denies headaches, vision changes, chest pain, abdominal pain, diarrhea, constipation, N/V, F/C. Objective - Vital Signs/Intake and Output Vital Signs (last 24 hours): Temp Pulse Resp BP Pulse Ox 98.7 F 64 20 143/86 96 06/25/18 05:00 06/25/18 05:00 06/25/18 05:00 06/25/18 05:00 06/25/18 05:00 Intake and Output: 06/25/18 06/25/18 06:59 18:59 Intake Total 360 Balance 360 - Medications Medications: Current Medications Albuterol/Ipratropium (Duoneb 3 Mg/0.5 Mg (3 Ml) Ud) 3 ml INH RQ4 PRN PRN Reason: Shortness of Breath Last Admin: 06/23/18 21:52 Dose: 3 ml Amlodipine Besylate (Norvasc) 10 mg PO DAILY [facility] Last Admin: 06/24/18 09:48 Dose: 10 mg Emollient Ointment (Vaseline Oint) 5 gm TOP BID PRN PRN Reason: Dry skin Last Admin: 06/23/18 22:00 Dose: 5 gm Enoxaparin Sodium (Lovenox) 40 mg SC DAILY [facility] Last Admin: 06/24/18 09:49 Dose: Not Given Escitalopram Oxalate (Lexapro) 5 mg PO DAILY [facility] Last Admin: 06/24/18 09:48 Dose: 5 mg Famotidine (Pepcid) 20 mg PO DAILY [facility] Last Admin: 06/24/18 09:48 Dose: 20 mg Fluticasone/Vilanterol (Breo Ellipta 100-25 Mcg Inh) 1 puff INH RQD [facility] Last Admin: 06/23/18 16:47 Dose: 1 puff Hydrochlorothiazide (Hydrodiuril) 25 mg PO BID [facility] Last Admin: 06/24/18 17:25 Dose: 25 mg Methylprednisolone (Solu-Medrol) 40 mg IVP Q12 [facility] Last Admin: 06/24/18 21:13 Dose: 40 mg Trazodone HCl (Desyrel) 50 mg PO HS [facility] Last Admin: 06/24/18 21:13 Dose: 50 mg - Labs Labs: 06/25/18 06:31 06/25/18 06:31 - Constitutional Appears: Non-toxic, No Acute Distress - Head Exam Head Exam: NORMAL INSPECTION - Eye Exam Eye Exam: Normal appearance - ENT Exam ENT Exam: Mucous Membranes Moist - Respiratory Exam Respiratory Exam: Clear to Ausculation Bilateral, NORMAL BREATHING PATTERN. absent: Rales, Rhonchi, Wheezes - Cardiovascular Exam Cardiovascular Exam: +S1, +S2 - GI/Abdominal Exam GI & Abdominal Exam: Soft, Normal Bowel Sounds - Back Exam Back Exam: absent: CVA tenderness (L), CVA tenderness (R) - Neurological Exam Neurological Exam: Alert, Awake, Oriented x3 - Psychiatric Exam Psychiatric exam: Normal Affect, Normal Mood - Skin Skin Exam: Dry, Intact, Normal Color, Warm Assessment and Plan - Assessment and Plan (Free Text) Assessment: 42 year old male with PMhx of HTN, COPD, bipolar, schizophrenia presents with acute COPD exacerbation, resolving treatment w / breo ellipta & steroids Plan: COPD exacerbation - upper 90s O2 in RA - solumedrol 40 mg BID - Breo ellipta 100-25 1 puff daily - duonebs Q4H PRN - F/u pulm recs - Dr khan - will reassess need for further IV steroids in am History of HTN - amlodipine 10 mg PO daily - HCTZ 25 mg PO BID - start lisinopril 5 mg PO daily as BP in 140s Hx of Bipolar disease Hx of Schizophrenia - patient non compliant with psychiatric medications previously - resume medications trazodone 50 mg PO HS, lexapro 5 mg PO daily PPx - DVT: lovenox 40 mg SC daily - HHD
[2018-06-25] MEDS: MethylPREDNISolone 40 mg Vial IVP SCH ×2 (09:47→21:24)
[2018-06-25] MEDS: Enoxaparin 40 mg Syringe SC SCH (09:47)
--- NOTE | 2018-06-25 10:09 | CP.PCM.PN ---
<Odalis Conti - Last Filed: 06/25/18 10:27> Subjective - Date & Time of Evaluation Date of Evaluation: 06/25/18 Time of Evaluation: 10:06 - Subjective Subjective: Pulm Consult note for Dr. Nash Patient seen and examined at bedside. Appears to be far less short of breath today and patient states he feels better than yesterday. He states his cough is improved. He was seen walking the floor with a walker. Patient continues to state he requires much social work help to find a place for him to stay on the ground floor as he can not continue to climb the stairs to his 4th floor apartment. When discussing this he becomes anxious. Patient denies chest pain, fever, nausea, vomiting, diarrhea, or constipation. ROS: as in HPI otherwise reviewed and negative. Objective - Vital Signs/Intake and Output Vital Signs (last 24 hours): Temp Pulse Resp BP Pulse Ox 98.3 F 61 20 148/91 H 98 06/25/18 07:00 06/25/18 07:00 06/25/18 07:00 06/25/18 07:00 06/25/18 07:00 Intake and Output: 06/25/18 06/25/18 06:59 18:59 Intake Total 360 Balance 360 - Medications Medications: Current Medications Albuterol/Ipratropium (Duoneb 3 Mg/0.5 Mg (3 Ml) Ud) 3 ml INH RQ4 PRN PRN Reason: Shortness of Breath Last Admin: 06/23/18 21:52 Dose: 3 ml Amlodipine Besylate (Norvasc) 10 mg PO DAILY [facility] Last Admin: 06/25/18 09:47 Dose: 10 mg Emollient Ointment (Vaseline Oint) 5 gm TOP BID PRN PRN Reason: Dry skin Last Admin: 06/23/18 22:00 Dose: 5 gm Enoxaparin Sodium (Lovenox) 40 mg SC DAILY [facility] Last Admin: 06/25/18 09:47 Dose: Not Given Escitalopram Oxalate (Lexapro) 5 mg PO DAILY [facility] Last Admin: 06/25/18 09:47 Dose: 5 mg Famotidine (Pepcid) 20 mg PO DAILY [facility] Last Admin: 06/25/18 09:47 Dose: 20 mg Fluticasone/Vilanterol (Breo Ellipta 100-25 Mcg Inh) 1 puff INH RQD [facility] Last Admin: 06/23/18 16:47 Dose: 1 puff Hydrochlorothiazide (Hydrodiuril) 25 mg PO BID [facility] Last Admin: 06/25/18 09:47 Dose: 25 mg Methylprednisolone (Solu-Medrol) 40 mg IVP Q12 [facility] Last Admin: 06/25/18 09:47 Dose: 40 mg Trazodone HCl (Desyrel) 50 mg PO HS [facility] Last Admin: 06/24/18 21:13 Dose: 50 mg - Labs Labs: 06/25/18 06:31 06/25/18 06:31 - Constitutional Appears: Well - Head Exam Head Exam: ATRAUMATIC, NORMOCEPHALIC - Eye Exam Eye Exam: EOMI, Normal appearance - ENT Exam ENT Exam: Mucous Membranes Moist - Respiratory Exam Respiratory Exam: Clear to Ausculation Bilateral, NORMAL BREATHING PATTERN. absent: Rales, Rhonchi - Cardiovascular Exam Cardiovascular Exam: REGULAR RHYTHM, +S1, +S2. absent: JVD - GI/Abdominal Exam GI & Abdominal Exam: Soft, Normal Bowel Sounds - Extremities Exam Extremities Exam: Normal Inspection. absent: Pedal Edema - Psychiatric Exam Psychiatric exam: Anxious Assessment and Plan - Assessment and Plan (Free Text) Assessment: 42 year old male with PMHx of COPD, HTN, schizophrenia, bipolar d/o and TIA presenting with COPD exacerbation. Plan: 1. COPD exacerbation Continue with IV steroids and duonebs Continue Breo treatment Will DC IV steroids in AM PFT as outpatient PGY-1 Odalis Conti Case d/w Dr. Nash <Peter Nash S - Last Filed: 06/27/18 15:31> Objective - Vital Signs/Intake and Output Vital Signs (last 24 hours): Temp Pulse Resp BP Pulse Ox 98.2 F 75 20 160/110 H 97 06/27/18 07:10 06/27/18 07:10 06/27/18 07:10 06/27/18 07:10 06/27/18 07:10 Intake and Output: 06/27/18 06/27/18 06:59 18:59 Intake Total 300 700 Balance 300 700 - Medications Medications: Current Medications Albuterol/Ipratropium (Duoneb 3 Mg/0.5 Mg (3 Ml) Ud) 3 ml INH RQ4 PRN PRN Reason: Shortness of Breath Last Admin: 06/26/18 21:23 Dose: 3 ml Amlodipine Besylate (Norvasc) 10 mg PO DAILY [facility] Last Admin: 06/27/18 09:32 Dose: 10 mg Emollient Ointment (Vaseline Oint) 5 gm TOP BID PRN PRN Reason: Dry skin Last Admin: 06/23/18 22:00 Dose: 5 gm Enoxaparin Sodium (Lovenox) 40 mg SC DAILY [facility] Last Admin: 06/27/18 09:32 Dose: Not Given Escitalopram Oxalate (Lexapro) 5 mg PO DAILY [facility] Last Admin: 06/27/18 09:33 Dose: 5 mg Famotidine (Pepcid) 20 mg PO DAILY [facility] Last Admin: 06/27/18 09:32 Dose: 20 mg Fluticasone/Vilanterol (Breo Ellipta 100-25 Mcg Inh) 1 puff INH RQD [facility] Last Admin: 06/27/18 08:20 Dose: 1 puff Hydrochlorothiazide (Hydrodiuril) 25 mg PO BID [facility] Last Admin: 06/27/18 09:31 Dose: 25 mg Lisinopril (Zestril) 20 mg PO DAILY [facility] Last Admin: 06/27/18 09:32 Dose: 20 mg Trazodone HCl (Desyrel) 50 mg PO HS [facility] Last Admin: 06/26/18 21:28 Dose: 50 mg - Labs Labs: 06/27/18 06:53 06/27/18 06:53 Attending/Attestation - Attestation I have personally seen and examined this patient.: Yes I have fully participated in the care of the patient.: Yes I have reviewed all pertinent clinical information, including history, physical exam and plan: Yes
[2018-06-25] MEDS: Fluticasone-Vilanterol 100/25mcg Diskus INH SCH (11:20)
[2018-06-26 07:04] LABS: BASO % 0.4 % (0.0-2.0); HEMOGLOBIN 15.3 g/dL (12.0-18.0); LYMPH # 1.1 K/uL (1.0-4.3); LYMPH % 13.2 % (20.0-40.0); MEAN CELL VOLUME 90.5 fL (80.0-94.0); MEAN CORPUSCULAR HEMOGLOBIN 31.1 pg (27.0-31.0); MEAN CORPUSCULAR HGB CONC 34.4 g/dL (33.0-37.0); MEAN PLATELET VOLUME 10.7 fL (7.2-11.7); MONO # 0.4 K/uL (0.0-0.8); MONO % 4.2 % (0.0-10.0); NEUT % 82.2 % (50.0-75.0); RBC 4.91 Mil/uL (4.40-5.90); RED CELL DISTRIBUTION WIDTH 15.5 % (11.5-14.5); WHITE BLOOD COUNT 8.5 K/uL (4.8-10.8)
[2018-06-26 07:05] LABS: BLOOD UREA NITROGEN 22 mg/dL (9-20); CALCIUM 10.4 mg/dl (8.6-10.4); GFR NON-AFRICAN AMERICAN > 60
--- NOTE | 2018-06-26 07:22 | CP.PCM.PN ---
Subjective - Date & Time of Evaluation Date of Evaluation: 06/26/18 Time of Evaluation: 08:00 - Subjective Subjective: PGY-[address] Jose Patient seen and examined at bedside. States he almost fell today while in the bathroom, says his legs are weak. Admits to sweating, Patient denies fever, chills, chest pain, shortness of breath, abdominal pain, n/v/d/c or urinary symptoms. Patient seen using a walker in hallway. Patient asked for paperwork from section 8 housing to be filled. Objective - Vital Signs/Intake and Output Vital Signs (last 24 hours): Temp Pulse Resp BP Pulse Ox 98.1 F 67 20 150/95 H 98 06/26/18 00:00 06/26/18 00:00 06/26/18 00:00 06/26/18 00:00 06/26/18 00:00 Intake and Output: 06/26/18 06/26/18 06:59 18:59 Intake Total 400 Balance 400 - Medications Medications: Current Medications Albuterol/Ipratropium (Duoneb 3 Mg/0.5 Mg (3 Ml) Ud) 3 ml INH RQ4 PRN PRN Reason: Shortness of Breath Last Admin: 06/23/18 21:52 Dose: 3 ml Amlodipine Besylate (Norvasc) 10 mg PO DAILY [facility] Last Admin: 06/25/18 09:47 Dose: 10 mg Emollient Ointment (Vaseline Oint) 5 gm TOP BID PRN PRN Reason: Dry skin Last Admin: 06/23/18 22:00 Dose: 5 gm Enoxaparin Sodium (Lovenox) 40 mg SC DAILY [facility] Last Admin: 06/25/18 09:47 Dose: Not Given Escitalopram Oxalate (Lexapro) 5 mg PO DAILY [facility] Last Admin: 06/25/18 09:47 Dose: 5 mg Famotidine (Pepcid) 20 mg PO DAILY [facility] Last Admin: 06/25/18 09:47 Dose: 20 mg Fluticasone/Vilanterol (Breo Ellipta 100-25 Mcg Inh) 1 puff INH RQD [facility] Last Admin: 06/25/18 11:20 Dose: 1 puff Hydrochlorothiazide (Hydrodiuril) 25 mg PO BID [facility] Last Admin: 06/25/18 18:06 Dose: 25 mg Lisinopril (Zestril) 5 mg PO DAILY [facility] Methylprednisolone (Solu-Medrol) 40 mg IVP Q12 [facility] Last Admin: 06/25/18 21:24 Dose: 40 mg Trazodone HCl (Desyrel) 50 mg PO HS [facility] Last Admin: 06/25/18 21:24 Dose: 50 mg - Labs Labs: 06/26/18 06:44 06/26/18 06:44 - Constitutional Appears: Non-toxic, No Acute Distress - Head Exam Head Exam: ATRAUMATIC, NORMAL INSPECTION, NORMOCEPHALIC - Eye Exam Eye Exam: Normal appearance - Respiratory Exam Respiratory Exam: Clear to Ausculation Bilateral, NORMAL BREATHING PATTERN. absent: Respiratory Distress - Cardiovascular Exam Cardiovascular Exam: REGULAR RHYTHM, +S1, +S2 - GI/Abdominal Exam GI & Abdominal Exam: Soft, Normal Bowel Sounds. absent: Distended, Tenderness - Extremities Exam Extremities Exam: Full ROM, Normal Inspection - Back Exam Back Exam: NORMAL INSPECTION - Neurological Exam Neurological Exam: Alert, Awake, Oriented x3 - Psychiatric Exam Psychiatric exam: Normal Affect, Normal Mood - Skin Skin Exam: Dry, Normal Color, Warm Assessment and Plan - Assessment and Plan (Free Text) Assessment: 42 year old male with PMhx of HTN, COPD, bipolar, schizophrenia admitted for acute COPD exacerbation, resolving. Pending [facility] placement Plan: COPD exacerbation - 97-98 % O2 in RA - Breo ellipta 100-25 1 puff daily - duonebs Q4H PRN - D/C IV steroids as per pulm - F/u pulm recs - continue duonebs, breo ellipta, PFTs as outpt. History of HTN - amlodipine 10 mg PO daily - HCTZ 25 mg PO BID - Lisinopril increased to 20 mg PO daily as BP continues to be elevated 160s - monitor BP Hx of Bipolar disease Hx of Schizophrenia - patient non compliant with psychiatric medications previously - resume medications trazodone 50 mg PO HS, lexapro 5 mg PO daily PPx - DVT: lovenox 40 mg SC daily - [facility] Dispo: SW working for [facility] placement. Pending insurance authorization for [facility] placement at this time, will continue to follow up with SW/systems manager. Paperwork filled for section 8 housing, returned to patient, copy in chart. plan d/w Dr Rebeca Carias, PGY-1
--- NOTE | 2018-06-26 07:26 | CP.PCM.PN ---
<Odalis Conti - Last Filed: 06/26/18 14:10> Subjective - Date & Time of Evaluation Date of Evaluation: 06/26/18 Time of Evaluation: 07:23 - Subjective Subjective: Pulm Consult note for Dr. Nash Patient seen and examined at bedside after walking comfortably through hallway with walker which was raised to accommodate his height. Again appears to be far less short of breath today. He states he did not need another breathing treatment overnight Patient states he feels better than yesterday. Patient continues to states need for social work help to find a place for him to stay on the ground floor as he can not continue to climb the stairs to his 4th floor apartment. Patient denies chest pain, fever, nausea, vomiting, diarrhea, or constipation. ROS: as listed in HPI, otherwise negative Objective - Vital Signs/Intake and Output Vital Signs (last 24 hours): Temp Pulse Resp BP Pulse Ox 98.1 F 67 20 150/95 H 98 06/26/18 00:00 06/26/18 00:00 06/26/18 00:00 06/26/18 00:00 06/26/18 00:00 Intake and Output: 06/26/18 06/26/18 06:59 18:59 Intake Total 400 Balance 400 - Medications Medications: Current Medications Albuterol/Ipratropium (Duoneb 3 Mg/0.5 Mg (3 Ml) Ud) 3 ml INH RQ4 PRN PRN Reason: Shortness of Breath Last Admin: 06/23/18 21:52 Dose: 3 ml Amlodipine Besylate (Norvasc) 10 mg PO DAILY [facility] Last Admin: 06/25/18 09:47 Dose: 10 mg Emollient Ointment (Vaseline Oint) 5 gm TOP BID PRN PRN Reason: Dry skin Last Admin: 06/23/18 22:00 Dose: 5 gm Enoxaparin Sodium (Lovenox) 40 mg SC DAILY [facility] Last Admin: 06/25/18 09:47 Dose: Not Given Escitalopram Oxalate (Lexapro) 5 mg PO DAILY [facility] Last Admin: 06/25/18 09:47 Dose: 5 mg Famotidine (Pepcid) 20 mg PO DAILY [facility] Last Admin: 06/25/18 09:47 Dose: 20 mg Fluticasone/Vilanterol (Breo Ellipta 100-25 Mcg Inh) 1 puff INH RQD [facility] Last Admin: 06/25/18 11:20 Dose: 1 puff Hydrochlorothiazide (Hydrodiuril) 25 mg PO BID [facility] Last Admin: 06/25/18 18:06 Dose: 25 mg Lisinopril (Zestril) 5 mg PO DAILY [facility] Methylprednisolone (Solu-Medrol) 40 mg IVP Q12 [facility] Last Admin: 06/25/18 21:24 Dose: 40 mg Trazodone HCl (Desyrel) 50 mg PO HS [facility] Last Admin: 06/25/18 21:24 Dose: 50 mg - Labs Labs: 06/26/18 06:44 06/26/18 06:44 - Constitutional Appears: Well, Non-toxic - Head Exam Head Exam: ATRAUMATIC, NORMOCEPHALIC - Eye Exam Eye Exam: Normal appearance - ENT Exam ENT Exam: Mucous Membranes Moist - Respiratory Exam Respiratory Exam: Clear to Ausculation Bilateral, NORMAL BREATHING PATTERN. absent: Rales, Rhonchi, Wheezes - Cardiovascular Exam Cardiovascular Exam: REGULAR RHYTHM - GI/Abdominal Exam GI & Abdominal Exam: Soft, Normal Bowel Sounds - Extremities Exam Extremities Exam: Normal Inspection. absent: Pedal Edema - Psychiatric Exam Psychiatric exam: Normal Affect, Normal Mood Assessment and Plan - Assessment and Plan (Free Text) Assessment: 42 year old male with PMHx of COPD, HTN, schizophrenia, bipolar d/o and TIA presenting with COPD exacerbation. Plan: 1. COPD exacerbation D/c IV steroids Continue duonebs Continue Breo treatment PFT as outpatient <Peter Nash - Last Filed: 06/27/18 15:31> Objective - Vital Signs/Intake and Output Vital Signs (last 24 hours): Temp Pulse Resp BP Pulse Ox 98.2 F 75 20 160/110 H 97 06/27/18 07:10 06/27/18 07:10 06/27/18 07:10 06/27/18 07:10 06/27/18 07:10 Intake and Output: 06/27/18 06/27/18 06:59 18:59 Intake Total 300 700 Balance 300 700 - Medications Medications: Current Medications Albuterol/Ipratropium (Duoneb 3 Mg/0.5 Mg (3 Ml) Ud) 3 ml INH RQ4 PRN PRN Reason: Shortness of Breath Last Admin: 06/26/18 21:23 Dose: 3 ml Amlodipine Besylate (Norvasc) 10 mg PO DAILY [facility] Last Admin: 06/27/18 09:32 Dose: 10 mg Emollient Ointment (Vaseline Oint) 5 gm TOP BID PRN PRN Reason: Dry skin Last Admin: 06/23/18 22:00 Dose: 5 gm Enoxaparin Sodium (Lovenox) 40 mg SC DAILY [facility] Last Admin: 06/27/18 09:32 Dose: Not Given Escitalopram Oxalate (Lexapro) 5 mg PO DAILY [facility] Last Admin: 06/27/18 09:33 Dose: 5 mg Famotidine (Pepcid) 20 mg PO DAILY [facility] Last Admin: 06/27/18 09:32 Dose: 20 mg Fluticasone/Vilanterol (Breo Ellipta 100-25 Mcg Inh) 1 puff INH RQD [facility] Last Admin: 06/27/18 08:20 Dose: 1 puff Hydrochlorothiazide (Hydrodiuril) 25 mg PO BID [facility] Last Admin: 06/27/18 09:31 Dose: 25 mg Lisinopril (Zestril) 20 mg PO DAILY [facility] Last Admin: 06/27/18 09:32 Dose: 20 mg Trazodone HCl (Desyrel) 50 mg PO HS [facility] Last Admin: 06/26/18 21:28 Dose: 50 mg - Labs Labs: 06/27/18 06:53 06/27/18 06:53 Attending/Attestation - Attestation I have personally seen and examined this patient.: Yes I have fully participated in the care of the patient.: Yes I have reviewed all pertinent clinical information, including history, physical exam and plan: Yes
[2018-06-26] MEDS: Fluticasone-Vilanterol 100/25mcg Diskus INH SCH (08:52)
[2018-06-26] MEDS: MethylPREDNISolone 40 mg Vial IVP SCH (10:11)
[2018-06-26] MEDS: Enoxaparin 40 mg Syringe SC SCH (10:11)
[2018-06-26] MEDS: Albuterol-Ipratrop 3 mg / 0.5 (3 ml) UD INH PRN (21:23)
[2018-06-27 07:20] LABS: BASO % 0.3 % (0.0-2.0); EOS % 0.1 % (0.0-4.0); HEMOGLOBIN 15.1 g/dL (12.0-18.0); LYMPH # 2.7 K/uL (1.0-4.3); LYMPH % 34.8 % (20.0-40.0); MEAN CELL VOLUME 90.1 fL (80.0-94.0); MEAN CORPUSCULAR HEMOGLOBIN 30.9 pg (27.0-31.0); MEAN CORPUSCULAR HGB CONC 34.3 g/dL (33.0-37.0); MEAN PLATELET VOLUME 9.9 fL (7.2-11.7); MONO # 0.8 K/uL (0.0-0.8); NEUT # 4.3 K/uL (1.8-7.0); NEUT % 54.8 % (50.0-75.0); NRBC % 0.1 % (0.0-2.0); RBC 4.88 Mil/uL (4.40-5.90); RED CELL DISTRIBUTION WIDTH 15.8 % (11.5-14.5); WHITE BLOOD COUNT 7.8 K/uL (4.8-10.8)
[2018-06-27 07:23] LABS: BLOOD UREA NITROGEN 26 mg/dL (9-20); CALCIUM 9.7 mg/dl (8.6-10.4); GFR NON-AFRICAN AMERICAN > 60
[2018-06-27] MEDS: Fluticasone-Vilanterol 100/25mcg Diskus INH SCH (08:20)
[2018-06-27] MEDS: Enoxaparin 40 mg Syringe SC SCH (09:32)
[2018-06-27] MEDS ORDERED: Potassium Chloride 20 mEq ER Tab PO STA (09:39)
--- NOTE | 2018-06-27 09:45 | CP.PCM.PN ---
Subjective - Date & Time of Evaluation Date of Evaluation: 06/27/18 Time of Evaluation: 09:43 - Subjective Subjective: Pulm Consult note for Dr. Nash Patient seen and examined at bedside. Short of breath and cough continues to improve although still present. He did not require a breathing treatment overnight He states he nearly fell yesterday so has been in bed since Patient states he feels better than yesterday. Patient states he has made progress with SW on finding a first floor home upon discharge Patient denies chest pain, fever, nausea, vomiting, diarrhea, or constipation. ROS: as listed in HPI, otherwise negative Objective - Vital Signs/Intake and Output Vital Signs (last 24 hours): Temp Pulse Resp BP Pulse Ox 98.2 F 75 20 160/110 H 97 06/27/18 07:10 06/27/18 07:10 06/27/18 07:10 06/27/18 07:10 06/27/18 07:10 Intake and Output: 06/27/18 06/27/18 06:59 18:59 Intake Total 300 Balance 300 - Medications Medications: Current Medications Albuterol/Ipratropium (Duoneb 3 Mg/0.5 Mg (3 Ml) Ud) 3 ml INH RQ4 PRN PRN Reason: Shortness of Breath Last Admin: 06/26/18 21:23 Dose: 3 ml Amlodipine Besylate (Norvasc) 10 mg PO DAILY [facility] Last Admin: 06/27/18 09:32 Dose: 10 mg Emollient Ointment (Vaseline Oint) 5 gm TOP BID PRN PRN Reason: Dry skin Last Admin: 06/23/18 22:00 Dose: 5 gm Enoxaparin Sodium (Lovenox) 40 mg SC DAILY [facility] Last Admin: 06/27/18 09:32 Dose: Not Given Escitalopram Oxalate (Lexapro) 5 mg PO DAILY [facility] Last Admin: 06/27/18 09:33 Dose: 5 mg Famotidine (Pepcid) 20 mg PO DAILY [facility] Last Admin: 06/27/18 09:32 Dose: 20 mg Fluticasone/Vilanterol (Breo Ellipta 100-25 Mcg Inh) 1 puff INH RQD [facility] Last Admin: 06/27/18 08:20 Dose: 1 puff Hydrochlorothiazide (Hydrodiuril) 25 mg PO BID [facility] Last Admin: 06/27/18 09:31 Dose: 25 mg Lisinopril (Zestril) 20 mg PO DAILY [facility] Last Admin: 06/27/18 09:32 Dose: 20 mg Trazodone HCl (Desyrel) 50 mg PO HS [facility] Last Admin: 06/26/18 21:28 Dose: 50 mg - Labs Labs: 06/27/18 06:53 06/27/18 06:53 - Constitutional Appears: Well, Non-toxic, No Acute Distress - Head Exam Head Exam: ATRAUMATIC, NORMOCEPHALIC - Eye Exam Eye Exam: Normal appearance - ENT Exam ENT Exam: Mucous Membranes Moist - Respiratory Exam Respiratory Exam: Clear to Ausculation Bilateral, NORMAL BREATHING PATTERN. absent: Rhonchi, Wheezes - Cardiovascular Exam Cardiovascular Exam: REGULAR RHYTHM, +S1, +S2 - GI/Abdominal Exam GI & Abdominal Exam: Soft, Normal Bowel Sounds - Extremities Exam Extremities Exam: Normal Inspection. absent: Calf Tenderness, Pedal Edema - Psychiatric Exam Psychiatric exam: Normal Affect, Normal Mood - Skin Skin Exam: Dry, Warm Assessment and Plan - Assessment and Plan (Free Text) Assessment: 42 year old male with PMHx of COPD, HTN, schizophrenia, bipolar d/o and TIA presenting with COPD exacerbation. Plan: 1. COPD exacerbation Continue duonebs Continue Breo treatment PFT as outpatient
--- NOTE | 2018-06-27 12:08 | CP.PCM.PN ---
Subjective - Date & Time of Evaluation Date of Evaluation: 06/27/18 Time of Evaluation: 12:05 - Subjective Subjective: Dr Jose Service- IM Pt s/e at bedside, complains of persistent SOB and cough, Pt is unable to tolerate extended physical exertion. Denies CP FC [place]. Objective - Vital Signs/Intake and Output Vital Signs (last 24 hours): Temp Pulse Resp BP Pulse Ox 98.2 F 75 20 160/110 H 97 06/27/18 07:10 06/27/18 07:10 06/27/18 07:10 06/27/18 07:10 06/27/18 07:10 Intake and Output: 06/27/18 06/27/18 06:59 18:59 Intake Total 300 Balance 300 - Medications Medications: Current Medications Albuterol/Ipratropium (Duoneb 3 Mg/0.5 Mg (3 Ml) Ud) 3 ml INH RQ4 PRN PRN Reason: Shortness of Breath Last Admin: 06/26/18 21:23 Dose: 3 ml Amlodipine Besylate (Norvasc) 10 mg PO DAILY [facility] Last Admin: 06/27/18 09:32 Dose: 10 mg Emollient Ointment (Vaseline Oint) 5 gm TOP BID PRN PRN Reason: Dry skin Last Admin: 06/23/18 22:00 Dose: 5 gm Enoxaparin Sodium (Lovenox) 40 mg SC DAILY [facility] Last Admin: 06/27/18 09:32 Dose: Not Given Escitalopram Oxalate (Lexapro) 5 mg PO DAILY [facility] Last Admin: 06/27/18 09:33 Dose: 5 mg Famotidine (Pepcid) 20 mg PO DAILY [facility] Last Admin: 06/27/18 09:32 Dose: 20 mg Fluticasone/Vilanterol (Breo Ellipta 100-25 Mcg Inh) 1 puff INH RQD [facility] Last Admin: 06/27/18 08:20 Dose: 1 puff Hydrochlorothiazide (Hydrodiuril) 25 mg PO BID [facility] Last Admin: 06/27/18 09:31 Dose: 25 mg Lisinopril (Zestril) 20 mg PO DAILY [facility] Last Admin: 06/27/18 09:32 Dose: 20 mg Trazodone HCl (Desyrel) 50 mg PO HS [facility] Last Admin: 04/11/19 21:28 Dose: 50 mg - Labs Labs: 06/27/18 06:53 06/27/18 06:53 - Additional Findings Additional findings: - Constitutional Appears: Non-toxic, No Acute Distress - Head Exam Head Exam: ATRAUMATIC, NORMAL INSPECTION, NORMOCEPHALIC - Eye Exam Eye Exam: Normal appearance - Respiratory Exam Respiratory Exam: Clear to Ausculation Bilateral, NORMAL BREATHING PATTERN. absent: Respiratory Distress - Cardiovascular Exam Cardiovascular Exam: REGULAR RHYTHM, +S1, +S2 - GI/Abdominal Exam GI & Abdominal Exam: Soft, Normal Bowel Sounds. absent: Distended, Tenderness - Extremities Exam Extremities Exam: Full ROM, Normal Inspection - Back Exam Back Exam: NORMAL INSPECTION - Neurological Exam Neurological Exam: Alert, Awake, Oriented x3 - Psychiatric Exam Psychiatric exam: Normal Affect, Normal Mood - Skin Skin Exam: Dry, Normal Color, Warm Assessment and Plan - Assessment and Plan (Free Text) Assessment: 42 year old male with PMhx of HTN, COPD, bipolar, schizophrenia admitted for acute COPD exacerbation, resolving. Pending [facility] placement Plan: COPD exacerbation - 97-98 % O2 in RA - Breo ellipta 100-25 1 puff daily - duonebs Q4H PRN - D/C IV steroids as per pulm - F/u pulm recs - continue duonebs, breo ellipta, PFTs as outpt. History of HTN - amlodipine 10 mg PO daily - HCTZ 25 mg PO BID - Lisinopril increased to 20 mg PO daily as BP continues to be elevated 160s - monitor BP Hx of Bipolar disease Hx of Schizophrenia - patient non compliant with psychiatric medications previously - resume medications trazodone 50 mg PO HS, lexapro 5 mg PO daily PPx - DVT: lovenox 40 mg SC daily - [facility] Dispo: SW working for [facility] placement. Pending insurance authorization for [facility] placement at this time, will continue to follow up with SW/associate product manager. Paperwork filled for section 8 housing, returned to patient, copy in chart. Pt brought in forms today plan d/w Dr Jose CK PGY-1
[2018-06-27] MEDS: Albuterol-Ipratrop 3 mg / 0.5 (3 ml) UD INH PRN (19:47)
--- NOTE | 2018-06-28 02:39 | CP.PCM.PN ---
Subjective - Date & Time of Evaluation Date of Evaluation: 06/28/18 Time of Evaluation: 05:00 - Subjective Subjective: PGY-[address] Jose Patient s/e at bedside, complained of epigastric and left lower quadrant discomfort, states it improved with pepcid given. continues to complaint of weakness in his legs and sweating. Denies fever, chills, chest pain, SOB, n/v/d/c or urinary symptoms. Objective - Vital Signs/Intake and Output Vital Signs (last 24 hours): Temp Pulse Resp BP Pulse Ox 97.9 F 94 H 20 148/96 H 96 06/27/18 15:00 06/27/18 15:00 06/27/18 15:00 06/27/18 15:00 06/27/18 15:00 Intake and Output: 06/27/18 06/28/18 18:59 06:59 Intake Total 700 600 Balance 700 600 - Medications Medications: Current Medications Albuterol/Ipratropium (Duoneb 3 Mg/0.5 Mg (3 Ml) Ud) 3 ml INH RQ4 PRN PRN Reason: Shortness of Breath Last Admin: 06/27/18 19:47 Dose: 3 ml Amlodipine Besylate (Norvasc) 10 mg PO DAILY [facility] Last Admin: 06/27/18 09:32 Dose: 10 mg Emollient Ointment (Vaseline Oint) 5 gm TOP BID PRN PRN Reason: Dry skin Last Admin: 06/23/18 22:00 Dose: 5 gm Enoxaparin Sodium (Lovenox) 40 mg SC DAILY [facility] Last Admin: 06/27/18 09:32 Dose: Not Given Escitalopram Oxalate (Lexapro) 5 mg PO DAILY [facility] Last Admin: 06/27/18 09:33 Dose: 5 mg Famotidine (Pepcid) 20 mg PO DAILY [facility] Last Admin: 06/27/18 09:32 Dose: 20 mg Fluticasone/Vilanterol (Breo Ellipta 100-25 Mcg Inh) 1 puff INH RQD [facility] Last Admin: 06/27/18 08:20 Dose: 1 puff Hydrochlorothiazide (Hydrodiuril) 25 mg PO BID [facility] Last Admin: 06/27/18 18:16 Dose: 25 mg Lisinopril (Zestril) 20 mg PO DAILY [facility] Last Admin: 06/27/18 09:32 Dose: 20 mg Trazodone HCl (Desyrel) 50 mg PO HS [facility] Last Admin: 06/27/18 21:16 Dose: 50 mg - Labs Labs: 06/27/18 06:53 06/27/18 06:53 - Constitutional Appears: Non-toxic, No Acute Distress - Head Exam Head Exam: ATRAUMATIC, NORMOCEPHALIC - Eye Exam Eye Exam: Normal appearance - ENT Exam ENT Exam: Mucous Membranes Moist - Respiratory Exam Respiratory Exam: Clear to Ausculation Bilateral, NORMAL BREATHING PATTERN. absent: Decreased Breath Sounds, Rales, Rhonchi, Wheezes - Cardiovascular Exam Cardiovascular Exam: REGULAR RHYTHM, +S1, +S2 - GI/Abdominal Exam GI & Abdominal Exam: Soft, Tenderness (epigastric tenderness with deep palpation ), Normal Bowel Sounds - Extremities Exam Extremities Exam: Full ROM, Normal Inspection - Neurological Exam Neurological Exam: Alert, Awake, Oriented x3 - Psychiatric Exam Psychiatric exam: Normal Affect, Normal Mood - Skin Skin Exam: Dry, Normal Color, Warm Assessment and Plan - Assessment and Plan (Free Text) Assessment: 42 year old male with PMhx of HTN, COPD, bipolar, schizophrenia admitted for acute COPD exacerbation, resolving. Pending [facility] placement Plan: COPD exacerbation - 97-98 % O2 in RA - Breo ellipta 100-25 1 puff daily - duonebs Q4H PRN - D/C IV steroids as per pulm - F/u pulm recs - continue duonebs, breo ellipta, PFTs as outpt. History of HTN - amlodipine 10 mg PO daily - HCTZ 25 mg PO BID - Lisinopril 20 mg PO daily - monitor BP - improved today 140s/80-90s Hx of Bipolar disease Hx of Schizophrenia - patient non compliant with psychiatric medications previously - resume medications trazodone 50 mg PO HS, lexapro 5 mg PO daily PPx - DVT: lovenox 40 mg SC daily - [facility] Dispo: SW working for [facility] placement. Pending insurance authorization for [facility] placement at this time, will continue to follow up with SW/fight manager. Paperwork filled for section 8 housing, returned to patient, copy in chart. Pt brought in forms today plan d/w Dr Rebeca Carias, PGY-1
[2018-06-28 06:46] LABS: BASO % 0.4 % (0.0-2.0); EOS # 0.1 K/uL (0.0-0.7); EOS % 1.6 % (0.0-4.0); HEMOGLOBIN 15.6 g/dL (12.0-18.0); LYMPH # 2.4 K/uL (1.0-4.3); LYMPH % 61.2 % (20.0-40.0); MEAN CELL VOLUME 89.8 fL (80.0-94.0); MEAN CORPUSCULAR HGB CONC 34.5 g/dL (33.0-37.0); MEAN PLATELET VOLUME 9.8 fL (7.2-11.7); MONO # 0.5 K/uL (0.0-0.8); MONO % 11.8 % (0.0-10.0); NRBC % 0.1 % (0.0-2.0); RBC 5.03 Mil/uL (4.40-5.90); RED CELL DISTRIBUTION WIDTH 15.4 % (11.5-14.5); WHITE BLOOD COUNT 3.9 K/uL (4.8-10.8)
[2018-06-28 06:58] LABS: BLOOD UREA NITROGEN 26 mg/dL (9-20); CALCIUM 9.5 mg/dl (8.6-10.4); GFR NON-AFRICAN AMERICAN > 60
[2018-06-28] MEDS ORDERED: Potassium Chloride 20 mEq ER Tab PO ONE ×2 (08:30→10:00)
[2018-06-28] MEDS: Fluticasone-Vilanterol 100/25mcg Diskus INH SCH (08:37)
[2018-06-28] MEDS: Enoxaparin 40 mg Syringe SC SCH (10:26)
--- NOTE | 2018-06-28 19:59 | CARD ---
APPROVED REPORT Date of service: 06/23/2018 EKG Measurement Heart [id number] <Conclusion> Sinus rhythm with sinus arrhythmia with 1st degree AV block Abnormal ECG
--- NOTE | 2018-06-29 00:40 | CP.PCM.PN ---
Subjective - Date & Time of Evaluation Date of Evaluation: 06/29/18 Time of Evaluation: 05:00 - Subjective Subjective: PGY-[address] Jose Patient is seen and examined at bedside. Patient states feeling very hot and uncomfortable, admits to sweating at night time, continue to complain of weakness in legs, denies any falls, uses walker to ambulate. denies shortness of breath. Denies fever, chills, chest pain, cough, abdominal pain, n/v/d/c or urinary symptoms. Objective - Vital Signs/Intake and Output Vital Signs (last 24 hours): Temp Pulse Resp BP Pulse Ox 98.5 F 71 20 126/92 H 97 06/28/18 16:00 06/28/18 16:00 06/28/18 16:00 06/28/18 16:00 06/28/18 16:00 Intake and Output: 06/28/18 06/29/18 18:59 06:59 Intake Total 600 550 Balance 600 550 - Medications Medications: Current Medications Albuterol/Ipratropium (Duoneb 3 Mg/0.5 Mg (3 Ml) Ud) 3 ml INH RQ4 PRN PRN Reason: Shortness of Breath Last Admin: 06/27/18 19:47 Dose: 3 ml Amlodipine Besylate (Norvasc) 10 mg PO DAILY [facility] Last Admin: 06/28/18 10:25 Dose: 10 mg Emollient Ointment (Vaseline Oint) 5 gm TOP BID PRN PRN Reason: Dry skin Last Admin: 06/23/18 22:00 Dose: 5 gm Enoxaparin Sodium (Lovenox) 40 mg SC DAILY [facility] Last Admin: 06/28/18 10:26 Dose: Not Given Escitalopram Oxalate (Lexapro) 5 mg PO DAILY [facility] Last Admin: 06/28/18 10:25 Dose: 5 mg Famotidine (Pepcid) 20 mg PO DAILY [facility] Last Admin: 06/28/18 10:26 Dose: 20 mg Fluticasone/Vilanterol (Breo Ellipta 100-25 Mcg Inh) 1 puff INH RQD [facility] Last Admin: 06/28/18 08:37 Dose: 1 puff Hydrochlorothiazide (Hydrodiuril) 25 mg PO BID [facility] Last Admin: 06/28/18 17:38 Dose: 25 mg Lisinopril (Zestril) 20 mg PO DAILY [facility] Last Admin: 06/28/18 10:26 Dose: 20 mg Trazodone HCl (Desyrel) 50 mg PO HS [facility] Last Admin: 06/28/18 21:42 Dose: 50 mg - Labs Labs: 06/28/18 06:28 06/28/18 06:28 - Constitutional Appears: Non-toxic, No Acute Distress - Head Exam Head Exam: ATRAUMATIC, NORMOCEPHALIC - Eye Exam Eye Exam: EOMI, Normal appearance - ENT Exam ENT Exam: Mucous Membranes Moist, Normal Exam - Neck Exam Neck Exam: Normal Inspection - Respiratory Exam Respiratory Exam: Clear to Ausculation Bilateral, NORMAL BREATHING PATTERN. absent: Rales, Rhonchi, Wheezes, Respiratory Distress - Cardiovascular Exam Cardiovascular Exam: REGULAR RHYTHM, +S1, +S2 - GI/Abdominal Exam GI & Abdominal Exam: Soft, Normal Bowel Sounds. absent: Distended, Tenderness - Extremities Exam Extremities Exam: Normal Inspection - Back Exam Back Exam: NORMAL INSPECTION - Neurological Exam Neurological Exam: Alert, Awake, Oriented x3 - Psychiatric Exam Psychiatric exam: Normal Affect, Normal Mood - Skin Skin Exam: Dry, Normal Color, Warm Assessment and Plan - Assessment and Plan (Free Text) Assessment: 42 year old male with PMhx of HTN, COPD, bipolar, schizophrenia admitted for acute COPD exacerbation, resolving. Pending [facility] placement Plan: COPD exacerbation - 97-98% RA - Breo ellipta 100-25 1 puff daily - duonebs Q4H PRN - F/u pulm recs - Dr Nash - continue duonebs, breo ellipta, PFTs as outpt. History of HTN - amlodipine 10 mg PO daily - HCTZ 25 mg PO BID - Lisinopril 20 mg PO daily - monitor BP Hx of Bipolar disease Hx of Schizophrenia - patient non compliant with psychiatric medications previously - resume medications trazodone 50 mg PO HS, lexapro 5 mg PO daily PPx - DVT: lovenox 40 mg SC daily - Pepcid 20mg PO QD - [facility]HD - tylenol x 1 time for back pain dispo: pending [facility] placement
[2018-06-29] MEDS: Fluticasone-Vilanterol 100/25mcg Diskus INH SCH (07:44)
[2018-06-29 09:13] LABS: BASO % 0.3 % (0.0-2.0); EOS # 0.2 K/uL (0.0-0.7); EOS % 3.7 % (0.0-4.0); HEMOGLOBIN 16.5 g/dL (12.0-18.0); LYMPH # 2.7 K/uL (1.0-4.3); LYMPH % 60.9 % (20.0-40.0); MEAN CELL VOLUME 89.3 fL (80.0-94.0); MEAN CORPUSCULAR HEMOGLOBIN 31.4 pg (27.0-31.0); MEAN CORPUSCULAR HGB CONC 35.2 g/dL (33.0-37.0); MEAN PLATELET VOLUME 10.1 fL (7.2-11.7); MONO # 0.4 K/uL (0.0-0.8); MONO % 9.2 % (0.0-10.0); NEUT # 1.1 K/uL (1.8-7.0); NEUT % 25.9 % (50.0-75.0); NRBC % 0.1 % (0.0-2.0); RBC 5.25 Mil/uL (4.40-5.90); RED CELL DISTRIBUTION WIDTH 15.2 % (11.5-14.5); WHITE BLOOD COUNT 4.4 K/uL (4.8-10.8)
[2018-06-29] MEDS: Enoxaparin 40 mg Syringe SC SCH (09:29)
[2018-06-29 09:32] LABS: ALB/GLOB RATIO 1.6 (1.0-2.1); ALBUMIN 4.9 g/dL (3.5-5.0); ALT/SGPT 7 U/L (21-72); AST/SGOT 18 U/L (17-59); BLOOD UREA NITROGEN 23 mg/dL (9-20); GFR NON-AFRICAN AMERICAN > 60
[2018-06-29] MEDS ORDERED: Potassium Chloride 20 mEq ER Tab PO ONE (10:29)
[2018-06-30] MEDS: Fluticasone-Vilanterol 100/25mcg Diskus INH SCH (07:35)
--- NOTE | 2018-06-30 07:51 | CP.PCM.PN ---
Subjective - Date & Time of Evaluation Date of Evaluation: 06/30/18 Time of Evaluation: 07:15 - Subjective Subjective: Medicine progress note for Dr. Jose. Patient seen and examined at bedside. Patient reports left sided back pain from lumbar region, radiating to lower extremity. Reports it as a achy pain worse with position, worse while laying down, for the past day. Denies headaches, dizziness, chest pain, SOB, abdominal pain, dysuria, hematuria, constipation. Patient reports breathing difficulty is resolved and feels good. Pt reports the need for a wheelchair to ambulate around. Objective - Vital Signs/Intake and Output Vital Signs (last 24 hours): Temp Pulse Resp BP Pulse Ox 98.3 F 85 20 136/95 H 98 06/30/18 00:00 06/30/18 00:00 06/30/18 00:00 06/30/18 00:00 06/30/18 00:00 Intake and Output: 06/30/18 06/30/18 06:59 18:59 Intake Total 500 Balance 500 - Medications Medications: Current Medications Albuterol/Ipratropium (Duoneb 3 Mg/0.5 Mg (3 Ml) Ud) 3 ml INH RQ4 PRN PRN Reason: Shortness of Breath Last Admin: 06/27/18 19:47 Dose: 3 ml Amlodipine Besylate (Norvasc) 10 mg PO DAILY [facility] Last Admin: 06/29/18 09:30 Dose: 10 mg Emollient Ointment (Vaseline Oint) 5 gm TOP BID PRN PRN Reason: Dry skin Last Admin: 06/23/18 22:00 Dose: 5 gm Enoxaparin Sodium (Lovenox) 40 mg SC DAILY [facility] Last Admin: 06/29/18 09:29 Dose: Not Given Escitalopram Oxalate (Lexapro) 5 mg PO DAILY [facility] Last Admin: 06/29/18 09:30 Dose: 5 mg Famotidine (Pepcid) 20 mg PO DAILY [facility] Last Admin: 06/29/18 09:30 Dose: 20 mg Fluticasone/Vilanterol (Breo Ellipta 100-25 Mcg Inh) 1 puff INH RQD [facility] Last Admin: 06/29/18 07:44 Dose: 1 puff Hydrochlorothiazide (Hydrodiuril) 25 mg PO BID [facility] Last Admin: 06/29/18 17:35 Dose: 25 mg Lisinopril (Zestril) 20 mg PO DAILY [facility] Last Admin: 06/29/18 09:29 Dose: 20 mg Trazodone HCl (Desyrel) 50 mg PO HS [facility] Last Admin: 06/29/18 21:21 Dose: 50 mg - Labs Labs: 06/29/18 08:55 06/29/18 08:55 - Constitutional Appears: Non-toxic, No Acute Distress - Head Exam Head Exam: NORMAL INSPECTION - Eye Exam Eye Exam: EOMI, Normal appearance - ENT Exam ENT Exam: Mucous Membranes Moist - Respiratory Exam Respiratory Exam: Clear to Ausculation Bilateral, NORMAL BREATHING PATTERN. absent: Rales, Rhonchi, Wheezes - Cardiovascular Exam Cardiovascular Exam: +S1, +S2. absent: Murmur - GI/Abdominal Exam GI & Abdominal Exam: Soft, Normal Bowel Sounds. absent: Distended, Firm, Guarding - Extremities Exam Extremities Exam: Full ROM. absent: Calf Tenderness, Pedal Edema - Back Exam Back Exam: tenderness. absent: CVA tenderness (L), CVA tenderness (R), muscle spasm Additional comments: reported tenderness on palpation on left side, no lesions, abrasions in area - Neurological Exam Neurological Exam: Alert, Awake, Oriented x3 - Psychiatric Exam Psychiatric exam: Anxious - Skin Skin Exam: Dry, Normal Color, Warm Assessment and Plan - Assessment and Plan (Free Text) Assessment: 42 year old male with PMhx of HTN, COPD, bipolar, schizophrenia admitted for [facility] [place] COPD exacerbation, resolving. Pending [facility] placement Plan: COPD exacerbation - 97-98% RA - Breo ellipta 100-25 1 puff daily - duonebs Q4H PRN - F/u pulm recs - Dr Nash - continue duonebs, breo ellipta, PFTs as outpt. History of HTN - amlodipine 10 mg PO daily - HCTZ 25 mg PO BID - Lisinopril 20 mg PO daily - monitor BP Hx of Bipolar disease Hx of Schizophrenia - patient non compliant with psychiatric medications previously - resume medications trazodone 50 mg PO HS, lexapro 5 mg PO daily Back pain - 1 x toradol 15 mg IVP - continue to monitor PPx - DVT: lovenox 40 mg SC daily - Pepcid 20mg PO QD - HHD dispo: pending [facility] placement
[2018-06-30] MEDS ORDERED: Potassium Chloride 20 mEq ER Tab PO ONE ×2 (08:04→15:15)
--- NOTE | 2018-06-30 08:16 | CP.PCM.PN ---
Subjective - Date & Time of Evaluation Date of Evaluation: 06/30/18 Time of Evaluation: 08:15 - Subjective Subjective: Pulm Consult note for Dr. Nash Patient seen and examined at bedside. Short of breath and cough continues to improve although still present. He states he has not required a duoneb in many days. Patient states he feels better than yesterday. Patient states he has begun working with SW for [facility] placement as well as housing to avoid him having to climb to the 4th floor Patient denies chest pain, fever, nausea, vomiting, diarrhea, or constipation. ROS: as listed in HPI, otherwise negative Objective - Vital Signs/Intake and Output Vital Signs (last 24 hours): Temp Pulse Resp BP Pulse Ox 98.3 F 85 20 136/95 H 98 06/30/18 00:00 06/30/18 00:00 06/30/18 00:00 06/30/18 00:00 06/30/18 00:00 Intake and Output: 06/30/18 06/30/18 06:59 18:59 Intake Total 500 Balance 500 - Medications Medications: Current Medications Albuterol/Ipratropium (Duoneb 3 Mg/0.5 Mg (3 Ml) Ud) 3 ml INH RQ4 PRN PRN Reason: Shortness of Breath Last Admin: 06/27/18 19:47 Dose: 3 ml Amlodipine Besylate (Norvasc) 10 mg PO DAILY [facility] Last Admin: 06/29/18 09:30 Dose: 10 mg Emollient Ointment (Vaseline Oint) 5 gm TOP BID PRN PRN Reason: Dry skin Last Admin: 06/23/18 22:00 Dose: 5 gm Enoxaparin Sodium (Lovenox) 40 mg SC DAILY [facility] Last Admin: 06/29/18 09:29 Dose: Not Given Escitalopram Oxalate (Lexapro) 5 mg PO DAILY [facility] Last Admin: 06/29/18 09:30 Dose: 5 mg Famotidine (Pepcid) 20 mg PO DAILY [facility] Last Admin: 06/29/18 09:30 Dose: 20 mg Fluticasone/Vilanterol (Breo Ellipta 100-25 Mcg Inh) 1 puff INH RQD [facility] Last Admin: 06/29/18 07:44 Dose: 1 puff Hydrochlorothiazide (Hydrodiuril) 25 mg PO BID [facility] Last Admin: 06/29/18 17:35 Dose: 25 mg Lisinopril (Zestril) 20 mg PO DAILY [facility] Last Admin: 06/29/18 09:29 Dose: 20 mg Trazodone HCl (Desyrel) 50 mg PO HS [facility] Last Admin: 06/29/18 21:21 Dose: 50 mg - Labs Labs: 06/29/18 08:55 06/29/18 08:55 - Constitutional Appears: Well, Non-toxic - Head Exam Head Exam: ATRAUMATIC, NORMOCEPHALIC - Eye Exam Eye Exam: Normal appearance - ENT Exam ENT Exam: Mucous Membranes Moist - Respiratory Exam Respiratory Exam: Clear to Ausculation Bilateral, NORMAL BREATHING PATTERN. absent: Rales, Rhonchi, Wheezes - Cardiovascular Exam Cardiovascular Exam: REGULAR RHYTHM, +S1, +S2 - GI/Abdominal Exam GI & Abdominal Exam: Soft, Normal Bowel Sounds - Extremities Exam Extremities Exam: Normal Inspection. absent: Pedal Edema - Skin Skin Exam: Dry, Warm Assessment and Plan - Assessment and Plan (Free Text) Assessment: 42 year old male with PMHx of COPD, HTN, schizophrenia, bipolar d/o and TIA p resenting with COPD exacerbation. Plan: 1. COPD exacerbation Continue duonebs as needed Continue Breo treatment daily PFT as outpatient
[2018-06-30] MEDS: Enoxaparin 40 mg Syringe SC SCH (09:47)
[2018-06-30 13:51] LABS: BASO % 0.6 % (0.0-2.0); EOS # 0.3 K/uL (0.0-0.7); EOS % 5.1 % (0.0-4.0); HEMOGLOBIN 14.9 g/dL (12.0-18.0); LYMPH # 3.3 K/uL (1.0-4.3); LYMPH % 61.2 % (20.0-40.0); MEAN CELL VOLUME 87.9 fL (80.0-94.0); MEAN CORPUSCULAR HEMOGLOBIN 30.8 pg (27.0-31.0); MEAN PLATELET VOLUME 9.6 fL (7.2-11.7); MONO # 0.5 K/uL (0.0-0.8); MONO % 9.9 % (0.0-10.0); NEUT # 1.3 K/uL (1.8-7.0); NEUT % 23.2 % (50.0-75.0); NRBC % 0.1 % (0.0-2.0); RBC 4.85 Mil/uL (4.40-5.90); RED CELL DISTRIBUTION WIDTH 14.9 % (11.5-14.5); WHITE BLOOD COUNT 5.4 K/uL (4.8-10.8)
[2018-06-30 14:32] LABS: ALB/GLOB RATIO 1.7 (1.0-2.1); ALBUMIN 4.5 g/dL (3.5-5.0); ALT/SGPT 10 U/L (21-72); AST/SGOT 21 U/L (17-59); BLOOD UREA NITROGEN 25 mg/dL (9-20); CALCIUM 9.1 mg/dl (8.6-10.4); GFR NON-AFRICAN AMERICAN > 60
[2018-06-30] MEDS ORDERED: Sodium Chloride 0.9% 1,000 ML IV SCH (15:15)
[2018-06-30 20:50] LABS: BLOOD UREA NITROGEN 24 mg/dL (9-20); CALCIUM 9.4 mg/dl (8.6-10.4); GFR NON-AFRICAN AMERICAN > 60
--- NOTE | 2018-07-01 06:44 | CP.PCM.PN ---
Subjective - Date & Time of Evaluation Date of Evaluation: 07/01/18 Time of Evaluation: 07:10 - Subjective Subjective: Medicine progress note for Dr. Jose. Patient seen and examined at bedside. Patient reports continued left sided back pain from lumbar region, radiating to lower extremity. Reports it as a achy pain worse with position, worse while laying down, for the past day. Patient denies trauma. Patient sitting in wheelchair and rolling himself around the hospital Denies headaches, dizziness, chest pain, SOB, abdominal pain, dysuria, hematuria , constipation. Patient reports breathing difficulty is resolved and feels good. Pt reports the need for a wheelchair to ambulate around. Objective - Vital Signs/Intake and Output Vital Signs (last 24 hours): Temp Pulse Resp BP Pulse Ox 99.1 F 95 H 20 152/110 H 98 06/30/18 16:00 06/30/18 16:00 06/30/18 16:00 06/30/18 16:00 06/30/18 16:00 Intake and Output: 06/30/18 07/01/18 18:59 06:59 Intake Total 600 Balance 600 - Medications Medications: Current Medications Acetaminophen (Tylenol 325mg Tab) 650 mg PO Q6 PRN PRN Reason: Pain, moderate (4-7) Albuterol/Ipratropium (Duoneb 3 Mg/0.5 Mg (3 Ml) Ud) 3 ml INH RQ4 PRN PRN Reason: Shortness of Breath Last Admin: 06/27/18 19:47 Dose: 3 ml Amlodipine Besylate (Norvasc) 10 mg PO DAILY [facility] Last Admin: 06/30/18 09:44 Dose: 10 mg Emollient Ointment (Vaseline Oint) 5 gm TOP BID PRN PRN Reason: Dry skin Last Admin: 06/23/18 22:00 Dose: 5 gm Enoxaparin Sodium (Lovenox) 40 mg SC DAILY [facility] Last Admin: 06/30/18 09:47 Dose: Not Given Escitalopram Oxalate (Lexapro) 5 mg PO DAILY [facility] Last Admin: 06/30/18 09:44 Dose: 5 mg Famotidine (Pepcid) 20 mg PO DAILY [facility] Last Admin: 06/30/18 09:43 Dose: 20 mg Fluticasone/Vilanterol (Breo Ellipta 100-25 Mcg Inh) 1 puff INH RQD [facility] Last Admin: 06/30/18 07:35 Dose: 1 puff Hydrochlorothiazide (Hydrodiuril) 25 mg PO BID [facility] Last Admin: 06/30/18 09:44 Dose: 25 mg Lisinopril (Zestril) 30 mg PO DAILY [facility] Trazodone HCl (Desyrel) 50 mg PO HS [facility] Last Admin: 06/30/18 22:08 Dose: 50 mg - Labs Labs: 06/30/18 13:39 06/30/18 20:28 - Constitutional Appears: Non-toxic, No Acute Distress - Head Exam Head Exam: NORMAL INSPECTION - Eye Exam Eye Exam: EOMI, Normal appearance - ENT Exam ENT Exam: Mucous Membranes Moist - Respiratory Exam Respiratory Exam: Clear to Ausculation Bilateral, NORMAL BREATHING PATTERN. absent: Rales, Rhonchi, Wheezes - Cardiovascular Exam Cardiovascular Exam: +S1, +S2. absent: Murmur - GI/Abdominal Exam GI & Abdominal Exam: Soft, Normal Bowel Sounds. absent: Firm, Guarding, Rigid - Back Exam Back Exam: paraspinal tenderness. absent: CVA tenderness (L), CVA tenderness (R) Additional comments: near T10 on left side - Neurological Exam Neurological Exam: Alert, Awake, Oriented x3 - Psychiatric Exam Psychiatric exam: Normal Affect, Normal Mood - Skin Skin Exam: Dry, Intact, Normal Color, Warm Assessment and Plan - Assessment and Plan (Free Text) Assessment: 42 year old male with PMhx of HTN, COPD, bipolar, schizophrenia admitted for acute COPD exacerbation, resolving. Pending [facility] placement Plan: Hyponatremia - Na 119 on 06/30 - repeat 121 on 07/01 - SIADH vs HCTZ side effect - serum osm 260 - hold HCTZ - fluid restrict - increase AM lisinopril to 30 mg daily - continue to monitor COPD exacerbation - 97-98% RA - Breo ellipta 100-25 1 puff daily - dugodfreybs Q4H PRN - F/u pulm recs - Dr Nash - continue duonebs, breo ellipta, PFTs as outpt. History of HTN - amlodipine 10 mg PO daily - HCTZ 25 mg PO BID - held due to hyponatremia - Lisinopril 30 mg PO daily - monitor BP Hx of Bipolar disease Hx of Schizophrenia - patient non compliant with psychiatric medications previously - resume medications trazodone 50 mg PO HS, lexapro 5 mg PO daily Back pain - 1 x toradol 15 mg IVP - continue to monitor PPx - DVT: lovenox 40 mg SC daily - Pepcid 20mg PO QD - HHD dispo: pending [facility] placement will discuss with Dr. Jose.
[2018-07-01 07:00] LABS: BASO % 0.2 % (0.0-2.0); EOS # 0.1 K/uL (0.0-0.7); EOS % 2.7 % (0.0-4.0); HEMOGLOBIN 15.3 g/dL (12.0-18.0); LYMPH % 67.7 % (20.0-40.0); MEAN CELL VOLUME 88.8 fL (80.0-94.0); MEAN CORPUSCULAR HEMOGLOBIN 31.1 pg (27.0-31.0); MEAN PLATELET VOLUME 9.7 fL (7.2-11.7); MONO # 0.5 K/uL (0.0-0.8); MONO % 11.9 % (0.0-10.0); NEUT # 0.8 K/uL (1.8-7.0); NEUT % 17.5 % (50.0-75.0); NRBC % 0.1 % (0.0-2.0); RBC 4.91 Mil/uL (4.40-5.90); RED CELL DISTRIBUTION WIDTH 14.9 % (11.5-14.5); WHITE BLOOD COUNT 4.4 K/uL (4.8-10.8)
[2018-07-01 07:35] LABS: ALB/GLOB RATIO 1.8 (1.0-2.1); ALBUMIN 4.4 g/dL (3.5-5.0); ALT/SGPT 15 U/L (21-72); AST/SGOT 16 U/L (17-59); BLOOD UREA NITROGEN 20 mg/dL (9-20); CALCIUM 8.5 mg/dl (8.6-10.4); GFR NON-AFRICAN AMERICAN > 60
[2018-07-01] MEDS: Fluticasone-Vilanterol 100/25mcg Diskus INH SCH (07:51)
[2018-07-01] MEDS: Enoxaparin 40 mg Syringe SC SCH (10:42)
--- NOTE | 2018-07-01 11:04 | CP.PCM.PN ---
<Odalis Conti - Last Filed: 07/01/18 12:58> Subjective - Date & Time of Evaluation Date of Evaluation: 07/01/18 Time of Evaluation: 11:02 - Subjective Subjective: Pulm Consult note for Dr. Nash Patient seen and examined at bedside. Short of breath and cough continues to improve although still present. Patient's sodium has been down-trending at 121 today. Patient appears euvolemic. He states he only drinks a couple juices a day, denies drinking much free water at all. He denies any neurological symptoms. Patient states he continues to work with SW for [facility] placement as well as housing to avoid him having to climb to the 4th floor Patient denies chest pain, fever, nausea, vomiting, diarrhea, or constipation. ROS: as listed in HPI, otherwise negative Objective - Vital Signs/Intake and Output Vital Signs (last 24 hours): Temp Pulse Resp BP Pulse Ox 97.6 F 76 20 122/86 99 07/01/18 07:00 07/01/18 07:00 07/01/18 07:00 07/01/18 07:00 07/01/18 07:00 - Medications Medications: Current Medications Acetaminophen (Tylenol 325mg Tab) 650 mg PO Q6 PRN PRN Reason: Pain, moderate (4-7) Albuterol/Ipratropium (Duoneb 3 Mg/0.5 Mg (3 Ml) Ud) 3 ml INH RQ4 PRN PRN Reason: Shortness of Breath Last Admin: 06/27/18 19:47 Dose: 3 ml Amlodipine Besylate (Norvasc) 10 mg PO DAILY [facility] Last Admin: 07/01/18 10:41 Dose: 10 mg Emollient Ointment (Vaseline Oint) 5 gm TOP BID PRN PRN Reason: Dry skin Last Admin: 06/23/18 22:00 Dose: 5 gm Enoxaparin Sodium (Lovenox) 40 mg SC DAILY [facility] Last Admin: 07/01/18 10:42 Dose: 40 mg Escitalopram Oxalate (Lexapro) 5 mg PO DAILY [facility] Last Admin: 07/01/18 10:42 Dose: 5 mg Famotidine (Pepcid) 20 mg PO DAILY [facility] Last Admin: 07/01/18 10:41 Dose: 20 mg Fluticasone/Vilanterol (Breo Ellipta 100-25 Mcg Inh) 1 puff INH RQD [facility] Last Admin: 07/01/18 07:51 Dose: 1 puff Hydrochlorothiazide (Hydrodiuril) 25 mg PO BID [facility] Last Admin: 06/30/18 09:44 Dose: 25 mg Lisinopril (Zestril) 30 mg PO DAILY [facility] Last Admin: 07/01/18 10:41 Dose: 30 mg Trazodone HCl (Desyrel) 50 mg PO HS [facility] Last Admin: 06/30/18 22:08 Dose: 50 mg - Labs Labs: 07/01/18 06:46 07/01/18 06:46 - Constitutional Appears: Well, Non-toxic - Head Exam Head Exam: ATRAUMATIC, NORMOCEPHALIC - Eye Exam Eye Exam: Normal appearance Pupil Exam: NORMAL ACCOMODATION - ENT Exam ENT Exam: Mucous Membranes Moist, Normal Exam - Respiratory Exam Respiratory Exam: Clear to Ausculation Bilateral, NORMAL BREATHING PATTERN. absent: Rales, Rhonchi, Wheezes, Respiratory Distress - Cardiovascular Exam Cardiovascular Exam: REGULAR RHYTHM, +S1, +S2. absent: JVD, Rubs, Murmur - GI/Abdominal Exam GI & Abdominal Exam: Soft, Normal Bowel Sounds - Extremities Exam Extremities Exam: Normal Inspection (appears very thin). absent: Pedal Edema - Skin Skin Exam: Dry, Warm Assessment and Plan - Assessment and Plan (Free Text) Assessment: 42 year old male with PMHx of COPD, HTN, schizophrenia, bipolar d/o and TIA presenting with COPD exacerbation. Plan: A: COPD exacerbation hyponatremia P: Continue duonebs as needed Continue Breo treatment daily PFT as outpatient Continue hyponatremia workup and management as per primary team- SIADH vs Thiazide effect etiology <Peter Nash - Last Filed: 07/01/18 16:01> Objective - Vital Signs/Intake and Output Vital Signs (last 24 hours): Temp Pulse Resp BP Pulse Ox 97.6 F 76 20 122/86 99 07/01/18 07:00 07/01/18 07:00 07/01/18 07:00 07/01/18 07:00 07/01/18 07:00 - Medications Medications: Current Medications Acetaminophen (Tylenol 325mg Tab) 650 mg PO Q6 PRN PRN Reason: Pain, moderate (4-7) Albuterol/Ipratropium (Duoneb 3 Mg/0.5 Mg (3 Ml) Ud) 3 ml INH RQ4 PRN PRN Reason: Shortness of Breath Last Admin: 06/27/18 19:47 Dose: 3 ml Amlodipine Besylate (Norvasc) 10 mg PO DAILY [facility] Last Admin: 07/01/18 10:41 Dose: 10 mg Emollient Ointment (Vaseline Oint) 5 gm TOP BID PRN PRN Reason: Dry skin Last Admin: 06/23/18 22:00 Dose: 5 gm Enoxaparin Sodium (Lovenox) 40 mg SC DAILY [facility] Last Admin: 07/01/18 10:42 Dose: 40 mg Escitalopram Oxalate (Lexapro) 5 mg PO DAILY [facility] Last Admin: 07/01/18 10:42 Dose: 5 mg Famotidine (Pepcid) 20 mg PO DAILY [facility] Last Admin: 07/01/18 10:41 Dose: 20 mg Fluticasone/Vilanterol (Breo Ellipta 100-25 Mcg Inh) 1 puff INH RQD [facility] Last Admin: 07/01/18 07:51 Dose: 1 puff Hydrochlorothiazide (Hydrodiuril) 25 mg PO BID [facility] Last Admin: 06/30/18 09:44 Dose: 25 mg Lisinopril (Zestril) 30 mg PO DAILY [facility] Last Admin: 07/01/18 10:41 Dose: 30 mg Trazodone HCl (Desyrel) 50 mg PO HS [facility] Last Admin: 06/30/18 22:08 Dose: 50 mg - Labs Labs: 07/01/18 06:46 07/01/18 06:46 Attending/Attestation - Attestation I have personally seen and examined this patient.: Yes I have fully participated in the care of the patient.: Yes I have reviewed all pertinent clinical information, including history, physical exam and plan: Yes Notes (Text): 07/01/18 16:01 Patient seen and examined Complaining of dyspnea on exertion but otherwise feeling better Continue present treatment
[2018-07-02 01:52] VITALS: O2SAT 99
[2018-07-02 08:00] LABS: ALB/GLOB RATIO 1.8 (1.0-2.1); ALBUMIN 4.8 g/dL (3.5-5.0); ALT/SGPT 6 U/L (21-72); AST/SGOT 20 U/L (17-59); BLOOD UREA NITROGEN 16 mg/dL (9-20); CALCIUM 9.3 mg/dl (8.6-10.4); GFR NON-AFRICAN AMERICAN > 60
[2018-07-02] MEDS: Fluticasone-Vilanterol 100/25mcg Diskus INH SCH (08:58)
--- NOTE | 2018-07-02 09:10 | CP.PCM.PN ---
Subjective - Date & Time of Evaluation Date of Evaluation: 07/02/18 Time of Evaluation: 08:00 - Subjective Subjective: Medicine progress note for Dr. Jose. Patient seen and examined at bedside. Patient states he still has occasional leftsided back pain and stomach pain that is relieved with pepcid. Patient reports breathing is back to normal for him. Patient reports still reqiring wheelchair to ambulate. Denies headaches, vision changes, chest pain, SOB, nausea, vomitting Objective - Vital Signs/Intake and Output Vital Signs (last 24 hours): Temp Pulse Resp BP Pulse Ox 97.7 F 97 H 20 133/90 99 07/02/18 07:33 07/02/18 07:33 07/02/18 07:33 07/02/18 07:33 07/02/18 07:33 Intake and Output: 07/02/18 07/02/18 06:59 18:59 Intake Total 360 Balance 360 - Medications Medications: Current Medications Acetaminophen (Tylenol 325mg Tab) 650 mg PO Q6 PRN PRN Reason: Pain, moderate (4-7) Albuterol/Ipratropium (Duoneb 3 Mg/0.5 Mg (3 Ml) Ud) 3 ml INH RQ4 PRN PRN Reason: Shortness of Breath Last Admin: 06/27/18 19:47 Dose: 3 ml Amlodipine Besylate (Norvasc) 10 mg PO DAILY [facility] Last Admin: 07/01/18 10:41 Dose: 10 mg Emollient Ointment (Vaseline Oint) 5 gm TOP BID PRN PRN Reason: Dry skin Last Admin: 06/23/18 22:00 Dose: 5 gm Enoxaparin Sodium (Lovenox) 40 mg SC DAILY [facility] Last Admin: 07/01/18 10:42 Dose: 40 mg Escitalopram Oxalate (Lexapro) 5 mg PO DAILY [facility] Last Admin: 07/01/18 10:42 Dose: 5 mg Famotidine (Pepcid) 20 mg PO DAILY [facility] Last Admin: 07/01/18 10:41 Dose: 20 mg Fluticasone/Vilanterol (Breo Ellipta 100-25 Mcg Inh) 1 puff INH RQD [facility] Last Admin: 07/02/18 08:58 Dose: 1 puff Hydrochlorothiazide (Hydrodiuril) 25 mg PO BID [facility] Last Admin: 06/30/18 09:44 Dose: 25 mg Lisinopril (Zestril) 30 mg PO DAILY [facility] Last Admin: 07/01/18 10:41 Dose: 30 mg Trazodone HCl (Desyrel) 50 mg PO [facility] Last Admin: 07/01/18 21:14 Dose: 50 mg - Labs Labs: 07/01/18 06:46 07/02/18 07:29
[2018-07-02] MEDS: Enoxaparin 40 mg Syringe SC SCH (09:22)
--- NOTE | 2018-07-02 10:48 | CP.PCM.PN ---
Subjective - Date & Time of Evaluation Date of Evaluation: 07/02/18 Time of Evaluation: 10:46 - Subjective Subjective: Pulm Consult note for Dr. Nash Patient seen and examined at bedside. Short of breath and cough continues to improve. Patient's sodium is trending up at 122 today. Patient appears euvolemic. He denies any neurological symptoms. Patient states he continues to work with for [facility] placement as well as for social security paper work. Patient denies chest pain, fever, nausea, vomiting, diarrhea, or constipation. ROS: as listed in HPI, otherwise negative Objective - Vital Signs/Intake and Output Vital Signs (last 24 hours): Temp Pulse Resp BP Pulse Ox 97.7 F 97 H 20 133/90 99 07/02/18 07:33 07/02/18 07:33 07/02/18 07:33 07/02/18 07:33 07/02/18 07:33 Intake and Output: 07/02/18 07/02/18 06:59 18:59 Intake Total 360 Balance 360 - Medications Medications: Current Medications Acetaminophen (Tylenol 325mg Tab) 650 mg PO Q6 PRN PRN Reason: Pain, moderate (4-7) Albuterol/Ipratropium (Duoneb 3 Mg/0.5 Mg (3 Ml) Ud) 3 ml INH RQ4 PRN PRN Reason: Shortness of Breath Last Admin: 06/27/18 19:47 Dose: 3 ml Amlodipine Besylate (Norvasc) 10 mg PO DAILY [facility] Last Admin: 07/02/18 09:21 Dose: 10 mg Emollient Ointment (Vaseline Oint) 5 gm TOP BID PRN PRN Reason: Dry skin Last Admin: 06/23/18 22:00 Dose: 5 gm Enoxaparin Sodium (Lovenox) 40 mg SC DAILY [facility] Last Admin: 07/02/18 09:22 Dose: 40 mg Escitalopram Oxalate (Lexapro) 5 mg PO DAILY [facility] Last Admin: 07/02/18 09:22 Dose: 5 mg Famotidine (Pepcid) 20 mg PO DAILY [facility] Last Admin: 07/02/18 09:21 Dose: 20 mg Fluticasone/Vilanterol (Breo Ellipta 100-25 Mcg Inh) 1 puff INH RQD [facility] Last Admin: 07/02/18 08:58 Dose: 1 puff Hydrochlorothiazide (Hydrodiuril) 25 mg PO BID [facility] Last Admin: 06/30/18 09:44 Dose: 25 mg Lisinopril (Zestril) 30 mg PO DAILY [facility] Last Admin: 07/02/18 09:21 Dose: 30 mg Trazodone HCl (Desyrel) 50 mg PO HS [facility] Last Admin: 07/01/18 21:14 Dose: 50 mg - Labs Labs: 07/01/18 06:46 07/02/18 07:29 - Constitutional Appears: Well, Non-toxic - Head Exam Head Exam: ATRAUMATIC, NORMOCEPHALIC - Eye Exam Eye Exam: EOMI, Normal appearance Pupil Exam: NORMAL ACCOMODATION - ENT Exam ENT Exam: Mucous Membranes Moist - Neck Exam Neck Exam: Normal Inspection - Respiratory Exam Respiratory Exam: Clear to Ausculation Bilateral, NORMAL BREATHING PATTERN - Cardiovascular Exam Cardiovascular Exam: REGULAR RHYTHM, +S1, +S2. absent: JVD - GI/Abdominal Exam GI & Abdominal Exam: Soft, Normal Bowel Sounds. absent: Tenderness - Extremities Exam Extremities Exam: Normal Capillary Refill. absent: Pedal Edema - Back Exam Back Exam: tenderness - Skin Skin Exam: Dry, Warm Assessment and Plan - Assessment and Plan (Free Text) Assessment: 42 year old male with PMHx of COPD, HTN, schizophrenia, bipolar d/o and TIA presenting with COPD exacerbation. Plan: A: COPD exacerbation P: Continue duonebs as needed Continue Breo treatment daily PFT as outpatient
--- NOTE | 2018-07-02 11:32 | CT ---
Date of service: 07/02/2018 PROCEDURE: CT Thoracic Spine without contrast HISTORY: chronic back pain, s/p injury COMPARISON: None available. TECHNIQUE: Axial computed tomography images were obtained of the thoracic spine without intravenous contrast. Coronal and sagittal reformatted images were created and reviewed. Radiation dose: Total exam DLP = 480.84 mGy-cm. This CT exam was performed using one or more of the following dose reduction techniques: Automated exposure control, adjustment of the mA and/or kV according to patient size, and/or use of iterative reconstruction technique. FINDINGS: VERTEBRAE: Unremarkable. No fracture. Normal alignment. DISCS/SPINAL CANAL/NEURAL FORAMINA: Within the limits of the CT technique, no disc herniation seen. No central canal or neural foraminal stenosis.. PARASPINAL SOFT TISSUES: Unremarkable. OTHER FINDINGS: Mild centrilobular emphysema with right apical pleural parenchymal fibrosis.. IMPRESSION: Unremarkable CT of the thoracic spine.
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
--- NOTE | 2018-07-02 12:15 | CT ---
Date of service: 07/02/2018 PROCEDURE: CT Lumbar Spine without contrast HISTORY: chronic back pain, s/p injury COMPARISON: None available. TECHNIQUE: Axial computed tomography images were obtained of the lumbar spine without the use of intravenous contrast. Coronal and sagittal reformatted images were created and reviewed. Radiation dose: Total exam DLP = 541.51 mGy-cm. This CT exam was performed using one or more of the following dose reduction techniques: Automated exposure control, adjustment of the mA and/or kV according to patient size, and/or use of iterative reconstruction technique. FINDINGS: VERTEBRAE: Unremarkable. No fracture. Normal alignment. DISCS/SPINAL CANAL/NEURAL FORAMINA: L1-2: Unremarkable. L2-3: Unremarkable. L3-4: Unremarkable. L4-5: Disc bulge with thecal sac indentation and mild facet arthropathy. L5-S1: Disc bulge with thecal sac indentation and mild facet arthropathy. PARASPINAL SOFT TISSUES: Unremarkable. OTHER FINDINGS: None. IMPRESSION: No acute fracture.
[2018-07-02 15:34] VITALS: BP 134/89; PULSE 80; TEMP 98
== END 2018-07-02 17:29 | DRG 88 ==
LOC: C.ER 08:27 → C.9E 09:01 → OBSVTOIN 09:01 → C.3T 17:42
PROVIDERS: ADMIT Internal Medicine; ATTEND Internal Medicine
DX: J44.1 Chronic obstructive pulmonary disease with (acute) exacerbation (principal); E87.1 Hypo-osmolality and hyponatremia; F20.9 Schizophrenia, unspecified; T50.2X5A Adverse effect of carbonic-anhydrase inhibitors, benzothiadiazides and other diuretics, initial encounter; F31.9 Bipolar disorder, unspecified; I10 Essential (primary) hypertension; T43.8X6A Underdosing of other psychotropic drugs, initial encounter; Z86.73 Personal history of transient ischemic attack (TIA), and cerebral infarction without residual deficits; Z87.891 Personal history of nicotine dependence; Z87.01 Personal history of pneumonia (recurrent); G89.29 Other chronic pain; M54.5 Low back pain

== ENCOUNTER 2018-07-07 19:02 | Inpatient (IN) | payer MEDICAID ==
[2018-07-07 19:02] VITALS: BMI 18.8
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
[2018-07-07 19:39] LABS: BASO # 0.1 K/uL (0.0-0.2); BASO % 0.8 % (0.0-2.0); EOS # 0.1 K/uL (0.0-0.7); EOS % 1.8 % (0.0-4.0); LYMPH # 2.7 K/uL (1.0-4.3); LYMPH % 34.9 % (20.0-40.0); MEAN CELL VOLUME 90.3 fL (80.0-94.0); MEAN CORPUSCULAR HEMOGLOBIN 30.5 pg (27.0-31.0); MEAN CORPUSCULAR HGB CONC 33.7 g/dL (33.0-37.0); MEAN PLATELET VOLUME 9.5 fL (7.2-11.7); MONO # 0.6 K/uL (0.0-0.8); MONO % 7.7 % (0.0-10.0); NEUT # 4.2 K/uL (1.8-7.0); NEUT % 54.8 % (50.0-75.0); RBC 4.37 Mil/uL (4.40-5.90)
[2018-07-07 19:41] LABS: HEMOGLOBIN 13.3 g/dL (12.0-18.0); WHITE BLOOD COUNT 7.7 K/uL (4.8-10.8)
[2018-07-07 19:46] LABS: PROTHROMBIN TIME 10.9 SECONDS (9.7-12.2)
[2018-07-07 19:58] LABS: ALB/GLOB RATIO 1.7 (1.0-2.1); ALBUMIN 4.6 g/dL (3.5-5.0); ALT/SGPT 13 U/L (21-72); AST/SGOT 22 U/L (17-59); BLOOD UREA NITROGEN 14 mg/dL (9-20); CALCIUM 9.7 mg/dl (8.6-10.4); GFR NON-AFRICAN AMERICAN > 60; HDL CHOLESTEROL 90 mg/dL (30-70)
[2018-07-07] MEDS: Sodium Chloride 0.9% 1,000 ML IV SCH (20:05)
[2018-07-07 20:07] LABS: LDL CHOLESTEROL 108 mg/dL (0-129)
[2018-07-07 20:57] LABS: URINE BILIRUBIN NEGATIVE (NEGATIVE); URINE BLOOD NEGATIVE (NEGATIVE); URINE CLARITY Clear (Clear); URINE COLOR Straw (YELLOW); URINE GLUCOSE (UA) NORMAL (Normal); URINE LEUKOCYTE ESTERASE NEG Leu/uL (Negative); URINE PROTEIN NEGATIVE (NEGATIVE); URINE UROBILINOGEN NORMAL mg/dL (0.2-1.0)
--- NOTE | 2018-07-07 22:01 | CT ---
Date of service: 07/07/2018 PROCEDURE: CT HEAD WITHOUT CONTRAST. HISTORY: Code Stroke COMPARISON: None available. TECHNIQUE: Axial computed tomography images were obtained through the head/brain without intravenous contrast. Radiation dose: Total exam DLP = 1177.13 mGy-cm. This CT exam was performed using one or more of the following dose reduction techniques: Automated exposure control, adjustment of the mA and/or kV according to patient size, and/or use of iterative reconstruction technique. FINDINGS: HEMORRHAGE: No intracranial hemorrhage. BRAIN: No mass effect or edema. The garcia-white matter differentiation appears intact. Please note that MRI with diffusion imaging is more sensitive in the detection of acute ischemic event. VENTRICLES: No hydrocephalus. CALVARIUM: Unremarkable. PARANASAL SINUSES: Mucosal thickening of the bilateral sphenoid sinuses, maxillary sinuses, right frontal sinus, and ethmoid air cells. MASTOID AIR CELLS: Unremarkable as visualized. No inflammatory changes. OTHER FINDINGS: None. IMPRESSION: No acute intracranial pathology identified. Results were discussed with Dr. Hanna at 7:45 p.m. on 07/07/[address] Stout. Preliminary impression was provided by [employer].
--- NOTE | 2018-07-07 22:11 | RAD ---
HISTORY: Code Stroke COMPARISON: Chest x-ray performed 06/23/18 TECHNIQUE: Chest, one view. FINDINGS: LUNGS: Hyperinflation. No focal consolidation. Please note that chest x-ray has limited sensitivity for the detection of pulmonary masses. PLEURA: No significant pleural effusion identified. No definite pneumothorax . CARDIOVASCULAR: The cardiomediastinal silhouette appears within normal limits of size. No significant atherosclerotic calcification present. OSSEOUS STRUCTURES: No acute osseous abnormality identified. VISUALIZED UPPER ABDOMEN: Unremarkable. OTHER FINDINGS: None. IMPRESSION: Hyperinflation. No focal consolidation.
[2018-07-07 22:48] VITALS: RESP 20
[2018-07-08] MEDS ORDERED: Albuterol 0.083% Inhal Sol (2.5 mg/3 mL) UD INH PRN (01:44)
[2018-07-08] MEDS: Sodium Chloride 0.9% 1,000 ML IV SCH ×2 (01:48→15:35)
[2018-07-08] MEDS: Arformoterol 15 mcg/2 ml Inh Sol INH SCH ×2 (08:39→19:29)
[2018-07-08] MEDS: Budesonide 0.25 mg/2 ml Inhal Susp UD INH SCH ×2 (08:39→19:29)
[2018-07-08] MEDS: Enoxaparin 40 mg Syringe SC SCH ×2 (10:12→10:16)
--- NOTE | 2018-07-08 10:50 | CP.PCM.CON ---
History of Present Illness - History of Present Illness History of Present Illness: CC: dysarthria HPI: 42 year old man with pmx of CVA, HTN. He is reporting one day onset of severe dysarthria. Occurred spontaneously. Appears to have occurred in context of CVA. Denies associated palpitations or presyncope. No maneuver has improved these symptom to date. Review of Systems - Review of Systems All systems: reviewed and no additional remarkable complaints except Review of Systems: USes wheelchair Past Patient History - Infectious Disease Hx of Infectious Diseases: None - Past Medical History & Family History Past Medical History?: Yes - Past Social History Smoking Status: Current Some Days Smoker - CARDIAC Hx Hypertension: Yes - PULMONARY Hx Chronic Obstructive Pulmonary Disease (COPD): Yes - NEUROLOGICAL Hx Neurological Disorder: No - HEENT Hx HEENT Problems: No - RENAL Hx Chronic Kidney Disease: No - ENDOCRINE/METABOLIC Hx Endocrine Disorders: No - HEMATOLOGICAL/ONCOLOGICAL Hx Human Immunodeficiency Virus (HIV): No - INTEGUMENTARY Hx Dermatological Problems: No - MUSCULOSKELETAL/RHEUMATOLOGICAL Hx Falls: Yes - GASTROINTESTINAL Hx Gastrointestinal Disorders: No - GENITOURINARY/GYNECOLOGICAL Hx Genitourinary Disorders: No - PSYCHIATRIC Hx Bipolar Disorder: Yes Hx Schizophrenia: Yes Hx Substance Use: No - SURGICAL HISTORY Hx Surgeries: Yes Other/Comment: "chest tube from pneumonia" - ANESTHESIA Hx Anesthesia: No Hx Anesthesia Reactions: No Meds Allergies/Adverse Reactions: Allergies Allergy/AdvReac Type Severity Reaction Status Date / Time onion Allergy ITCHING Verified 06/23/18 08:42 pepper (genus Capsicum) Allergy SWELLING Verified 06/23/18 08:42 PORK AdvReac Verified 06/23/18 08:42 - Medications Medications: Current Medications Albuterol Sulfate (Albuterol 0.083% Inhal Kaycee (2.5 Mg/3 Ml) Ud) 2.5 mg INH RQ6 PRN PRN Reason: Shortness of Breath Amlodipine Besylate (Norvasc) 10 mg PO DAILY [facility] Last Admin: 07/08/18 10:12 Dose: 10 mg Arformoterol Tartrate (Brovana) 15 mcg INH RQ12 [facility] Last Admin: 07/08/18 08:39 Dose: 15 mcg Budesonide (Pulmicort Respules) 0.25 mg INH RQ12 [facility] Last Admin: 07/08/18 08:39 Dose: 0.25 mg Enoxaparin Sodium (Lovenox) 40 mg SC DAILY [facility] Last Admin: 07/08/18 10:16 Dose: Not Given Escitalopram Oxalate (Lexapro) 5 mg PO DAILY [facility] Last Admin: 07/08/18 10:10 Dose: 5 mg Sodium Chloride (Sodium Chloride 0.9%) 1,000 mls @ 100 mls/hr IV .Q10H [facility] Last Admin: 07/08/18 01:48 Dose: 100 mls/hr Lisinopril (Zestril) 30 mg PO DAILY [facility] Last Admin: 07/08/18 10:12 Dose: 30 mg Trazodone HCl (Desyrel) 50 mg PO [facility] Physical Exam - Constitutional Appears: Well, Non-toxic, Agitated - Head Exam Head Exam: ATRAUMATIC, NORMAL INSPECTION Additional comments: Poor dentition - Eye Exam Eye Exam: PERRL. absent: Scleral icterus - ENT Exam ENT Exam: Mucous Membranes Moist, Normal External Ear Exam - Neck Exam Neck exam: Negative for: Lymphadenopathy, Thyromegaly - Respiratory Exam Respiratory Exam: Clear to Auscultation Bilateral, NORMAL BREATHING PATTERN - Cardiovascular Exam Cardiovascular Exam: REGULAR RHYTHM, RRR, +S1, +S2. absent: JVD - GI/Abdominal Exam GI & Abdominal Exam: Normal Bowel Sounds. absent: Organomegaly - Extremities Exam Extremities exam: Negative for: calf tenderness, pedal edema - Neurological Exam Neurological exam: Oriented x3 Additional comments: blunted patellar reflex on right lower extremity, hypertonic in left patellar reflex. 2/5 flexion and plantar strenght in both feet Dysarthria - Psychiatric Exam Psychiatric exam: Anxious, Normal Affect Results - Vital Signs Recent Vital Signs: Last Vital Signs Temp 98.6 F 07/08/18 07:00 Pulse 69 07/08/18 07:00 Resp 20 07/08/18 07:00 BP 119/77 07/08/18 07:00 Pulse Ox 100 07/08/18 07:00 - Labs Result Diagrams: 07/07/18 19:33 07/07/18 19:33 Labs: Laboratory Results - last 24 hr 07/07/18 07/07/18 07/07/18 19:18 19:33 19:33 WBC 7.7 D RBC 4.37 L Hgb 13.3 D Hct 39.4 MCV 90.3 MCH 30.5 MCHC 33.7 RDW 15.0 H Plt Count 285 MPV 9.5 Neut % (Auto) 54.8 Lymph % (Auto) 34.9 [place] % (Auto) 7.7 Eos % (Auto) 1.8 Baso % (Auto) 0.8 Neut # (Auto) 4.2 Lymph # (Auto) 2.7 [place] # (Auto) 0.6 Eos # (Auto) 0.1 Baso # (Auto) 0.1 PT 10.9 INR 1.0 APTT 34.0 Sodium Potassium Chloride Carbon Dioxide Anion Gap BUN Creatinine Est GFR ( Amer) Est GFR (Non-Af Amer) POC Glucose (mg/dL) 149 H Random Glucose Hemoglobin A1c Calcium Total Bilirubin AST ALT Alkaline Phosphatase Total Creatine Kinase Troponin I Total Protein Albumin Globulin Albumin/Globulin Ratio Triglycerides Cholesterol LDL Cholesterol Direct HDL Cholesterol Urine Color Urine Clarity Urine pH Ur Specific [place] Urine Protein Urine Glucose (UA) Urine Ketones Urine Blood Urine Nitrate Urine Bilirubin Urine Urobilinogen Ur Leukocyte Esterase Urine WBC (Auto) Urine RBC (Auto) Blood Type Antibody Screen 07/07/18 07/07/18 07/07/18 19:33 19:35 20:13 WBC RBC Hgb Hct MCV MCH MCHC RDW Plt Count MPV Neut % (Auto) Lymph % (Auto) [place] % (Auto) Eos % (Auto) Baso % (Auto) Neut # (Auto) Lymph # (Auto) [place] # (Auto) Eos # (Auto) Baso # (Auto) PT INR APTT Sodium 135 Potassium 3.9 Chloride 101 Carbon Dioxide 23 Anion Gap 15 BUN 14 Creatinine 0.7 L Est GFR ( Amer) > 60 Est GFR (Non-Af Amer) > 60 POC Glucose (mg/dL) Random Glucose 124 H Hemoglobin A1c Calcium 9.7 Total Bilirubin 0.2 AST 22 ALT 13 L D Alkaline Phosphatase 63 Total Creatine Kinase 84 Troponin I < 0.0120 Total Protein 7.2 Albumin 4.6 Globulin 2.6 Albumin/Globulin Ratio 1.7 Triglycerides 90 D Cholesterol 203 H LDL Cholesterol Direct 108 HDL Cholesterol 90 H Urine Color Straw Urine Clarity Clear Urine pH 6.0 Ur Specific [place] 1.009 Urine Protein Negative Urine Glucose (UA) Normal Urine Ketones Negative Urine Blood Negative Urine Nitrate Negative Urine Bilirubin Negative Urine Urobilinogen Normal Ur Leukocyte Esterase Neg Urine WBC (Auto) < 1 Urine RBC (Auto) < 1 Blood Type O POSITIVE Antibody Screen Negative 07/07/18 07/08/18 20:18 02:09 WBC RBC Hgb Hct MCV MCH MCHC RDW Plt Count MPV Neut % (Auto) Lymph % (Auto) [place] % (Auto) Eos % (Auto) Baso % (Auto) Neut # (Auto) Lymph # (Auto) [place] # (Auto) Eos # (Auto) Baso # (Auto) PT INR APTT Sodium Potassium Chloride Carbon Dioxide Anion Gap BUN Creatinine Est GFR ( Amer) Est GFR (Non-Af Amer) POC Glucose (mg/dL) Random Glucose Hemoglobin A1c 5.9 Calcium Total Bilirubin AST ALT Alkaline Phosphatase Total Creatine Kinase Troponin I < 0.0120 Total Protein Albumin Globulin Albumin/Globulin Ratio Triglycerides Cholesterol LDL Cholesterol Direct HDL Cholesterol Urine Color Urine Clarity Urine pH Ur Specific [place] Urine Protein Urine Glucose (UA) Urine Ketones Urine Blood Urine Nitrate Urine Bilirubin Urine Urobilinogen Ur Leukocyte Esterase Urine WBC (Auto) Urine RBC (Auto) Blood Type Antibody Screen - EKG Data EKG Interpreted by: Myself EKG shows normal: Sinus rhythm Rate: Normal - Imaging and Cardiology Chest x-ray Status: Image reviewed by me Additional comment: No infiltrates or effusions Assessment & Plan - Assessment and Plan (Free Text) Assessment: 42 year old man with possible TIA CT scan is negative, neurology consult. High dose of statin antiplatelet as per neurology Hyperlipidemia LDL is >100 start statin HTN BP targets dictated by neurology to maximize cerebral perfusion COPD is chronic on bronchodilators stable - Date & Time Date: 07/08/18 Time: 10:50
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
--- NOTE | 2018-07-08 15:16 | MRI ---
Date of service: 07/08/2018 PROCEDURE: MR Angiography of the neck without contrast HISTORY: r/o new cva; dysarthria COMPARISON: None available. TECHNIQUE: 3D [id number] angiography of the neck was performed. Rotating maximum intensity projection images of the cervical carotid and vertebral arteries were generated. The origins of the common carotid arteries were not visualized, which is a limitation inherent to the non-contrast time of flight technique. FINDINGS: RIGHT CAROTID ARTERIES: Common Carotid Artery: Normal. Carotid Bifurcation: Normal. Internal Carotid Artery:Normal. External Carotid Artery (proximal branches): Normal. LEFT CAROTID ARTERIES: Common Carotid Artery: Normal. Carotid Bifurcation: Normal. Internal Carotid Artery:Normal. External Carotid Artery (proximal branches): Normal. VERTEBRAL ARTERIES: Right Vertebral Artery: Normal. Left Vertebral Artery: Normal. OTHER FINDINGS: None. IMPRESSION: Normal MR Angiography of the neck.
--- NOTE | 2018-07-08 15:26 | MRI ---
Date of service: 07/08/2018 PROCEDURE: Magnetic Resonance Angiography Brain HISTORY: Dysarthria COMPARISON: None available. TECHNIQUE: 3D time of flight MR angiography of the intracranial arteries was performed. Rotating maximum intensity projection images were generated. FINDINGS: INTERNAL CAROTID ARTERIES: Normal flow related signal. The skull base, petrous, cavernous and supraclinoid segments are bilaterally widely patient. ANTERIOR CEREBRAL ARTERIES: Normal flow related signal. A1 and A2 segments are widely patent. Smaller distal branches unremarkable, as visualized. A1 segment is hypoplastic, an anatomic variant. MIDDLE CEREBRAL ARTERIES: Normal flow related signal. M1 and M2 segments are widely patent. Perisylvian branches grossly symmetric. POSTERIOR CIRCULATION: Basilar Artery: Normal flow related signal. Normal in caliber and widely patent. Distal Vertebral Arteries: Normal flow related signal in the dominant right vertebral artery. There is absent flow related signal in the left vertebral artery. Posterior Cerebral Arteries: Normal flow related signal. Widely patent. Posterior Inferior Cerebellar Arteries: Normal flow related signal. Widely patent. ANEURYSM/ VASCULAR MALFORMATIONS: None. OTHER FINDINGS: None. IMPRESSION: No evidence of occlusion, stenosis or saccular aneurysm. Absent signal void in the hypoplastic left vertebral artery which could be related to occlusion, or left vertebral artery terminating in PICA. Correlation with CT of the head and neck would be helpful for definitive evaluation.
--- NOTE | 2018-07-08 15:46 | MRI ---
Date of service: 07/08/2018 PROCEDURE: MRI BRAIN WITHOUT CONTRAST HISTORY: Dysarthria COMPARISON: CT head without contrast from 07/07/2018. TECHNIQUE: Multiplanar, multisequence MR images of the brain were obtained with and without intravenous contrast enhancement. FINDINGS: HEMORRHAGE: None DWI: No evidence of an acute or early subacute infarction. BRAIN PARENCHYMA: There are few scattered T2/FLAIR hyperintense foci the subcortical supratentorial white matter. There is no mass, mass effect or abnormal extra-axial fluid collection. Midline sagittal structures are normal. VENTRICLES: There is mild age advanced global parenchymal volume loss and proportionate enlargement of the ventricles and cortical sulci. CRANIUM: There is normal bone marrow signal pattern. ORBITS: Grossly unremarkable. PARANASAL SINUSES/MASTOIDS: There is moderate mucosal thickening in the paranasal sinuses, worse in the right sphenoid sinus with retention cyst/polyp and chronic inspissated secretions. Bilateral small mastoid effusions, worse on the left. VASCULAR SYSTEM: There is absent flow related signal in the left vertebral artery. There is normal flow related signal in the anterior intracranial arteries and right vertebral arteries. OTHER FINDINGS: None . IMPRESSION: 1. No acute intracranial abnormality. Specifically, no evidence for acute infarction. 2. Minimal subcortical supratentorial white matter changes are strictly nonspecific, the differential considerations include gliosis, migraine headache effect, early chronic microangiopathic changes, Lyme disease, vasculitis and demyelinating disease including multiple sclerosis. Clinical follow-up is advised. 3. Chronic pansinusitis, worse in the right sphenoid chamber.
[2018-07-08 16:18] LABS: BARBITURATES, UR NEGATIVE (NEGATIVE); BENZODIAZEPINES, UR NEGATIVE (NEGATIVE); OPIATES, UR NEGATIVE (NEGATIVE); PHENCYCLIDINE, UR NEGATIVE (NEGATIVE)
[2018-07-09] MEDS: Sodium Chloride 0.9% 1,000 ML IV SCH ×4 (01:41→21:26)
--- NOTE | 2018-07-09 03:12 | CARD ---
APPROVED REPORT Date of service: 07/07/2018 EKG Measurement Heart [id number] <Conclusion> Sinus rhythm with 1st degree AV block Otherwise normal ECG
[2018-07-09 06:45] LABS: BASO % 0.4 % (0.0-2.0); EOS # 0.2 K/uL (0.0-0.7); EOS % 3.4 % (0.0-4.0); HEMOGLOBIN 11.4 g/dL (12.0-18.0); LYMPH # 2.3 K/uL (1.0-4.3); LYMPH % 52.3 % (20.0-40.0); MEAN CELL VOLUME 91.2 fL (80.0-94.0); MEAN CORPUSCULAR HEMOGLOBIN 30.7 pg (27.0-31.0); MEAN CORPUSCULAR HGB CONC 33.6 g/dL (33.0-37.0); MEAN PLATELET VOLUME 9.5 fL (7.2-11.7); MONO # 0.4 K/uL (0.0-0.8); MONO % 9.9 % (0.0-10.0); NEUT # 1.5 K/uL (1.8-7.0); RBC 3.72 Mil/uL (4.40-5.90); RED CELL DISTRIBUTION WIDTH 15.1 % (11.5-14.5); WHITE BLOOD COUNT 4.4 K/uL (4.8-10.8)
[2018-07-09 07:11] LABS: ALB/GLOB RATIO 1.7 (1.0-2.1); ALBUMIN 3.4 g/dL (3.5-5.0); ALT/SGPT 19 U/L (21-72); AST/SGOT 15 U/L (17-59); BLOOD UREA NITROGEN 10 mg/dL (9-20); CALCIUM 8.9 mg/dl (8.6-10.4); GFR NON-AFRICAN AMERICAN > 60
--- NOTE | 2018-07-09 07:54 | CP.PCM.PN ---
Subjective - Date & Time of Evaluation Date of Evaluation: 07/09/18 Time of Evaluation: 07:47 - Subjective Subjective: Medicine Progress Note for Dr. Jose's service S/E at bedside. Reports continued dysarthria and weakness in legs Denies f/c, cp, sob, n/v, constipation or diarrhea, and dysuria. Objective - Vital Signs/Intake and Output Vital Signs (last 24 hours): Temp Pulse Resp BP Pulse Ox 98.0 F 72 20 105/71 99 07/08/18 23:55 07/09/18 04:07 07/08/18 23:55 07/08/18 23:55 07/08/18 23:55 Intake and Output: 07/09/18 07/09/18 06:59 18:59 Intake Total 1800 Output Total 1900 Balance -100 - Medications Medications: Current Medications Albuterol Sulfate (Albuterol 0.083% Inhal Kaycee (2.5 Mg/3 Ml) Ud) 2.5 mg INH RQ6 PRN PRN Reason: Shortness of Breath Amlodipine Besylate (Norvasc) 10 mg PO DAILY [facility] Last Admin: 07/08/18 10:12 Dose: 10 mg Arformoterol Tartrate (Brovana) 15 mcg INH RQ12 [facility] Last Admin: 07/08/18 19:29 Dose: Not Given Aspirin (Ecotrin) 81 mg PO DAILY [facility] Last Admin: 07/08/18 14:45 Dose: 81 mg Budesonide (Pulmicort Respules) 0.25 mg INH RQ12 [facility] Last Admin: 07/08/18 19:29 Dose: Not Given Clopidogrel Bisulfate (Plavix) 75 mg PO DAILY [facility] Last Admin: 07/08/18 14:45 Dose: 75 mg Enoxaparin Sodium (Lovenox) 40 mg SC DAILY [facility] Last Admin: 07/08/18 10:16 Dose: Not Given Escitalopram Oxalate (Lexapro) 5 mg PO DAILY [facility] Last Admin: 07/08/18 10:10 Dose: 5 mg Sodium Chloride (Sodium Chloride 0.9%) 1,000 mls @ 100 mls/hr IV .Q10H [facility] Last Admin: 07/09/18 05:15 Dose: 100 mls/hr Lisinopril (Zestril) 30 mg PO DAILY [facility] Last Admin: 07/08/18 10:12 Dose: 30 mg Rosuvastatin Calcium (Crestor) 10 mg PO HS [facility] Last Admin: 07/08/18 21:35 Dose: 10 mg Trazodone HCl (Desyrel) 50 mg PO HS [facility] Last Admin: 07/08/18 21:35 Dose: 50 mg - Labs Labs: 07/09/18 06:36 07/09/18 06:36 PT 10.9 SECONDS (9.7-12.2) 07/07/18 19:33 INR 1.0 07/07/18 19:33 APTT 34.0 SECONDS (21-34) 07/07/18 19:33 - Constitutional Appears: Non-toxic, No Acute Distress - Head Exam Head Exam: NORMAL INSPECTION, NORMOCEPHALIC - Eye Exam Eye Exam: EOMI, Normal appearance. absent: Nystagmus, Scleral icterus - ENT Exam ENT Exam: Mucous Membranes Moist - Respiratory Exam Respiratory Exam: Clear to Ausculation Bilateral, NORMAL BREATHING PATTERN. absent: Rales, Rhonchi, Wheezes - Cardiovascular Exam Cardiovascular Exam: REGULAR RHYTHM, +S1, +S2 - GI/Abdominal Exam GI & Abdominal Exam: Soft, Normal Bowel Sounds. absent: Distended, Firm, Guarding, Rigid, Tenderness - Extremities Exam Extremities Exam: Normal Inspection. absent: Pedal Edema - Neurological Exam Neurological Exam: Awake, Oriented x3 - Psychiatric Exam Psychiatric exam: Normal Affect, Normal Mood - Skin Skin Exam: Dry, Intact, Normal Color Assessment and Plan - Assessment and Plan (Free Text) Assessment: 42 year old male with PMhx of HTN, COPD, bipolar, schizophrenia recently discharge on 07/03, presents with 2 days of dysarthria: Plan: Dysarthria MRI brain shows no acute stroke; minimal subcortical supratentorial white matter changes are strictly nonspecific, ddx include gliosis, migraine headache effect, early chronic microangiopathic changes, lyme disease, vasculitis and demyleniating disease including MS MRA head shows absent signal oid in the hypoplastic left vertebral artery which could be related to oclcusion or left vertebral artery terminating in PICA troponins X [address] head no acute intracranial pathology Neuro recs: Dr. Hanna - aspirin 81 mg daily, plavix 75 mg daily, rousvastatin 10 mg daily RPR & HIV pending Echo pending COPD Breo ellipta 100-25 1 puff daily duonebs PRN History of HTN amlodipine 10 mg PO daily Lisinopril 30 mg PO daily Hx of Bipolar disease Hx of Schizophrenia trazodone 50 mg PO HS, lexapro 5 mg PO daily Chronic Back pain Lower extremity paresthesia - chronic continue to monitor B12 normal in 04/2018 PT eval pending PPx - DVT: lovenox 40 mg SC daily - Pepcid 20mg PO QD - HHD dispo: pending dysarthria workup will discuss with Dr. Jose
[2018-07-09] MEDS: Arformoterol 15 mcg/2 ml Inh Sol INH SCH ×2 (08:29→20:02)
[2018-07-09] MEDS: Budesonide 0.25 mg/2 ml Inhal Susp UD INH SCH ×2 (08:30→20:02)
[2018-07-09] MEDS: Enoxaparin 40 mg Syringe SC SCH (10:12)
--- NOTE | 2018-07-09 12:49 | CP.PCM.PN ---
Subjective - Date & Time of Evaluation Date of Evaluation: 07/09/18 Time of Evaluation: 12:48 - Subjective Subjective: Neuro Follow Up Note: Mr. Lopez was evaluated this afternoon at bedside. He states that he is feeling better compared to yesterday. He still has some stuttering in speech, though, it is improved since my visit with him yesterday. Otherwise ROS is unremarkable. Objective - Vital Signs/Intake and Output Vital Signs (last 24 hours): Temp Pulse Resp BP Pulse Ox 98.1 F 84 20 127/88 97 07/09/18 07:00 07/09/18 07:00 07/09/18 07:00 07/09/18 07:00 07/09/18 07:00 Intake and Output: 07/09/18 07/09/18 06:59 18:59 Intake Total 1800 Output Total 1900 Balance -100 - Medications Medications: Current Medications Albuterol Sulfate (Albuterol 0.083% Inhal Kaycee (2.5 Mg/3 Ml) Ud) 2.5 mg INH RQ6 PRN PRN Reason: Shortness of Breath Amlodipine Besylate (Norvasc) 10 mg PO DAILY [facility] Last Admin: 07/09/18 10:12 Dose: 10 mg Arformoterol Tartrate (Brovana) 15 mcg INH RQ12 [facility] Last Admin: 07/09/18 08:29 Dose: Not Given Aspirin (Ecotrin) 81 mg PO DAILY [facility] Last Admin: 07/09/18 10:11 Dose: 81 mg Budesonide (Pulmicort Respules) 0.25 mg INH RQ12 [facility] Last Admin: 07/09/18 08:30 Dose: Not Given Clopidogrel Bisulfate (Plavix) 75 mg PO DAILY [facility] Last Admin: 07/09/18 10:12 Dose: 75 mg Enoxaparin Sodium (Lovenox) 40 mg SC DAILY [facility] Last Admin: 07/09/18 10:12 Dose: Not Given Escitalopram Oxalate (Lexapro) 5 mg PO DAILY [facility] Last Admin: 07/08/18 10:10 Dose: 5 mg Sodium Chloride (Sodium Chloride 0.9%) 1,000 mls @ 100 mls/hr IV .Q10H [facility] Last Admin: 07/09/18 05:15 Dose: 100 mls/hr Lisinopril (Zestril) 30 mg PO DAILY [facility] Last Admin: 07/09/18 10:11 Dose: 30 mg Rosuvastatin Calcium (Crestor) 10 mg PO HS [facility] Last Admin: 07/08/18 21:35 Dose: 10 mg Trazodone HCl (Desyrel) 50 mg PO HS [facility] Last Admin: 07/08/18 21:35 Dose: 50 mg - Labs Labs: 07/09/18 06:36 07/09/18 06:36 PT 10.9 SECONDS (9.7-12.2) 07/07/18 19:33 INR 1.0 07/07/18 19:33 APTT 34.0 SECONDS (21-34) 07/07/18 19:33 - Constitutional Appears: Well, Non-toxic, No Acute Distress - Head Exam Head Exam: ATRAUMATIC, NORMAL INSPECTION, NORMOCEPHALIC - Eye Exam Eye Exam: EOMI, Normal appearance, PERRL Pupil Exam: NORMAL ACCOMODATION, PERRL - ENT Exam ENT Exam: Mucous Membranes Moist, Normal Exam - Neck Exam Neck Exam: Full ROM, Normal Inspection - Respiratory Exam Respiratory Exam: NORMAL BREATHING PATTERN - Extremities Exam Extremities Exam: absent: Calf Tenderness, Pedal Edema Additional comments: Weakness still noted to BLE; proximal strength BLE 3/5, distal 2-3/5. - Back Exam Back Exam: Full ROM. absent: paraspinal tenderness, vertebral tenderness - Neurological Exam Neurological Exam: Abnormal Gait, Alert, Awake, CN II-XII Intact, Oriented x3 Additional comments: AAOx3 + stuttering of speech still noted, though improved compared to yesterday. No aphasia appreciated. No facial asymmetry. Motor: Weakness is still noted to BLE; proximal strength BLE 3/5, distal 2-3/5. BUE proximal 4/5, distal 4/5 Shoulders 4/5 Sensory: + some decreased sensation noted to LUE and LLE compared to the right side; no facial sensory deficits. Coordination: No dysmetria b/l, no ataxia No tremors noted. Reflexes brisk b/l - Psychiatric Exam Psychiatric exam: Normal Affect, Normal Mood - Skin Skin Exam: Normal Color Assessment and Plan (1) Dysarthria Assessment & Plan: Imaging reviewed: -MRI Brain without contrast (07/08/18): 1. No acute intracranial abnormality. Specifically, no evidence for acute infarction. 2. Minimal subcortical supratentorial white matter changes are strictly nonspecific, the differential considerations include gliosis, migraine headache effect, early chronic microangiopathic changes, Lyme disease, vasculitis and demyelinating disease including multiple sclerosis. Clinical follow-up is advised. 3. Chronic pansinusitis, worse in the right sphenoid chamber. -MRA Head (07/08/18): No evidence of occlusion, stenosis or saccular aneurysm. Absent signal void in the hypoplastic left vertebral artery which could be related to occlusion, or left vertebral artery terminating in PICA. Correlation with CT of the head and neck would be helpful for definitive evaluation. -MRA Neck (07/08/18): Normal MR Angiography of the neck. -CT Head (07/07/18): No acute intracranial pathology identified. -CTA Head and Neck ordered to r/o possible left vertebral artery occlusion seen on MRA Head---will f/u with results. -ECHO with Bubble completed to r/o PFO, ASD--pending results. -Continue PT/OT/ST -Continue ASA, Plavix, Statin. -Notify neuro for any acute changes in pt's condition. Melany Enamorado, CHUCK, [employer] d/w Dr. Pastrana Status: Acute
--- NOTE | 2018-07-09 15:15 | CT ---
Date of service: 07/09/2018 PROCEDURE: CTA HEAD AND NECK WITH CONTRAST HISTORY: r/o occlusion to left vertebral artery COMPARISON: 2019. TECHNIQUE: Initial noncontrast head CT was performed. Subsequently, CT angiogram of the head and neck were performed after the intravenous administration of 80 mL of Omnipaque 350. Contiguous 1.5mm thick images were obtained in the axial plane of the neck. 2-D coronal and sagittal MPR images were obtained. Imaging postprocessing was performed with 3-D images also obtained. A delayed contrast head CT was also obtained. This CT exam was performed using one or more of the following dose reduction techniques: Automated exposure control, adjustment of the mA and/or kV according to patient size, and/or use of iterative reconstruction technique. Contrast dose: 100 mL Visipaque 320 Radiation dose: Total exam DLP = 690.38 mGy-cm. FINDINGS: HEAD: Right: The intracranial internal carotid artery, and anterior and middle cerebral arteries are widely patent. The A1 segment is hypoplastic, an anatomic variant. Left: The intracranial internal carotid artery, and anterior and middle cerebral arteries are widely patent. Posterior circulation: The visualized intracranial right vertebral artery, basilar artery and posterior cerebral arteries are widely patent. The left vertebral artery is hypoplastic and terminates in posterior inferior cerebellar artery, an anatomic variant. There is no endoluminal filling defect to suggest thrombus. There is no intracranial saccular aneurysm. NECK: There is a three vessel aortic arch. There is no stenosis at the origins of the great vessels at the level of the aortic arch. No atherosclerotic calcification or mural plaque present. Right Carotid: On the right, the common carotid, internal carotid and external carotid arteries are widely patent. There is no hemodynamically significant stenosis in the internal carotid artery by NASCET criteria. Left Carotid: On the left, the common carotid, internal carotid and external carotid arteries are widely patent. There is no hemodynamically significant stenosis in the internal carotid artery by NASCET criteria. The vertebral arteries are widely patent. The left vertebral artery is hypoplastic, an anatomic variant. The visualized soft tissues of the neck are normal. The visualized brain and cervical spine are within normal limits. There is paraseptal emphysema in the right medial apex, otherwise the visualized lungs are clear. IMPRESSION: 1. No evidence of endoluminal thrombus,occlusion or definite significant stenosis in the intracranial arteries. 2. No evidence of hemodynamically significant stenosis in the internal carotid arteries. 3. Patent bilateral vertebral arteries. The left vertebral artery is hypoplastic and terminates in posterior inferior cerebellar artery, an anatomic variant. No evidence for vertebral artery occlusion.
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
--- NOTE | 2018-07-09 18:14 | CARD ---
APPROVED REPORT Date of service: 07/09/2018 EXAM: LIMITED Two-dimensional and M-mode echocardiogram with bubble Other Information Quality : GoodRhythm : INDICATION CVA/TIA dysarthria Echo Enhancing Agent Indication: Rule Out Septal Defect Agent/Amount Used: Agitated Saline RISK FACTORS Hypertension Mitral Valve E/A ratio0.0 TDI E/Lateral E'0.0E/Medial E'0.0 <Conclusion> No Bubble flow across the atrial septum is noted
[2018-07-10 07:53] LABS: BASO % 0.7 % (0.0-2.0); EOS # 0.1 K/uL (0.0-0.7); EOS % 2.7 % (0.0-4.0); HEMOGLOBIN 11.5 g/dL (12.0-18.0); LYMPH # 1.9 K/uL (1.0-4.3); LYMPH % 42.5 % (20.0-40.0); MEAN CELL VOLUME 90.4 fL (80.0-94.0); MEAN CORPUSCULAR HEMOGLOBIN 31.4 pg (27.0-31.0); MEAN CORPUSCULAR HGB CONC 34.7 g/dL (33.0-37.0); MEAN PLATELET VOLUME 9.3 fL (7.2-11.7); MONO # 0.4 K/uL (0.0-0.8); MONO % 9.4 % (0.0-10.0); NEUT % 44.7 % (50.0-75.0); NRBC % 0.1 % (0.0-2.0); RBC 3.65 Mil/uL (4.40-5.90); RED CELL DISTRIBUTION WIDTH 15.3 % (11.5-14.5); WHITE BLOOD COUNT 4.5 K/uL (4.8-10.8)
[2018-07-10 08:06] LABS: ALB/GLOB RATIO 1.7 (1.0-2.1); ALBUMIN 3.6 g/dL (3.5-5.0); ALT/SGPT 18 U/L (21-72); AST/SGOT 17 U/L (17-59); BLOOD UREA NITROGEN 12 mg/dL (9-20); GFR NON-AFRICAN AMERICAN > 60
--- NOTE | 2018-07-10 09:20 | CP.PCM.PN ---
Subjective - Date & Time of Evaluation Date of Evaluation: 07/10/18 Time of Evaluation: 09:20 - Subjective Subjective: Events reviewed Objective - Vital Signs/Intake and Output Vital Signs (last 24 hours): Temp Pulse Resp BP Pulse Ox 98.1 F 74 20 107/67 90 L 07/10/18 07:00 07/10/18 08:00 07/10/18 07:00 07/10/18 07:00 07/10/18 07:00 Intake and Output: 07/10/18 07/10/18 06:59 18:59 Intake Total 1800 Output Total 800 Balance 1000 - Medications Medications: Current Medications Albuterol Sulfate (Albuterol 0.083% Inhal [place] (2.5 Mg/3 Ml) Ud) 2.5 mg INH RQ6 PRN PRN Reason: Shortness of Breath Amlodipine Besylate (Norvasc) 10 mg PO DAILY [facility] Last Admin: 07/09/18 10:12 Dose: 10 mg Arformoterol Tartrate (Brovana) 15 mcg INH RQ12 [facility] Last Admin: 07/09/18 20:02 Dose: Not Given Aspirin (Ecotrin) 81 mg PO DAILY [facility] Last Admin: 07/09/18 10:11 Dose: 81 mg Budesonide (Pulmicort Respules) 0.25 mg INH RQ12 [facility] Last Admin: 07/09/18 20:02 Dose: Not Given Clopidogrel Bisulfate (Plavix) 75 mg PO DAILY [facility] Last Admin: 07/09/18 10:12 Dose: 75 mg Enoxaparin Sodium (Lovenox) 40 mg SC DAILY [facility] Last Admin: 07/09/18 10:12 Dose: Not Given Escitalopram Oxalate (Lexapro) 5 mg PO DAILY [facility] Last Admin: 07/09/18 10:00 Dose: 5 mg Sodium Chloride (Sodium Chloride 0.9%) 1,000 mls @ 100 mls/hr IV .Q10H [facility] Last Admin: 07/09/18 21:26 Dose: 100 mls/hr Lisinopril (Zestril) 30 mg PO DAILY [facility] Last Admin: 07/09/18 10:11 Dose: 30 mg Rosuvastatin Calcium (Crestor) 10 mg PO HS [facility] Last Admin: 07/09/18 21:26 Dose: 10 mg Trazodone HCl (Desyrel) 50 mg PO HS [facility] Last Admin: 07/09/18 21:26 Dose: 50 mg - Labs Labs: 07/10/18 07:33 07/10/18 07:33 PT 10.9 SECONDS (9.7-12.2) 07/07/18 19:33 INR 1.0 07/07/18 19:33 APTT 34.0 SECONDS (21-34) 07/07/18 19:33 Assessment and Plan - Assessment and Plan (Free Text) Assessment: Physical Exam - Constitutional Appears: Well, Non-toxic, Agitated - Head Exam Head Exam: ATRAUMATIC, NORMAL INSPECTION Additional comments: Poor dentition - Eye Exam Eye Exam: PERRL. absent: Scleral icterus - ENT Exam ENT Exam: Mucous Membranes Moist, Normal External Ear Exam - Neck Exam Neck exam: Negative for: Lymphadenopathy, Thyromegaly - Respiratory Exam Respiratory Exam: Clear to Auscultation Bilateral, NORMAL BREATHING PATTERN - Cardiovascular Exam Cardiovascular Exam: REGULAR RHYTHM, RRR, +S1, +S2. absent: JVD - GI/Abdominal Exam GI & Abdominal Exam: Normal Bowel Sounds. absent: Organomegaly - Extremities Exam Extremities exam: Negative for: calf tenderness, pedal edema - Neurological Exam Neurological exam: Oriented x3 Additional comments: blunted patellar reflex on right lower extremity, hypertonic in left patellar reflex. 2/5 flexion and plantar strenght in both feet Dysarthria - Psychiatric Exam Psychiatric exam: Anxious, Normal Affect - EKG Data EKG Interpreted by: Myself EKG shows normal: Sinus rhythm Rate: Normal - Imaging and Cardiology Chest x-ray Status: Image reviewed by me Additional comment: No infiltrates or effusions Assessment & Plan - Assessment and Plan (Free Text) Assessment: 42 year old man with dysarthria MRI is negative for any infarction, awaiting neurology workup resuults. 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 Hyperlipidemia LDL is >100 on crestor HTN chronic and stable on amlodipine and lisinopril COPD is chronic on bronchodilators stable
[2018-07-10] MEDS: Arformoterol 15 mcg/2 ml Inh Sol INH SCH (10:13)
[2018-07-10] MEDS: Budesonide 0.25 mg/2 ml Inhal Susp UD INH SCH (10:13)
[2018-07-10] MEDS: Enoxaparin 40 mg Syringe SC SCH (11:08)
--- NOTE | 2018-07-10 13:36 | CP.PCM.DIS ---
Provider - Provider Date of Admission: 07/07/18 21:08 Attending physician: iSdney Jose Jr, MD Consults: 07/07/18 19:24 Stroke Team Consult Stat Comment: new onset dysarthria Consulting Provider: Neurohospitalist Consulting Physician: NEUROHOJESS Neurohospitalist for Consult: Francisco Schmitt Neurohospitalist for Consult: Cherelle Pastrana Reason for Consult: new onset dysarthria 07/08/18 01:37 Cardiology Consult Routine Comment: TIA Consulting Provider: Emil Stevens Consulting Physician: Emil Stevens Reason for Consult: TIA 07/08/18 10:28 Physician Consult Routine Comment: Consulting Provider: Sidney Jose Jr. Consulting Physician: Sidney Jose Jr. Reason for Consult: Switching services from Dr. Arie Ashton Time Spent in preparation of Discharge (in minutes): 32 Diagnosis - Discharge Diagnosis (1) Dysarthria Status: Resolved (2) Lower extremity weakness Status: Chronic Hospital Course - Lab Results Lab Results: Most Recent Lab Values WBC 4.5 K/uL (4.8-10.8) L 07/10/18 07:33 RBC 3.65 Mil/uL (4.40-5.90) L 07/10/18 07:33 Hgb 11.5 g/dL (12.0-18.0) L 07/10/18 07:33 Hct 33.1 % (35.0-51.0) L 07/10/18 07:33 MCV 90.4 fL (80.0-94.0) 07/10/18 07:33 MCH 31.4 pg (27.0-31.0) H 07/10/18 07:33 MCHC 34.7 g/dL (33.0-37.0) 07/10/18 07:33 RDW 15.3 % (11.5-14.5) H 07/10/18 07:33 Plt Count 253 K/uL (130-400) 07/10/18 07:33 MPV 9.3 fL (7.2-11.7) 07/10/18 07:33 Neut % (Auto) 44.7 % (50.0-75.0) L 07/10/18 07:33 Lymph % (Auto) 42.5 % (20.0-40.0) H 07/10/18 07:33 [place] % (Auto) 9.4 % (0.0-10.0) 07/10/18 07:33 Eos % (Auto) 2.7 % (0.0-4.0) 07/10/18 07:33 Baso % (Auto) 0.7 % (0.0-2.0) 07/10/18 07:33 Neut # (Auto) 2.0 K/uL (1.8-7.0) 07/10/18 07:33 Lymph # (Auto) 1.9 K/uL (1.0-4.3) 07/10/18 07:33 [place] # (Auto) 0.4 K/uL (0.0-0.8) 07/10/18 07:33 Eos # (Auto) 0.1 K/uL (0.0-0.7) 07/10/18 07:33 Baso # (Auto) 0.0 K/uL (0.0-0.2) 07/10/18 07:33 PT 10.9 SECONDS (9.7-12.2) 07/07/18 19:33 INR 1.0 07/07/18 19:33 APTT 34.0 SECONDS (21-34) 07/07/18 19:33 Sodium 136 mmol/L (132-148) 07/10/18 07:33 Potassium 3.9 mmol/L (3.6-5.2) 07/10/18 07:33 Chloride 107 mmol/L (98-107) 07/10/18 07:33 Carbon Dioxide 24 mmol/L (22-30) 07/10/18 07:33 Anion Gap 8 (10-20) L 07/10/18 07:33 BUN 12 mg/dL (9-20) 07/10/18 07:33 Creatinine 0.7 mg/dL (0.8-1.5) L 07/10/18 07:33 Est GFR ( Amer) > 60 07/10/18 07:33 Est GFR (Non-Af Amer) > 60 07/10/18 07:33 POC Glucose (mg/dL) 149 mg/dL (65-110) H 07/07/18 19:18 Random Glucose 86 mg/dL (75-110) 07/10/18 07:33 Hemoglobin A1c 5.9 % (4.2-6.5) 07/07/18 20:18 Calcium 9.0 mg/dl (8.6-10.4) 07/10/18 07:33 Phosphorus 4.1 mg/dL (2.5-4.5) 07/10/18 07:33 Magnesium 1.7 mg/dL (1.6-2.3) 07/10/18 07:33 Total Bilirubin 0.1 mg/dL (0.2-1.3) L 07/10/18 07:33 AST 17 U/L (17-59) 07/10/18 07:33 ALT 18 U/L (21-72) L 07/10/18 07:33 Alkaline Phosphatase 55 U/L (38-126) 07/10/18 07:33 Total Creatine Kinase 84 U/L (55-170) 07/07/18 19:33 Troponin I < 0.0120 ng/mL (0.00-0.120) 07/08/18 11:23 Total Protein 5.7 g/dL (6.3-8.3) L 07/10/18 07:33 Albumin 3.6 g/dL (3.5-5.0) 07/10/18 07:33 Globulin 2.1 gm/dL (2.2-3.9) L 07/10/18 07:33 Albumin/Globulin Ratio 1.7 (1.0-2.1) 07/10/18 07:33 Triglycerides 90 mg/dL (0-149) D 07/07/18 19:33 Cholesterol 203 mg/dL (0-199) H 07/07/18 19:33 LDL Cholesterol Direct 108 mg/dL (0-129) 07/07/18 19:33 HDL Cholesterol 90 mg/dL (30-70) H 07/07/18 19:33 Urine Color Straw (YELLOW) 07/07/18 20:13 Urine Clarity Clear (Clear) 07/07/18 20:13 Urine pH 6.0 (5.0-8.0) 07/07/18 20:13 Ur Specific [place] 1.009 (1.003-1.030) 07/07/18 20:13 Urine Protein Negative mg/dL (NEGATIVE) 07/07/18 20:13 Urine Glucose (UA) Normal mg/dL (Normal) 07/07/18 20:13 Urine Ketones Negative mg/dL (NEGATIVE) 07/07/18 20:13 Urine Blood Negative (NEGATIVE) 07/07/18 20:13 Urine Nitrate Negative (NEGATIVE) 07/07/18 20:13 Urine Bilirubin Negative (NEGATIVE) 07/07/18 20:13 Urine Urobilinogen Normal mg/dL (0.2-1.0) 07/07/18 20:13 Ur Leukocyte Esterase Neg Jonah/uL (Negative) 07/07/18 20:13 Urine WBC (Auto) < 1 /hpf (0-5) 07/07/18 20:13 Urine RBC (Auto) < 1 /hpf (0-3) 07/07/18 20:13 Urine Opiates Screen Negative (NEGATIVE) 07/08/18 14:58 Urine Methadone Screen Negative (NEGATIVE) 07/08/18 14:58 Ur Barbiturates Screen Negative (NEGATIVE) 07/08/18 14:58 Ur Phencyclidine Scrn Negative (NEGATIVE) 07/08/18 14:58 Ur Amphetamines Screen Negative (NEGATIVE) 07/08/18 14:58 U Benzodiazepines Scrn Negative (NEGATIVE) 07/08/18 14:58 U Oth Cocaine Metabols Negative (NEGATIVE) 07/08/18 14:58 U Cannabinoids Screen Negative (NEGATIVE) 07/08/18 14:58 RPR Nonreactive (NONREACTIVE) 07/09/18 13:58 HIV 1&2 Antibody Screen Negative (NEGATIVE) 07/09/18 13:58 Blood Type O POSITIVE 07/07/18 19:35 Antibody Screen Negative 07/07/18 19:35 - Hospital Course Hospital Course: Upon Admission 42 year old male with PMHx of HTN, COPD, schizophrenia, bipolar, possible TIA, recently discharged (07/03) for COPD exacerbation presents to ED for dysarthria. Pt reports symptoms began 2 days prior while he has been at [facility]. Pt reports symptoms began when we woke up and noticed he had difficulty to saying the words. Pt denies slurred speech or any new motor deficits. Associated with the dysarthria pt reports a tremor in his lower extremities that began 5 days prior. Pt denies recent travel or sick contacts. Pt denies chest pain, SOB, abdominal pain, nausea, vomiting, fevers, chills, difficulty swallowing. Pt typically ambulates via wheelchair. Hospital Course Admitted for dysarthia. Neurology was consulted. MRI of brain, MRA head and neck, and CT head was ordered to rule out neurological causes. All reports were negative for a neurological cause. Pt had moments where he had no difficulty speaking witnessed by many different healthcare teams. The dysarthira was attributed to malingering but unknown for what reason. Discharge Plan 1. Stable for discharge to [facility] as per Dr. Jose 2. Patient will continue medications as reconciled at [facility] 3. Patient will need to followup with primary medical doctor within a week of discharge from hospital. 4. If symptoms worsen or recur, patient should return to hospital. Patient understands the plan as above and agrees. Disclaimer: Written above is a synopsis of patient's current hospital admission. For full report refer to EMR Discharge Exam - Head Exam Head Exam: ATRAUMATIC, NORMAL INSPECTION, NORMOCEPHALIC - Eye Exam Eye Exam: EOMI, Normal appearance - ENT Exam ENT Exam: Mucous Membranes Moist - Respiratory Exam Respiratory Exam: NORMAL BREATHING PATTERN. absent: Rales, Wheezes - Cardiovascular Exam Cardiovascular Exam: REGULAR RHYTHM, +S1, +S2 - GI/Abdominal Exam GI & Abdominal Exam: Normal Bowel Sounds, Soft. absent: Diminished Bowel Sounds, Distended, Firm, Guarding, Tenderness - Neurological Exam Neurological exam: Alert, Oriented x3 - Psychiatric Exam Psychiatric exam: Normal Affect, Normal Mood - Skin Skin Exam: Dry, Intact, Normal Color Discharge Plan - Follow Up Plan Condition: GUARDED Disposition: REHAB FACILITY/REHAB UNIT Additional Instructions: 1. Stable for discharge to [facility] as per Dr. Jose 2. Patient will continue medications as reconciled at [facility] 3. Patient will need to followup with primary medical doctor within a week of discharge from hospital. 4. If symptoms worsen or recur, patient should return to hospital. Patient understands the plan as above and agrees.
[2018-07-10 16:14] VITALS: BP 137/89; PULSE 83; TEMP 98.6; O2SAT 99
== END 2018-07-10 16:44 | DRG 34 ==
LOC: C.ER 19:02 → C.6T 21:08
PROVIDERS: ADMIT Internal Medicine; ATTEND Internal Medicine
DX: R47.1 Dysarthria and anarthria (principal); R53.1 Weakness; Z76.5 Malingerer [conscious simulation]; I10 Essential (primary) hypertension; J44.9 Chronic obstructive pulmonary disease, unspecified; F20.9 Schizophrenia, unspecified; F31.9 Bipolar disorder, unspecified; J32.4 Chronic pansinusitis; E78.5 Hyperlipidemia, unspecified; F98.5 Adult onset fluency disorder; K40.90 Unilateral inguinal hernia, without obstruction or gangrene, not specified as recurrent; Q21.1 Atrial septal defect; Z86.73 Personal history of transient ischemic attack (TIA), and cerebral infarction without residual deficits; F17.210 Nicotine dependence, cigarettes, uncomplicated; Z82.0 Family history of epilepsy and other diseases of the nervous system